=== PATIENT | male | born 1960 | race American Indian/Alaskan Native ===

== ENCOUNTER 2018-09-11 15:21 | Inpatient (IN) | payer MEDICAID, OTHER ==
[2018-09-11 16:09] VITALS: BMI 26.8
--- NOTE | 2018-09-11 16:30 | ED PDOC ---
Arrival/HPI - General Chief Complaint: Psychiatric Evaluation Time Seen by Provider: 09/11/18 16:07 Historian: Patient - History of Present Illness Narrative History of Present Illness (Text): 09/11/18 16:26 57 year old male, whose past medical history includes bipolar disorder (patient non compliant with medications), presents to the Emergency Department accompanied by criminal justice social worker, for a psychiatric evaluation. Patient reports depression, but denies any suicidal, homicidal ideation, or somatic complaints. Patient also denies any fevers, chills, headache, dizziness, chest pain, shortness of breath, dyspnea on exertion, cough, abdominal pain, nausea, vomiting, diarrhea, back pain, neck pain, urinary/bowel changes, or any other complaint. Time/Duration: Prior to Arrival Symptom Course: Unchanged Activities at Onset: Light Context: Home Past Medical History - Provider Review Nursing Documentation Reviewed: Yes - Infectious Disease Hx of Infectious Diseases: None - Cardiac Hx Hypertension: Yes (sometimes takes medication) - Pulmonary Hx Asthma: Yes - Neurological Hx Neurological Disorder: No - HEENT Hx HEENT Disorder: No - Renal Hx Renal Disorder: No - Endocrine/Metabolic Hx Endocrine Disorders: No - Hematological/Oncological Hx Blood Disorders: No - Integumentary Hx Dermatological Disorder: No - Musculoskeletal/Rheumatological Hx Musculoskeletal Disorders: No - Gastrointestinal Hx Gastrointestinal Disorders: No - Genitourinary/Gynecological Hx Genitourinary Disorders: No - Psychiatric Hx Psychophysiologic Disorder: No Hx Substance Use: No - Surgical History Other/Comment: peg tube insertion - Anesthesia Hx Anesthesia: Yes Hx Anesthesia Reactions: No Hx Malignant Hyperthermia: No Family/Social History - Physician Review Nursing Documentation Reviewed: Yes Family/Social History: Unknown Family HX Smoking Status: Unknown If Ever Smoked Hx Alcohol Use: No Hx Substance Use: No Allergies/Home Meds Allergies/Adverse Reactions: Allergies No Known Allergies Allergy (Verified 08/22/18 12:18) Review of Systems - Review of Systems Constitutional: absent: Fatigue, Fevers Eyes: absent: Vision Changes ENT: absent: Hearing Changes Respiratory: absent: SOB, Cough Cardiovascular: absent: Chest Pain Genitourinary Male: absent: Dysuria, Frequency Musculoskeletal: absent: Back Pain, Neck Pain Skin: absent: Rash Neurological: absent: Headache, Dizziness Endocrine: absent: Diaphoresis Hemo/Lymphatic: absent: Adenopathy Psychiatric: Depression. absent: Anxiety, Suicidal Ideation Physical Exam Vital Signs Reviewed: Yes Temperature: Afebrile Blood Pressure: Normal Pulse: Regular Respiratory Rate: Normal Appearance: Positive for: Well-Appearing, Non-Toxic, Comfortable, Other (poor hygiene) Mental Status: Positive for: Alert and Oriented X 3 - Systems Exam Head: Present: Atraumatic, Normocephalic Pupils: Present: PERRL Extroacular Muscles: Present: EOMI Conjunctiva: Present: Normal Neck: Present: Normal Range of Motion Respiratory/Chest: Present: Clear to Auscultation, Good Air Exchange. No: Respiratory Distress, Accessory Muscle Use Cardiovascular: Present: Regular Rate and Rhythm, Normal S1, S2. No: Murmurs Abdomen: Present: Other (dressing to abdomen wall, clean and dry). No: Tenderness, Distention, Peritoneal Signs Upper Extremity: Present: Normal Inspection. No: Cyanosis, Edema Lower Extremity: Present: Normal Inspection. No: Edema Neurological: Present: GCS=15, CN II-XII Intact, Speech Normal Skin: Present: Warm, Dry, Normal Color. No: Rashes Psychiatric: Present: Alert, Oriented x 3, Normal Insight, Normal Concentration Medical Decision Making ED Course and Treatment: 09/11/18 16:35 Impression: 57 year old male who presents to the ED accompanied by criminal justice social worker for a psychiatric evaluation. Plan: --- EKG -- Labs -- Chest X-Ray -- [facility] Crisis Evaluation -- Urinalysis -- Reassess and disposition Prior Visits: Notes and results from previous visits were reviewed. Progress Notes: EKG: NSR @ 80 bpm. Normal intervals. No S/T changes. 09/11/18 17:12 Labs show baseline anemia. 09/11/18 17:49 Chest X-Ray Impression: No acute findings. 09/11/18 19:44 Patient medically cleared pending psych 09/11/18 19:[address] Peraza pending psych dispo - RAD Interpretation Radiology Orders: 09/11/18 16:09 CHEST PORTABLE [RAD] Stat - Scribe Statement The provider has reviewed the documentation as recorded by the Scribe Mary Man Provider Scribe Attestation: All medical record entries made by the Scribe were at my direction and personally dictated by me. I have reviewed the chart and agree that the record accurately reflects my personal performance of the history, physical exam, medi david decision making, and the department course for this patient. I have also personally directed, reviewed, and agree with the discharge instructions and disposition. Disposition/Present on Arrival - Present on Arrival Any Indicators Present on Arrival: No History of DVT/PE: No History of Uncontrolled Diabetes: No Urinary Catheter: No History of Decub. Ulcer: No History Surgical Site Infection Following: None - Disposition Have Diagnosis and Disposition been Completed?: No Diagnosis: Bipolar 1 disorder Disposition Time: 19:45 Patient Plan: Admission Patient Problems: Current Active Problems Problem Status Onset Bipolar 1 disorder Acute Condition: [facility] Referrals: PCP,NO [Primary Care Provider] - Follow up with primary Forms: [employer] ([place])
[2018-09-11 16:52] LABS: BASO # 0.04 K/mm3 (0.0-2.0); EOS # 0.2 (0.0-0.7); EOS % 4.5 % (1.5-5.0); HEMOGLOBIN 11.3 g/dL (14.0-18.0); LYMPH # 2.4 (1.2-3.4); LYMPH % 58.6 % (22.0-35.0); MEAN CELL VOLUME 84.8 fl (80.0-105.0); MEAN CORPUSCULAR HEMOGLOBIN 27.6 pg (25.0-35.0); MEAN CORPUSCULAR HGB CONC 32.6 g/dl (31.0-37.0); MEAN PLATELET VOLUME 9.8 fl (7.0-11.0); MONO # 0.3 (0.1-0.6); MONO % 8.4 % (1.0-6.0); RBC 4.09 10^6/uL (3.5-6.1); RED CELL DISTRIBUTION WIDTH 15.1 % (11.5-14.5)
[2018-09-11 16:58] LABS: ALB/GLOB RATIO 1.1 (1.1-1.8); ALBUMIN 3.9 g/dL (3.0-4.8); ALT/SGPT 15 U/L (7-56); AST/SGOT 22 U/L (17-59); BLOOD UREA NITROGEN 12 mg/dL (7-21); CALCIUM 9.1 mg/dL (8.4-10.5); GFR NON-AFRICAN AMERICAN 53
--- NOTE | 2018-09-11 17:07 | CARD ---
APPROVED REPORT Date of service: 09/11/2018 EKG Measurement Heart [id number] <Conclusion> Normal sinus rhythm Normal ECG
--- NOTE | 2018-09-11 17:45 | RAD ---
Date of service: 09/11/2018 HISTORY: psych COMPARISON: No prior. FINDINGS: LUNGS: The lungs are well inflated and clear. PLEURA: No pleural effusions or pneumothorax. CARDIOVASCULAR: The heart is normal in size. No aortic atherosclerotic calcifications present. OSSEOUS STRUCTURES: Within normal limits for the patient's age. VISUALIZED UPPER ABDOMEN: Normal. OTHER FINDINGS: There are multiple round short can't pellets overlying the right thoracic cage. IMPRESSION: No acute findings.
[2018-09-11 18:58] LABS: URINE BILIRUBIN NEGATIVE (NEGATIVE); URINE BLOOD NEGATIVE (NEGATIVE); URINE GLUCOSE (UA) NEGATIVE (NEGATIVE); URINE LEUKOCYTE ESTERASE NEGATIVE Leu/uL (NEGATIVE); URINE PROTEIN NEGATIVE mg/dL (<30 mg/dL); URINE UROBILINOGEN 0.2 E.U./dL (<1 E.U./dL)
[2018-09-11 19:03] LABS: URINE APPEARANCE CLEAR (CLEAR); URINE COLOR YELLOW (YELLOW)
[2018-09-11 19:34] LABS: BARBITURATES, UR NEGATIVE (NEGATIVE); BENZODIAZEPINES, UR NEGATIVE (NEGATIVE); OPIATES, UR NEGATIVE (NEGATIVE); PHENCYCLIDINE, UR NEGATIVE (NEGATIVE)
[2018-09-11] MEDS ORDERED: Magnesium Hydroxide Susp 30 ml UD PO PRN (22:04)
[2018-09-11 22:11] VITALS: O2SAT 96
--- NOTE | 2018-09-11 23:14 | PCM.BM ---
<Elias Knox - Last Filed: 09/11/18 23:10> Treatment Plan Problems - Problems identified on initial assessmt Altered thought process Date Initiated: 09/11/18 Time Initiated: 23:11 Assessment reference: NA Status: Active Medication non-adherence Date Initiated: 09/11/18 Time Initiated: 23:11 Assessment reference: NA Status: Active Altered sleep p[attern Date Initiated: 09/11/18 Time Initiated: 23:12 Assessment reference: NA Status: Active Treatment assets and liabiliti Patient Assests: cooperative Patient Liabilities: live alone, poor support system, substance abuse, medical problems, imparied memory - Milieu Protocol Maintain good personal hygiene: daily Encourage regular showers, daily Remind patient to perform daily oral care Conduct patient checks and document Observation sheet: Q15 minutes Maintain personal safety: every shift Educate patient to report safety concerns to staff, every shift Monitor environment for contraband/sharps Medication safety: Monitor for expected outcome, potential side effects: every shift, Assess barriers to learning: every shift, Assess readiness for medication education: every shift Family Contact Family involvement: Patient does not wish Family/SO involvement Discharge/Continuing Care - Education Needs Education Needs: Patient Medication, Patient Diagnosis/Disease Process, Patient Coping Skills, Patient Community resources, Patient Activities of Daily Living, Patient Pain, Patient Nutrition, Patient Personal Hygiene/Grooming, Patient Aftercare Safety Plan - Discharge Discharge Criteria: Tolerates medication w/o severe side effects, Free of Suicidal thoughts, Normal sleep pattern, Ability to care for self, No longer exhibiting s/s of withdrawal, Reduction of target symptoms Discharge to:: Correction <Megan Ross - Last Filed: 09/12/18 13:54> - Diagnosis (1) Polysubstance abuse Status: Acute Interventions: 09/12/18 13:55 Monitoring withdrawal symptoms Medical detoxification Pharmacotherapy for alcohol/benzos/opioid dependence Maintaining sobriety Relapse prevention Possible rehabilitation Motivational interviewing 12-step programs: AA meetings (2) Bipolar 1 disorder Status: Acute Interventions: 09/12/18 13:55 Psychoeducation Psychopharmacology/adjustment of medications as needed/ monitoring possible side effects Monitor blood level of mood stabilizers Evaluate pt on daily basis Compliance with medications and follow up appointments Suicide and homicide risk assessment and prevention, coping strategies, safety plan Relapse prevention Reduction of symptoms Improve functional status Family involvement As outpatient: cognitive behavioral therapy <Sona Beyer Y - Last Filed: 09/13/18 15:09> Family Contact Family involvement: Famliy/SO not involved - Outside Agency [facility] Prevention Intervention Care involvment: Information-sharing Agency contact name: Alicja Rascon, shoe caser
[2018-09-12 07:55] LABS: GLUCOSE,FASTING 92 mg/dL (65-110); HDL CHOLESTEROL 40 mg/dL (29-60)
[2018-09-12 08:06] LABS: LDL CHOLESTEROL 97 mg/dL (0-129)
[2018-09-12] MEDS ORDERED: Albuterol HFA 90 mcg/actuation (8 g) IH PRN (11:39)
--- NOTE | 2018-09-12 12:33 | CP.PCM.CON ---
<JanesZbigniew parkerd - Last Filed: 09/12/18 14:55> History of Present Illness - History of Present Illness History of Present Illness: Ariel Marrero, PGY-1 Medicine Consult Note for Dr. Granda: CC: Not feeling himself Consulted For: Medical Management Pt is a 57 yo M with pmhx of poorly controlled asthma, HTN and bipolar disorder who presented to the [facility] accompanied by executive secretary social welfare for not feeling himself and was then was accepted to the psych floor. Pt in the ED reported depression, but denied SI/HI. Medical team is consulted for management of underlying medical conditions. Pt was seen on the psych floor in bed in the AM. Pt states that he took heroin day before yesterday, which he snorted. He states that he is having some abdominal pain, but otherwise denies any other acute complaints at this time. Pt states that he does not usually take anything for his asthma and does not have a rescue inhaler. Pt also reports that he takes one medication for his HTN but is not sure which medication he takes. At this time he denies fevers, chills, headache, lightheadedness, chest pain, palpitations, cough, SOB, n/v, c/d or dysuria. Pmhx: poorly controlled asthma, HTN and bipolar disorder Pshx: Denies All: NKDA Soc: Admits to smoking 1/2 ppd x 6 months, admits to social EtOH use (1 drink on weekends), admits to heroin use last used day before yesterday (snorted) Fam Hx: Denies Review of Systems - Review of Systems Review of Systems: 12 point ROS reviewed and negative except noted in HPI above Past Patient History - Infectious Disease Hx of Infectious Diseases: None - Past Social History Smoking Status: Unknown If Ever Smoked - CARDIAC Hx Hypertension: Yes (sometimes takes medication) - PULMONARY Hx Asthma: Yes - NEUROLOGICAL Hx Neurological Disorder: No - HEENT Hx HEENT Problems: No - RENAL Hx Chronic Kidney Disease: No - ENDOCRINE/METABOLIC Hx Endocrine Disorders: No - HEMATOLOGICAL/ONCOLOGICAL Hx Blood Disorders: No - INTEGUMENTARY Hx Dermatological Problems: No - MUSCULOSKELETAL/RHEUMATOLOGICAL Hx Musculoskeletal Disorders: No - GASTROINTESTINAL Hx Gastrointestinal Disorders: No - GENITOURINARY/GYNECOLOGICAL Hx Genitourinary Disorders: No - PSYCHIATRIC Hx Bipolar Disorder: Yes Hx Substance Use: Yes - SURGICAL HISTORY Other/Comment: peg tube insertion - ANESTHESIA Hx Anesthesia: Yes Hx Anesthesia Reactions: No Hx Malignant Hyperthermia: No Meds Allergies/Adverse Reactions: Allergies Allergy/AdvReac Type Severity Reaction Status Date / Time No Known Allergies Allergy Verified 09/11/18 21:30 - Medications Medications: Current Medications Acetaminophen (Tylenol 325mg Tab) 650 mg PO Q6H PRN PRN Reason: Pain, moderate (4-7) Last Admin: 09/11/18 22:19 Dose: 650 mg Al Hydrox/Mg Hydrox/Simethicone (Maalox Plus 30 Ml) 30 ml PO DAILY PRN PRN Reason: Upset Stomach Albuterol (Ventolin Hfa 90 Mcg/Actuation (8 G)) 2 puff IH [id number] PRN PRN Reason: Shortness of Breath Amlodipine Besylate (Norvasc) 5 mg PO DAILY DELMY Citalopram Hydrobromide (Celexa) 10 mg PO DAILY DELMY Last Admin: 09/12/18 08:07 Dose: 10 mg Clonidine HCl (Catapres) 0.1 mg PO Q12 PRN PRN Reason: withdrawal Last Admin: 09/11/18 22:20 Dose: 0.1 mg Magnesium Hydroxide (Milk Of Magnesia) 30 ml PO DAILY PRN PRN Reason: Constipation Zaleplon (Sonata) 5 mg PO HS PRN PRN Reason: Insomnia Last Admin: 09/11/18 22:19 Dose: 5 mg Physical Exam - Constitutional Appears: Well, Non-toxic, No Acute Distress - Head Exam Head Exam: ATRAUMATIC, NORMAL INSPECTION, NORMOCEPHALIC - Eye Exam Eye Exam: EOMI, Normal appearance, PERRL - Respiratory Exam Respiratory Exam: Clear to Auscultation Bilateral, NORMAL BREATHING PATTERN. absent: Accessory Muscle Use, Rales, Rhonchi, Wheezes, Respiratory Distress, Stridor - Cardiovascular Exam Cardiovascular Exam: REGULAR RHYTHM, +S1, +S2. absent: Gallop, Rubs - GI/Abdominal Exam GI & Abdominal Exam: Normal Bowel Sounds, Soft. absent: Distended, Firm, Guarding, Hernia, Tenderness - Extremities Exam Extremities exam: Positive for: normal inspection, tenderness, pedal pulses present. Negative for: calf tenderness, pedal edema - Back Exam Back exam: NORMAL INSPECTION. absent: CVA tenderness (L), CVA tenderness (R) - Neurological Exam Neurological exam: Alert, Oriented x3 - Psychiatric Exam Psychiatric exam: Depressed - Skin Skin Exam: Dry, Intact, Warm Results - Vital Signs Recent Vital Signs: Last Vital Signs Temp 98.1 F 09/12/18 07:26 Pulse 80 09/12/18 07:26 Resp 20 09/12/18 07:26 BP 118/72 09/12/18 07:26 Pulse Ox 96 09/11/18 22:10 - Labs Result Diagrams: 09/11/18 16:35 09/11/18 16:35 Labs: Laboratory Results - last 24 hr 09/11/18 09/11/18 09/11/18 16:35 16:35 16:35 WBC 4.0 L RBC 4.09 Hgb 11.3 L Hct 34.7 L MCV 84.8 MCH 27.6 MCHC 32.6 RDW 15.1 H Plt Count 310 MPV 9.8 Neut % (Auto) 27.5 L Lymph % (Auto) 58.6 H Erath % (Auto) 8.4 H Eos % (Auto) 4.5 Baso % (Auto) 1.0 Lymph # (Auto) 2.4 Erath # (Auto) 0.3 Eos # (Auto) 0.2 Baso # (Auto) 0.04 Absolute Neuts (auto) 1.11 L Sodium 137 Potassium 3.8 Chloride 103 Carbon Dioxide 26 Anion Gap 11 BUN 12 Creatinine 1.4 Est GFR ( Amer) > 60 Est GFR (Non-Af Amer) 53 Random Glucose 91 Fasting Glucose Calcium 9.1 Total Bilirubin 0.1 L AST 22 ALT 15 Alkaline Phosphatase 94 Total Protein 7.3 Albumin 3.9 Globulin 3.5 Albumin/Globulin Ratio 1.1 Triglycerides Cholesterol LDL Cholesterol Direct HDL Cholesterol TSH 3rd Generation Urine Color Urine Appearance Urine pH Ur Specific [place] Urine Protein Urine Glucose (UA) Urine Ketones Urine Blood Urine Nitrate Urine Bilirubin Urine Urobilinogen Ur Leukocyte Esterase Urine Opiates Screen Urine Methadone Screen Ur Barbiturates Screen Ur Phencyclidine Scrn Ur Amphetamines Screen U Benzodiazepines Scrn U Oth Cocaine Metabols U Cannabinoids Screen Alcohol, Quantitative < 10 09/11/18 09/11/18 09/12/18 18:30 18:30 07:20 WBC RBC Hgb Hct MCV MCH MCHC RDW Plt Count MPV Neut % (Auto) Lymph % (Auto) Erath % (Auto) Eos % (Auto) Baso % (Auto) Lymph # (Auto) Erath # (Auto) Eos # (Auto) Baso # (Auto) Absolute Neuts (auto) Sodium Potassium Chloride Carbon Dioxide Anion Gap BUN Creatinine Est GFR ( Amer) Est GFR (Non-Af Amer) Random Glucose Fasting Glucose 92 Calcium Total Bilirubin AST ALT Alkaline Phosphatase Total Protein Albumin Globulin Albumin/Globulin Ratio Triglycerides 97 Cholesterol 180 LDL Cholesterol Direct 97 HDL Cholesterol 40 TSH 3rd Generation Urine Color Yellow Urine Appearance Clear Urine pH 7.0 Ur Specific [place] <= 1.005 Urine Protein Negative Urine Glucose (UA) Negative Urine Ketones Negative Urine Blood Negative Urine Nitrate Negative Urine Bilirubin Negative Urine Urobilinogen 0.2 Ur Leukocyte Esterase Negative Urine Opiates Screen Negative Urine Methadone Screen Negative Ur Barbiturates Screen Negative Ur Phencyclidine Scrn Negative Ur Amphetamines Screen Negative U Benzodiazepines Scrn Negative U Oth Cocaine Metabols Negative U Cannabinoids Screen Negative Alcohol, Quantitative 09/12/18 07:20 WBC RBC Hgb Hct MCV MCH MCHC RDW Plt Count MPV Neut % (Auto) Lymph % (Auto) Erath % (Auto) Eos % (Auto) Baso % (Auto) Lymph # (Auto) Erath # (Auto) Eos # (Auto) Baso # (Auto) Absolute Neuts (auto) Sodium Potassium Chloride Carbon Dioxide Anion Gap BUN Creatinine Est GFR ( Amer) Est GFR (Non-Af Amer) Random Glucose Fasting Glucose Calcium Total Bilirubin AST ALT Alkaline Phosphatase Total Protein Albumin Globulin Albumin/Globulin Ratio Triglycerides Cholesterol LDL Cholesterol Direct HDL Cholesterol TSH 3rd Generation 1.69 Urine Color Urine Appearance Urine pH Ur Specific [place] Urine Protein Urine Glucose (UA) Urine Ketones Urine Blood Urine Nitrate Urine Bilirubin Urine Urobilinogen Ur Leukocyte Esterase Urine Opiates Screen Urine Methadone Screen Ur Barbiturates Screen Ur Phencyclidine Scrn Ur Amphetamines Screen U Benzodiazepines Scrn U Oth Cocaine Metabols U Cannabinoids Screen Alcohol, Quantitative Assessment & Plan - Assessment and Plan (Free Text) Assessment: Pt is a 57 yo M with pmhx of poorly controlled asthma, HTN and bipolar disorder who presented to the [facility] ED accompanied by executive secretary social welfare for not feeling himself and was then was accepted to the psych floor. Pt in the ED reported depression, but denied SI/HI. Medical team is consulted for management of underlying medical conditions. Plan: HTN: - Norvasc 5 qd - Hold if SBP is less than 100 - Cont with catapres Asthma - Ventolin HFA q6 PRN Bipolar Disorder: - Management as per primary team Thank you for consulting the medical team to care for this patient. We will be signing off at this time, re-consult as needed. Pt seen and discussed with Dr. Jesus Alberto Marrero, PGY-1 <Rogelio Granda - Last Filed: 09/12/18 15:32> Meds - Medications Medications: Current Medications Acetaminophen (Tylenol 325mg Tab) 650 mg PO Q6H PRN PRN Reason: Pain, moderate (4-7) Last Admin: 09/11/18 22:19 Dose: 650 mg Al Hydrox/Mg Hydrox/Simethicone (Maalox Plus 30 Ml) 30 ml PO DAILY PRN PRN Reason: Upset Stomach Albuterol (Ventolin Hfa 90 Mcg/Actuation (8 G)) 2 puff IH [id number] PRN PRN Reason: Shortness of Breath Amlodipine Besylate (Norvasc) 5 mg PO DAILY [facility] Clonidine HCl (Catapres) 0.1 mg PO Q12 PRN PRN Reason: withdrawal Last Admin: 09/11/18 22:20 Dose: 0.1 mg Divalproex Sodium (Depakote Dr (*Bid*)) 250 mg PO BID DELMY; Protocol Lorazepam (Ativan) 2 mg IM Q6H PRN PRN Reason: Agitation Lorazepam (Ativan) 2 mg PO Q6 PRN; Protocol PRN Reason: alcohol withdrawals Magnesium Hydroxide (Milk Of Magnesia) 30 ml PO DAILY PRN PRN Reason: Constipation Mirtazapine (Remeron) 15 mg PO HS [facility] Multivitamins/Minerals (Therapeutic-M Tab) 1 tab PO DAILY [facility] Ondansetron HCl (Zofran Odt) 4 mg PO Q8H PRN PRN Reason: Nausea/Vomiting Tramadol HCl (Ultram) 50 mg PO TID PRN PRN Reason: Pain, severe 7/10 Zaleplon (Sonata) 5 mg PO HS PRN PRN Reason: Insomnia Last Admin: 09/11/18 22:19 Dose: 5 mg Ziprasidone (Geodon Cap) 20 mg PO Q6H PRN; Protocol PRN Reason: psychosis/agitation Ziprasidone (Geodon Inj) 20 mg IM Q6H PRN; Protocol PRN Reason: severe agitaiton/psychosis Results - Vital Signs Recent Vital Signs: Last Vital Signs Temp 98.1 F 09/12/18 07:26 Pulse 80 09/12/18 07:26 Resp 20 09/12/18 07:26 BP 118/72 09/12/18 07:26 Pulse Ox 96 09/11/18 22:10 - Labs Result Diagrams: 09/11/18 16:35 09/11/18 16:35 Labs: Laboratory Results - last 24 hr 09/11/18 09/11/18 09/11/18 16:35 16:35 16:35 WBC 4.0 L RBC 4.09 Hgb 11.3 L Hct 34.7 L MCV 84.8 MCH 27.6 MCHC 32.6 RDW 15.1 H Plt Count 310 MPV 9.8 Neut % (Auto) 27.5 L Lymph % (Auto) 58.6 H Erath % (Auto) 8.4 H Eos % (Auto) 4.5 Baso % (Auto) 1.0 Lymph # (Auto) 2.4 Erath # (Auto) 0.3 Eos # (Auto) 0.2 Baso # (Auto) 0.04 Absolute Neuts (auto) 1.11 L Sodium 137 Potassium 3.8 Chloride 103 Carbon Dioxide 26 Anion Gap 11 BUN 12 Creatinine 1.4 Est GFR ( Amer) > 60 Est GFR (Non-Af Amer) 53 Random Glucose 91 Fasting Glucose Calcium 9.1 Total Bilirubin 0.1 L AST 22 ALT 15 Alkaline Phosphatase 94 Total Protein 7.3 Albumin 3.9 Globulin 3.5 Albumin/Globulin Ratio 1.1 Triglycerides Cholesterol LDL Cholesterol Direct HDL Cholesterol TSH 3rd Generation Urine Color Urine Appearance Urine pH Ur Specific [place] Urine Protein Urine Glucose (UA) Urine Ketones Urine Blood Urine Nitrate Urine Bilirubin Urine Urobilinogen Ur Leukocyte Esterase Urine Opiates Screen Urine Methadone Screen Ur Barbiturates Screen Ur Phencyclidine Scrn Ur Amphetamines Screen U Benzodiazepines Scrn U Oth Cocaine Metabols U Cannabinoids Screen Alcohol, Quantitative < 10 09/11/18 09/11/18 09/12/18 18:30 18:30 07:20 WBC RBC Hgb Hct MCV MCH MCHC RDW Plt Count MPV Neut % (Auto) Lymph % (Auto) Erath % (Auto) Eos % (Auto) Baso % (Auto) Lymph # (Auto) Erath # (Auto) Eos # (Auto) Baso # (Auto) Absolute Neuts (auto) Sodium Potassium Chloride Carbon Dioxide Anion Gap BUN Creatinine Est GFR ( Amer) Est GFR (Non-Af Amer) Random Glucose Fasting Glucose 92 Calcium Total Bilirubin AST ALT Alkaline Phosphatase Total Protein Albumin Globulin Albumin/Globulin Ratio Triglycerides 97 Cholesterol 180 LDL Cholesterol Direct 97 HDL Cholesterol 40 TSH 3rd Generation Urine Color Yellow Urine Appearance Clear Urine pH 7.0 Ur Specific [place] <= 1.005 Urine Protein Negative Urine Glucose (UA) Negative Urine Ketones Negative Urine Blood Negative Urine Nitrate Negative Urine Bilirubin Negative Urine Urobilinogen 0.2 Ur Leukocyte Esterase Negative Urine Opiates Screen Negative Urine Methadone Screen Negative Ur Barbiturates Screen Negative Ur Phencyclidine Scrn Negative Ur Amphetamines Screen Negative U Benzodiazepines Scrn Negative U Oth Cocaine Metabols Negative U Cannabinoids Screen Negative Alcohol, Quantitative 09/12/18 07:20 WBC RBC Hgb Hct MCV MCH MCHC RDW Plt Count MPV Neut % (Auto) Lymph % (Auto) Erath % (Auto) Eos % (Auto) Baso % (Auto) Lymph # (Auto) Erath # (Auto) Eos # (Auto) Baso # (Auto) Absolute Neuts (auto) Sodium Potassium Chloride Carbon Dioxide Anion Gap BUN Creatinine Est GFR ( Amer) Est GFR (Non-Af Amer) Random Glucose Fasting Glucose Calcium Total Bilirubin AST ALT Alkaline Phosphatase Total Protein Albumin Globulin Albumin/Globulin Ratio Triglycerides Cholesterol LDL Cholesterol Direct HDL Cholesterol TSH 3rd Generation 1.69 Urine Color Urine Appearance Urine pH Ur Specific [place] Urine Protein Urine Glucose (UA) Urine Ketones Urine Blood Urine Nitrate Urine Bilirubin Urine Urobilinogen Ur Leukocyte Esterase Urine Opiates Screen Urine Methadone Screen Ur Barbiturates Screen Ur Phencyclidine Scrn Ur Amphetamines Screen U Benzodiazepines Scrn U Oth Cocaine Metabols U Cannabinoids Screen Alcohol, Quantitative Attending/Attestation - Attestation I have personally seen and examined this patient.: Yes I have fully participated in the care of the patient.: Yes I have reviewed all pertinent clinical information: Yes Notes (Text): Patient seen and examined with the residents, agree with above Questioned about his asthma and states he has not had asthma symptoms "in a long time" and does not use any medication. Will add Albuterol prn. Regarding his HTN - bp currently on controlled. Medicine team will sign off, please call for any questions. Thank you.
--- NOTE | 2018-09-12 13:54 | PCM.PSYCH ---
Initial Psychiatric Evaluation - Initial Psychiatric Evaluation Type of Admission: Voluntary Legal Status: Capacity Chief Complaint (in patient's own words): "I was feeling life is not worth living..." Patient's Reaction to Hospitalization: pt was admitted for evaluation of depression, inability to function, disorganized thoughts. History of Present Illness and Precipitating Events: shortly pt is 57 year old male, not known previous psych h/o, self reported h/o bipolar disorder, denied previous psych admissions, denied h/o suicidal attempts, pt currently homeless, was brought in to the hospital for evaluation of depression, inability to function and "thoughts are not right.", passive wish to be , on top of that pt was using drugs, no social support, pt required further evaluation and stabilization and med adjustment. pt was seen and examined at the treatment team room with medical student. Patient presented with poor personal hygiene, there is strong body odor, difficult to stay focused and concentrate, fair ADLs. Patient seems to be poor and unreliable historian, especially questions which are related to the medical issues. Patient reports that that he became homeless about 1 months ago, before that patient was living with his sister Gurpreet who is very strict, she has a lot of rules", patient decided to leave her house, patient started to leave on streets, patient was using drugs such as heroin snorting, cocaine snorting, "my drug of choice is heroin, I would spend $40 a day on my habits, last time I used night prior to come to the hospital", patient reports that his public health social worker did not like the way he presented and brought patient to the hospital. Patient reports that "I was very angry, everything was getting into my nerves, I was agitated, that is why she brought me to the hospital" Patient reported that she was feeling depressed, hopeless, helpless, worthless, guilty, passive wish to be , patient denied any intent or plan to kill himself. Patient denied hearing voices, denied seeing things, but patient complains that "my thoughts are not right." Patient reports that all less comfortable, denies any diarrhea, denied opioid withdrawal symptoms. Patient reported that he was noncompliant with his medications, patient reports that he was feeling medication in [facility] [place], patient does not remember medication was changed to be on. Patient reported smoking cigarettes 10-15 a day, nicotine patch was offered, patient declined that offer. Past psychiatric history: Patient reported being diagnosed with bipolar disorder, denied suicidal attempts in the past. Pt reports one previous overdose last month were narcan was administered. Pt has been in detox 4 times with most recent 1 1/2 years ago in [place] where pt was sober for 1 year. Pt reports he relapsed 6 months ago on heroin. Medical history: Patient denied any major medical issues, respiratory report patient has PEG tube removed two weeks ago as per record, but patient does not remember inserted, does not know why it was inserted, as per history patient suffers from hypertension. Social history: Patient does not work, patient is homeless. Family history: Patient denied any family history of mental illnesses, denied history of suicidal attempts. Patient denied any legal history. Patient denied being abused in his life. 09/11/18 16:35 09/11/18 16:35 Lab Results 09/12/18 07:20: TSH 3rd Generation 1.69 09/12/18 07:20: Fasting Glucose 92, Triglycerides 97, Cholesterol 180, LDL Cholesterol Direct 97, HDL Cholesterol 40 09/11/18 18:30: Urine Opiates Screen Negative, Urine Methadone Screen Negative, Ur Barbiturates Screen Negative, Ur Phencyclidine Scrn Negative, Ur Amphetamines Screen Negative, U Benzodiazepines Scrn Negative, U Oth Cocaine Metabols Negative, U Cannabinoids Screen Negative 09/11/18 18:30: Urine Color Yellow, Urine Appearance Clear, Urine pH 7.0, Ur Specific [place] <= 1.005, Urine Protein Negative, Urine Glucose (UA) Negative, Urine Ketones Negative, Urine Blood Negative, Urine Nitrate Negative, Urine Bilirubin Negative, Urine Urobilinogen 0.2, Ur Leukocyte Esterase Negative 09/11/18 16:35: Alcohol, Quantitative < 10 09/11/18 16:35: Sodium 137, Potassium 3.8, Chloride 103, Carbon Dioxide 26, Anion Gap 11, BUN 12, Creatinine 1.4, Est GFR ( Amer) > 60, Est GFR (Non- Af Amer) 53, Random Glucose 91, Calcium 9.1, Total Bilirubin 0.1 L, AST 22, ALT 15, Alkaline Phosphatase 94, Total Protein 7.3, Albumin 3.9, Globulin 3.5, Albumin/Globulin Ratio 1.1 09/11/18 16:35: WBC 4.0 L, RBC 4.09, Hgb 11.3 L, Hct 34.7 L, MCV 84.8, MCH 27.6, MCHC 32.6, RDW 15.1 H, Plt Count 310, MPV 9.8, Neut % (Auto) 27.5 L, Lymph % (Auto) 58.6 H, [place] % (Auto) 8.4 H, Eos % (Auto) 4.5, Baso % (Auto) 1.0, Lymph # (Auto) 2.4, [place] # (Auto) 0.3, Eos # (Auto) 0.2, Baso # (Auto) 0.04, Absolute Neuts (auto) 1.11 L Vital Signs Temp Pulse Pulse Resp BP Pulse Ox 09/12/18 07:26 98.1 F 80 20 118/72 09/11/18 23:19 92 H 18 09/11/18 22:20 92 H 150/96 H 09/11/18 22:10 97.8 F 92 H 18 150/92 H 96 09/11/18 21:14 80 18 131/72 100 09/11/18 20:33 98.7 F 80 18 130/79 100 09/11/18 16:47 98.7 F 82 18 136/88 100 [facility], [phone] patient was on the following medications: Depakote 500 mg twice a day last filled in December 2017 and Amlodipine 5 mg daily filled December 2017 No recent medications The patient failed the outpatient lower level of care: Yes Current Medications: Active Medications Generic Name Dose Route Start Last Admin Trade Name Freq PRN Reason Stop Dose Admin Acetaminophen 650 mg 09/11/18 22:04 09/11/18 22:19 Tylenol 325mg Tab PO 650 mg Q6H PRN Administration Pain, moderate (4-7) Al Hydrox/Mg Hydrox/Simethicone 30 ml 09/11/18 22:04 Maalox Plus 30 Ml PO DAILY PRN Upset Stomach Citalopram Hydrobromide 10 mg 09/12/18 08:00 09/12/18 08:07 Celexa PO 10 mg DAILY DELMY Administration Clonidine HCl 0.1 mg 09/11/18 22:07 09/11/18 22:20 Catapres PO 0.1 mg Q12 PRN Administration withdrawal Magnesium Hydroxide 30 ml 09/11/18 22:04 Milk Of Magnesia PO DAILY PRN Constipation Zaleplon 5 mg 09/11/18 22:05 09/11/18 22:19 Sonata PO 5 mg HS PRN Administration Insomnia Present on Admission - Present on Admission Any Indicators Present on Admission: No Review of Systems - Review of Systems Systems not reviewed;Unavailable: Acuity of Condition - Constitutional Constitutional: As Per HPI - EENT Eyes: As Per HPI Ears: As Per HPI Nose/Mouth/Throat: As Per HPI - Cardiovascular Cardiovascular: As Per HPI - Respiratory Respiratory: As Per HPI - Gastrointestinal Gastrointestinal: As Per HPI - Genitourinary Genitourinary: As Per HPI - Reproductive: Male Reproductive:Male: As Per HPI - Musculoskeletal Musculoskeletal: As Per HPI - Integumentary Integumentary: As Per HPI - Neurological Neurological: As Per HPI - Psychiatric Psychiatric: As Per HPI - Endocrine Endocrine: As Per HPI - Hematologic/Lymphatic Hematologic: As Per HPI Past Patient History - Past Psychiatric History Previous Treatment History: Inpatient Prior Professional Help: See HPI Prior Psychiatric Treatment: See HPI At what hospital: See HPI Duration: See HPI Nature of Treatment: See HPI Explanation of prior treatment: See HPI - PSYCHIATRIC Hx Bipolar Disorder: Yes Hx Substance Use: Yes - Infectious Disease Hx of Infectious Diseases: None - CARDIAC Hx Hypertension: Yes (sometimes takes medication) - PULMONARY Hx Asthma: Yes - NEUROLOGICAL Hx Neurological Disorder: No - HEENT Hx HEENT Problems: No - RENAL Hx Chronic Kidney Disease: No - ENDOCRINE/METABOLIC Hx Endocrine Disorders: No - HEMATOLOGICAL/ONCOLOGICAL Hx Blood Disorders: No - INTEGUMENTARY Hx Dermatological Problems: No - MUSCULOSKELETAL/RHEUMATOLOGICAL Hx Musculoskeletal Disorders: No - GASTROINTESTINAL Hx Gastrointestinal Disorders: No - GENITOURINARY/GYNECOLOGICAL Hx Genitourinary Disorders: No - SURGICAL HISTORY Other/Comment: peg tube insertion - ANESTHESIA Hx Anesthesia: Yes Hx Anesthesia Reactions: No Hx Malignant Hyperthermia: No - Medical/Surgical History Reviewed & confirmed: by de Meds Allergies/Adverse Reactions: Allergies Allergy/AdvReac Type Severity Reaction Status Date / Time No Known Allergies Allergy Verified 09/11/18 21:30 Mental Status Examination - Personal Presentation Personal Presentation: Looks stated age - Affect Affect: Flat - Motor Activity Motor Activity: Calm, Psychomotor Retardation - Reliability in Providing Information Reliability in Providing Information: Poor, due to alteration in thoughts, Poor, due to altered mood, Poor, due to cognitve impairment - Speech Speech: Other (Slurred, underproductive) - Mood Mood: Depressed - Formal Thought Process Formal Thought Process: Other ("My thoughts are not right") - Obsessions/Compulsions Obsessions: None Compulsions: None - Cognitive Functions Orientation: Person, Place, Situation Sensorium: Alert Attention/Concentration: Easily distracted Abstract Thinking: [place] Estimate of Intelligence: Below average Judgement: Intact, as evidence by: Insight regarding need for hospitalization - Risk Risk: Withdrawal, Diminished functioning - Strength & Assets Inventory Strength & Assets Inventory: Cooperative, Other (Good physical health, abscess of hallucinations) - Limitations Limitations: Other (Patient is homeless, using drugs) Psychiatric Physical Exam - Physical Exam Reviewed and confirmed: Emergency Department Physical Exam Results - Vital Signs Recent Vital Signs: Last Vital Signs Temp 98.1 F 09/12/18 07:26 Pulse 80 09/12/18 07:26 Resp 20 09/12/18 07:26 BP 118/72 09/12/18 07:26 Pulse Ox 96 09/11/18 22:10 - Labs Result Diagrams: 09/11/18 16:35 09/11/18 16:35 Labs: Laboratory Results - last 24 hr 09/11/18 09/11/18 09/11/18 16:35 16:35 16:35 WBC 4.0 L RBC 4.09 Hgb 11.3 L Hct 34.7 L MCV 84.8 MCH 27.6 MCHC 32.6 RDW 15.1 H Plt Count 310 MPV 9.8 Neut % (Auto) 27.5 L Lymph % (Auto) 58.6 H [place] % (Auto) 8.4 H Eos % (Auto) 4.5 Baso % (Auto) 1.0 Lymph # (Auto) 2.4 [place] # (Auto) 0.3 Eos # (Auto) 0.2 Baso # (Auto) 0.04 Absolute Neuts (auto) 1.11 L Sodium 137 Potassium 3.8 Chloride 103 Carbon Dioxide 26 Anion Gap 11 BUN 12 Creatinine 1.4 Est GFR ( Amer) > 60 Est GFR (Non-Af Amer) 53 Random Glucose 91 Fasting Glucose Calcium 9.1 Total Bilirubin 0.1 L AST 22 ALT 15 Alkaline Phosphatase 94 Total Protein 7.3 Albumin 3.9 Globulin 3.5 Albumin/Globulin Ratio 1.1 Triglycerides Cholesterol LDL Cholesterol Direct HDL Cholesterol TSH 3rd Generation Urine Color Urine Appearance Urine pH Ur Specific [place] Urine Protein Urine Glucose (UA) Urine Ketones Urine Blood Urine Nitrate Urine Bilirubin Urine Urobilinogen Ur Leukocyte Esterase Urine Opiates Screen Urine Methadone Screen Ur Barbiturates Screen Ur Phencyclidine Scrn Ur Amphetamines Screen U Benzodiazepines Scrn U Oth Cocaine Metabols U Cannabinoids Screen Alcohol, Quantitative < 10 09/11/18 09/11/18 09/12/18 18:30 18:30 07:20 WBC RBC Hgb Hct MCV MCH MCHC RDW Plt Count MPV Neut % (Auto) Lymph % (Auto) [place] % (Auto) Eos % (Auto) Baso % (Auto) Lymph # (Auto) [place] # (Auto) Eos # (Auto) Baso # (Auto) Absolute Neuts (auto) Sodium Potassium Chloride Carbon Dioxide Anion Gap BUN Creatinine Est GFR ( Amer) Est GFR (Non-Af Amer) Random Glucose Fasting Glucose 92 Calcium Total Bilirubin AST ALT Alkaline Phosphatase Total Protein Albumin Globulin Albumin/Globulin Ratio Triglycerides 97 Cholesterol 180 LDL Cholesterol Direct 97 HDL Cholesterol 40 TSH 3rd Generation Urine Color Yellow Urine Appearance Clear Urine pH 7.0 Ur Specific [place] <= 1.005 Urine Protein Negative Urine Glucose (UA) Negative Urine Ketones Negative Urine Blood Negative Urine Nitrate Negative Urine Bilirubin Negative Urine Urobilinogen 0.2 Ur Leukocyte Esterase Negative Urine Opiates Screen Negative Urine Methadone Screen Negative Ur Barbiturates Screen Negative Ur Phencyclidine Scrn Negative Ur Amphetamines Screen Negative U Benzodiazepines Scrn Negative U Oth Cocaine Metabols Negative U Cannabinoids Screen Negative Alcohol, Quantitative 09/12/18 07:20 WBC RBC Hgb Hct MCV MCH MCHC RDW Plt Count MPV Neut % (Auto) Lymph % (Auto) [place] % (Auto) Eos % (Auto) Baso % (Auto) Lymph # (Auto) [place] # (Auto) Eos # (Auto) Baso # (Auto) Absolute Neuts (auto) Sodium Potassium Chloride Carbon Dioxide Anion Gap BUN Creatinine Est GFR ( Amer) Est GFR (Non-Af Amer) Random Glucose Fasting Glucose Calcium Total Bilirubin AST ALT Alkaline Phosphatase Total Protein Albumin Globulin Albumin/Globulin Ratio Triglycerides Cholesterol LDL Cholesterol Direct HDL Cholesterol TSH 3rd Generation 1.69 Urine Color Urine Appearance Urine pH Ur Specific [place] Urine Protein Urine Glucose (UA) Urine Ketones Urine Blood Urine Nitrate Urine Bilirubin Urine Urobilinogen Ur Leukocyte Esterase Urine Opiates Screen Urine Methadone Screen Ur Barbiturates Screen Ur Phencyclidine Scrn Ur Amphetamines Screen U Benzodiazepines Scrn U Oth Cocaine Metabols U Cannabinoids Screen Alcohol, Quantitative - EKG Data EKG Interpreted by: ER Physician EKG shows normal: Sinus rhythm Rate: Normal DSM Plan - DSM 5 DSM 5 Diagnosis: Rule out bipolar disorder as per history Pharyngeal disorder Rule out opioid withdrawals Cocaine abuse Rule out substance-induced mood disorder - Recommended/Plan of Treatment Treatment Recommendations and Plan of Treatment: Milieu/structure/supportive therapy SW consultation for discharge plan and social issues, pt is willing to be referred to rehab depakote resumed milligrams twice a day Remeron 15 mg at the nighttime for sleep as well as depression Multivitamins daily Symptomatic treatment for possible opioid withdrawals Medical consult was: family involvement Follow up on labs Will monitor closely Pt was educated about risk/benefits and alternatives of medications, coping strategies (safety plan, suicide prevention), relapse prevention, importance of follow up with psychiatrist and therapist, stay away from drugs/alcohol/smoking Projected ELOS: 7days Prognosis: guarded Discharge Plan and Discharge Criteria: Patient will be not depressed, not psychotic, would not pose danger to self or others, will be able to function, safe discharge plan. - Tobacco Cessation Tobacco Use Status for the last 30 days: Heavy User(>=5 cigs &/or cigars/pipes daily) Tobacco Use Treatment Practical Counseling Provided: No Reason for not providing: Patient refused Tobacco Use Treatment FDA-Approved Cessation Medication Provided: No Reason for not providing: Patient refused tobacco cessation medication - Alcohol or Substance Abuse Does the patient have an Alcohol or Substance Abuse Disorder: Yes Initial Psych Certification - Initial Certification I certify that the inpatient psychiatric facility admission was medically necessary for either: Treatment which could reasonbly be expected to improve pt's condition I estimate of hospitalization is necessary for proper treatment of the patient: 7 Unit of Time: Days My plans for post-hospital care for this patient are: Inpatient rehab, med management b outpatient psychiatrist
[2018-09-12] MEDS: Divalproex 250 mg DR (BID formulation) PO SCH (17:39)
[2018-09-13] MEDS: Multivitamin With Minerals Tab PO SCH (09:53)
[2018-09-13] MEDS: Divalproex 250 mg DR (BID formulation) PO SCH ×2 (09:53→16:25)
--- NOTE | 2018-09-13 15:57 | PCM.PYCHPN ---
Psychiatric Progress Note - Psychiatric Progress Note Patient seen today, length of contact: 25 min Patient Chief Complaint: "I feel little better, but my mind is not right..." Problems Identified/Issues Discussed: Symptoms: Current presentation, treatment plan, discharge plan. Medical Problems: See HPI Diagnostic Results: 09/11/18 16:35 09/11/18 16:35 Lab Results 09/12/18 07:25: RPR Nonreactive 09/12/18 07:20: TSH 3rd Generation 1.69 09/12/18 07:20: Fasting Glucose 92, Triglycerides 97, Cholesterol 180, LDL Cholesterol Direct 97, HDL Cholesterol 40 09/11/18 18:30: Urine Opiates Screen Negative, Urine Methadone Screen Negative, Ur Barbiturates Screen Negative, Ur Phencyclidine Scrn Negative, Ur Amphetamines Screen Negative, U Benzodiazepines Scrn Negative, U Oth Cocaine Metabols Negative, U Cannabinoids Screen Negative 09/11/18 18:30: Urine Color Yellow, Urine Appearance Clear, Urine pH 7.0, Ur Specific [place] <= 1.005, Urine Protein Negative, Urine Glucose (UA) Negative, Urine Ketones Negative, Urine Blood Negative, Urine Nitrate Negative, Urine Bilirubin Negative, Urine Urobilinogen 0.2, Ur Leukocyte Esterase Negative 09/11/18 16:35: Alcohol, Quantitative < 10 09/11/18 16:35: Sodium 137, Potassium 3.8, Chloride 103, Carbon Dioxide 26, Anion Gap 11, BUN 12, Creatinine 1.4, Est GFR ( Amer) > 60, Est GFR (Non- Af Amer) 53, Random Glucose 91, Calcium 9.1, Total Bilirubin 0.1 L, AST 22, ALT 15, Alkaline Phosphatase 94, Total Protein 7.3, Albumin 3.9, Globulin 3.5, Albumin/Globulin Ratio 1.1 09/11/18 16:35: WBC 4.0 L, RBC 4.09, Hgb 11.3 L, Hct 34.7 L, MCV 84.8, MCH 27.6, MCHC 32.6, RDW 15.1 H, Plt Count 310, MPV 9.8, Neut % (Auto) 27.5 L, Lymph % (Auto) 58.6 H, [place] % (Auto) 8.4 H, Eos % (Auto) 4.5, Baso % (Auto) 1.0, Lymph # (Auto) 2.4, [place] # (Auto) 0.3, Eos # (Auto) 0.2, Baso # (Auto) 0.04, Absolute Neuts (auto) 1.11 L Vital Signs Temp Pulse Pulse Resp BP Pulse Ox 09/13/18 09:52 77 117/72 09/13/18 07:10 97.9 F 77 20 117/72 09/12/18 17:44 74 129/80 09/12/18 16:00 74 129/80 09/12/18 07:26 98.1 F 80 20 118/72 09/11/18 23:19 92 H 18 09/11/18 22:20 92 H 150/96 H 09/11/18 22:10 97.8 F 92 H 18 150/92 H 96 09/11/18 21:14 80 18 131/72 100 09/11/18 20:33 98.7 F 80 18 130/79 100 09/11/18 16:47 98.7 F 82 18 136/88 100 DSM 5 Symptoms Update: shortly pt is 57 year old male, not known previous psych h/o, self reported h/o bipolar disorder, denied previous psych admissions, denied h/o suicidal attempts, pt currently homeless, was brought in to the hospital for evaluation of depression, inability to function and "thoughts are not right.", passive wish to be , on top of that pt was using drugs, no social support, pt required further evaluation and stabilization and med adjustment. pt was seen and examined at the treatment team today, patient presented with some improvement with his symptoms, patient took a shower, does not have anybody ordered, patient was able to concentrate and stay focused little bit better. Patient reported that she feels "little better", that he had a good night sleep, but still complained "my thoughts are not right" As per staff patient is not participating in unit activities, self isolating, but no aggression or agitation. As per staff patient had. Of incontinent in the urine, patient already was seen by medical team, if it will be continued, will call medical team again. all labs and vitals WNL. So far patient tolerates medications well, no side effects observed or reported, [place] 0, no EPS. No withdrawal symptoms observed or reported. DSM 5 Rule out bipolar disorder as per history Rule out substance-induced mood disorder Polysubstance abuse Medication Change: Yes Medical Record Reviewed: Yes Consults ordered or reviewed: Medical consult appreciated Mental Status Examination - Cognitive Function Orientation: Person, Place, Situation Memory: Impaired Attention: Poor Concentration: Poor Association: Loose Fund of Knowledge: Poor - Mood Mood: Depressed - Affect Affect: Flat - Formal Thought Process Formal Thought Process: Other ("My thoughts are not right") - Suicidal Ideation Suicidal Ideation: No - Homicidal Ideation Homicidal Ideation: No Goal/Treatment Plan - Goal/Treatment Plan Need for Continued Stay: Remain at risks for inpatient hospitalization, Severe depression anxiety, Discharge may exacerbated symptoms, Severe functional impairment Progress Toward Problem(s) and Goals/Treatment Plan: Milieu/structure/supportive therapy SW consultation for discharge plan and social issues, pt is willing to be referred to rehab depakote 250 mg bid for mood stabilization Remeron 15 mg at the nighttime for sleep as well as depression Multivitamins daily Symptomatic treatment for possible opioid withdrawals Medical consult was: family involvement Follow up on labs Will monitor closely Pt was educated about risk/benefits and alternatives of medications, coping strategies (safety plan, suicide prevention), relapse prevention, importance of follow up with psychiatrist and therapist, stay away from drugs/alcohol/smoking Estimated Date of D/C: 09/18/18
[2018-09-14] MEDS: Divalproex 250 mg DR (BID formulation) PO SCH ×2 (09:13→16:51)
[2018-09-14] MEDS: Multivitamin With Minerals Tab PO SCH (09:14)
--- NOTE | 2018-09-14 09:20 | PCM.PYCHPN ---
Psychiatric Progress Note - Psychiatric Progress Note Patient seen today, length of contact: 25 min Problems Identified/Issues Discussed: I reviewed assessment and recent notes. Patient was interviewed at bedside. He is superficially cooperative but minimally engaged with questioning. Responses are brief. Patient appears preoccupied and doesn't even turn his head on the bed to respond to me. Presently patient denies any new concerns including new discomfort or pain. Reports he is sleeping well. He denies experiencing hallucinations however staff note that patient still appears disorganized. Overall he has been calm and keeping a low profile. He keeps to himself and doesn't participate in groups or activities. Diagnostic Results: Rule out bipolar disorder as per history Pharyngeal disorder Rule out opioid withdrawals Cocaine abuse Rule out substance-induced mood disorder Medication Change: Yes (Added risperdal 0.5 mg HS ) Medical Record Reviewed: Yes Mental Status Examination - Cognitive Function Orientation: Person, Place, Situation Memory: Impaired Attention: Poor Concentration: Poor Association: Loose Fund of Knowledge: Poor - Mood Mood: Depressed - Affect Affect: Flat - Speech Speech: Soft - Formal Thought Process Formal Thought Process: Loosening of associations, Other ("My thoughts are not right") - Suicidal Ideation Suicidal Ideation: No - Homicidal Ideation Homicidal Ideation: No Goal/Treatment Plan - Goal/Treatment Plan Need for Continued Stay: Remain at risks for inpatient hospitalization, Severe depression anxiety, Discharge may exacerbated symptoms, Severe functional impairment Progress Toward Problem(s) and Goals/Treatment Plan: * c/w current tx and plan * Added risperdal 0.5 mg HS for disorganization on 09/14/18 * No new weekend lab results thus far * Vitals reviewed and noted below: Selected Entries 09/13/18 09/13/18 07:10 16:15 Temperature 97.9 F Pulse Rate 77 79 Respiratory 20 Rate Blood Pressure 117/72 114/71 Estimated Date of D/C: 09/18/18
[2018-09-15] MEDS: Multivitamin With Minerals Tab PO SCH (08:41)
[2018-09-15] MEDS: Divalproex 250 mg DR (BID formulation) PO SCH ×2 (08:41→15:42)
--- NOTE | 2018-09-15 09:15 | PCM.PYCHPN ---
Psychiatric Progress Note - Psychiatric Progress Note Patient seen today, length of contact: 25 min Problems Identified/Issues Discussed: I reviewed recent notes and patient was interviewed at bedside again. He remains superficially cooperative but minimally engaged with questioning. Patient is minimally verbal and responses are brief. Patient appears preoccupied and doesn't even turn his head on the bed to respond to me. Presently patient denies any new concerns including new discomfort or pain. Reports he is sleeping well. He denies experiencing hallucinations however staff note that patient still appears disorganized. He was observed crying by himself on Sunday and told staff "I'm upset about a lot of things". It is still difficult for patient to trust and share. Overall he has been calm and keeping a low profile. He keeps to himself and doesn't participate in groups or activities. Diagnostic Results: Rule out bipolar disorder as per history Pharyngeal disorder Rule out opioid withdrawals Cocaine abuse Rule out substance-induced mood disorder Medication Change: Yes (Increased risperdal to 1 mg HS ) Medical Record Reviewed: Yes Mental Status Examination - Cognitive Function Orientation: Person, Place, Situation Memory: Impaired Attention: Poor Concentration: Poor Association: Loose Fund of Knowledge: Poor - Mood Mood: Depressed - Affect Affect: Flat - Speech Speech: Soft - Formal Thought Process Formal Thought Process: Paranoia, Loosening of associations, Other ("My thoughts are not right") - Suicidal Ideation Suicidal Ideation: No - Homicidal Ideation Homicidal Ideation: No Goal/Treatment Plan - Goal/Treatment Plan Need for Continued Stay: Remain at risks for inpatient hospitalization, Severe depression anxiety, Discharge may exacerbated symptoms, Severe functional impairment Progress Toward Problem(s) and Goals/Treatment Plan: * c/w current tx and plan * Increased risperdal to 1 mg HS for disorganization & negative symptoms on 09/15/18 * No new weekend lab results * Vitals reviewed and noted below: 09/14/18 09/14/18 09/15/18 07:09 16:00 05:23 Temperature 98.4 F Pulse Rate 76 102 H 116 H Respiratory 20 Rate Blood Pressure 114/71 109/66 147/90 Estimated Date of D/C: 09/18/18
[2018-09-16] MEDS ORDERED: Benzocaine/Menthol (Cepacol) Lozenge MT PRN (10:56)
[2018-09-16] MEDS: Divalproex 250 mg DR (BID formulation) PO SCH ×2 (11:03→17:03)
[2018-09-16] MEDS: Multivitamin With Minerals Tab PO SCH (11:04)
--- NOTE | 2018-09-16 11:51 | CP.PCM.PN ---
<Umang Kwan - Last Filed: 09/16/18 11:48> Subjective - Date & Time of Evaluation Date of Evaluation: 09/16/18 Time of Evaluation: 11:48 - Subjective Subjective: Patient seen and examined at bedside. Patient states he has had cough and congestion for the last 5 days with no improvement. Patient has not taken any medications for his symptoms. Denies chest pain, shortness of breath, nausea, vomiting, diarrhea, fever, chills, myalgias. Objective - Vital Signs/Intake and Output Vital Signs (last 24 hours): Temp Pulse Resp BP Pulse Ox 98 F 76 18 114/76 96 09/16/18 07:00 09/16/18 11:02 09/16/18 07:00 09/16/18 11:02 09/11/18 22:10 - Medications Medications: Current Medications Acetaminophen (Tylenol 325mg Tab) 650 mg PO Q6H PRN PRN Reason: Pain, moderate (4-7) Last Admin: 09/11/18 22:19 Dose: 650 mg Al Hydrox/Mg Hydrox/Simethicone (Maalox Plus 30 Ml) 30 ml PO DAILY PRN PRN Reason: Upset Stomach Albuterol (Ventolin Hfa 90 Mcg/Actuation (8 G)) 2 puff IH [id number] PRN PRN Reason: Shortness of Breath Amlodipine Besylate (Norvasc) 5 mg PO DAILY [facility] Last Admin: 09/16/18 11:02 Dose: 5 mg Ascorbic Acid (Vitamin C 500 Mg Tab) 500 mg PO DAILY [facility] Last Admin: 09/16/18 11:05 Dose: 500 mg Benzocaine/Menthol (Cepacol Sore Throat) 1 chas MT Q2H PRN PRN Reason: Sore Throat Clonidine HCl (Catapres) 0.1 mg PO Q12 PRN PRN Reason: withdrawal Last Admin: 09/15/18 18:11 Dose: 0.1 mg Divalproex Sodium (Depakote Dr (*Bid*)) 250 mg PO BID [facility]; Protocol Last Admin: 09/16/18 11:03 Dose: 250 mg Lorazepam (Ativan) 2 mg IM Q6H PRN PRN Reason: Agitation Lorazepam (Ativan) 2 mg PO Q6 PRN; Protocol PRN Reason: alcohol withdrawals Last Admin: 09/15/18 15:58 Dose: 2 mg Magnesium Hydroxide (Milk Of Magnesia) 30 ml PO DAILY PRN PRN Reason: Constipation Mirtazapine (Remeron) 15 mg PO HS [facility] Last Admin: 09/15/18 21:50 Dose: 15 mg Multivitamins/Minerals (Therapeutic-M Tab) 1 tab PO DAILY [facility] Last Admin: 09/16/18 11:04 Dose: 1 tab Nicotine (Nicoderm Cq) 1 patch TD DAILY [facility] Last Admin: 09/16/18 11:02 Dose: 1 patch Ondansetron HCl (Zofran Odt) 4 mg PO Q8H PRN PRN Reason: Nausea/Vomiting Risperidone (Risperdal Tab) 1 mg PO HS [facility]; Protocol Last Admin: 09/15/18 21:49 Dose: 1 mg Tramadol HCl (Ultram) 50 mg PO TID PRN PRN Reason: Pain, severe 12/11 Last Admin: 09/15/18 18:11 Dose: 50 mg Zaleplon (Sonata) 5 mg PO HS PRN PRN Reason: Insomnia Last Admin: 09/11/18 22:19 Dose: 5 mg Ziprasidone (Geodon Cap) 20 mg PO Q6H PRN; Protocol PRN Reason: psychosis/agitation Last Admin: 09/15/18 15:58 Dose: 20 mg Ziprasidone (Geodon Inj) 20 mg IM Q6H PRN; Protocol PRN Reason: severe agitaiton/psychosis - Labs Labs: 09/11/18 16:35 09/11/18 16:35 - Constitutional Appears: Non-toxic, No Acute Distress - Head Exam Head Exam: ATRAUMATIC, NORMAL INSPECTION, NORMOCEPHALIC - ENT Exam ENT Exam: Mucous Membranes Moist Additional comments: Erythema noted in posterior pharynx - Neck Exam Neck Exam: absent: Lymphadenopathy - Respiratory Exam Respiratory Exam: Decreased Breath Sounds, NORMAL BREATHING PATTERN. absent: Rales, Rhonchi, Wheezes - Cardiovascular Exam Cardiovascular Exam: RRR, +S1, +S2. absent: Gallop, Irregular Rhythm, Murmur - GI/Abdominal Exam GI & Abdominal Exam: Soft, Normal Bowel Sounds. absent: Tenderness - Extremities Exam Extremities Exam: Normal Inspection. absent: Pedal Edema, Tenderness - Neurological Exam Neurological Exam: Alert, Awake, CN II-XII Intact, Oriented x3 - Psychiatric Exam Psychiatric exam: Normal Affect, Normal Mood - Skin Skin Exam: Intact, Normal Color, Warm Assessment and Plan - Assessment and Plan (Free Text) Plan: 57 year old male with medical history of asthma, HTN, and bipolar disorder who initially presented for not feeling himself and was subsequently admitted to psychiatry floor. Patient reevaluated today for worsening cough and congestion, found to have bronchitis. Bronchitis: Azithromycin 500 mg today Continue Azithromycin 250 mg daily x 4 days starting tomorrow Guaifenesin and Cepacol added HTN: Continue Norvasc Continue Catapres Asthma Continue Ventolin Bipolar Disorder: Management as per psychiatry [place], PGY-3 <Kike Jackson - Last Filed: 09/16/18 16:02> Objective - Vital Signs/Intake and Output Vital Signs (last 24 hours): Temp Pulse Resp BP Pulse Ox 98 F 76 18 114/76 96 09/16/18 07:00 09/16/18 11:02 09/16/18 07:00 09/16/18 11:02 09/11/18 22:10 - Medications Medications: Current Medications Acetaminophen (Tylenol 325mg Tab) 650 mg PO Q6H PRN PRN Reason: Pain, moderate (4-7) Last Admin: 09/11/18 22:19 Dose: 650 mg Al Hydrox/Mg Hydrox/Simethicone (Maalox Plus 30 Ml) 30 ml PO DAILY PRN PRN Reason: Upset Stomach Albuterol (Ventolin Hfa 90 Mcg/Actuation (8 G)) 2 puff IH [id number] PRN PRN Reason: Shortness of Breath Amlodipine Besylate (Norvasc) 5 mg PO DAILY [facility] Last Admin: 09/16/18 11:02 Dose: 5 mg Ascorbic Acid (Vitamin C 500 Mg Tab) 500 mg PO DAILY [facility] Last Admin: 09/16/18 11:05 Dose: 500 mg Azithromycin (Zithromax) 250 mg PO DAILY [facility]; Protocol Stop: 09/20/18 23:00 Benzocaine/Menthol (Cepacol Sore Throat) 1 chas MT Q2H PRN PRN Reason: Sore Throat Clonidine HCl (Catapres) 0.1 mg PO Q12 PRN PRN Reason: withdrawal Last Admin: 09/15/18 18:11 Dose: 0.1 mg Divalproex Sodium (Depakote Dr (*Bid*)) 250 mg PO BID [facility]; Protocol Last Admin: 09/16/18 11:03 Dose: 250 mg Guaifenesin (Robitussin) 100 mg PO Q4H PRN PRN Reason: Cough Last Admin: 09/16/18 12:23 Dose: 100 mg Lorazepam (Ativan) 2 mg IM Q6H PRN PRN Reason: Agitation Lorazepam (Ativan) 2 mg PO Q6 PRN; Protocol PRN Reason: alcohol withdrawals Last Admin: 09/15/18 15:58 Dose: 2 mg Magnesium Hydroxide (Milk Of Magnesia) 30 ml PO DAILY PRN PRN Reason: Constipation Mirtazapine (Remeron) 15 mg PO HS [facility] Last Admin: 09/15/18 21:50 Dose: 15 mg Multivitamins/Minerals (Therapeutic-M Tab) 1 tab PO DAILY [facility] Last Admin: 09/16/18 11:04 Dose: 1 tab Nicotine (Nicoderm Cq) 1 patch TD DAILY [facility] Last Admin: 09/16/18 11:02 Dose: 1 patch Ondansetron HCl (Zofran Odt) 4 mg PO Q8H PRN PRN Reason: Nausea/Vomiting Risperidone (Risperdal Tab) 1 mg PO HS [facility]; Protocol Last Admin: 09/15/18 21:49 Dose: 1 mg Sodium Chloride ([place] Nasal [place]) 0 ml NS BID [facility] Tramadol HCl (Ultram) 50 mg PO TID PRN PRN Reason: Pain, severe 710 Last Admin: 09/15/18 18:11 Dose: 50 mg Zaleplon (Sonata) 5 mg PO HS PRN PRN Reason: Insomnia Last Admin: 09/11/18 22:19 Dose: 5 mg Ziprasidone (Geodon Cap) 20 mg PO Q6H PRN; Protocol PRN Reason: psychosis/agitation Last Admin: 09/15/18 15:58 Dose: 20 mg Ziprasidone (Geodon Inj) 20 mg IM Q6H PRN; Protocol PRN Reason: severe agitaiton/psychosis - Labs Labs: 09/11/18 16:35 09/11/18 16:35 Attending/Attestation - Attestation I have personally seen and examined this patient.: Yes I have fully participated in the care of the patient.: Yes I have reviewed all pertinent clinical information, including history, physical exam and plan: Yes Notes (Text): 09/16/18 15:56 Attending note; Patient seen and examined in psych floor. Patient is alert and awake. Complaining of nasal congestion. Denies any fevers, chills. Denies any urinary, bowel symptoms. Denies any nausea, vomiting. Tolerating diet well 1. Patient is a 57-year-old male with a history of asthma is admitted with URI symptoms. Currently afebrile and nontoxic. Recent chest x-ray is negative for infiltrate Continue albuterol nebulizer. Started on p.o. azithromycin saline Nasal spray ordered. cepacol lozenges and Robitussin ordered. 2. Hypertension; continue Norvasc . 3. Active smoking; smoking cessation is strongly advised . Currently on NicoDerm patch . 4. Heroin abuse; drug abuse cessation is strongly advised. 5. Anxiety depression; continue psych medications per psychiatrist. Patient needs close outpatient Follow-up with PMD upon discharge.
[2018-09-16] MEDS ORDERED: guaiFENesin 100 mg/5 ml Syrup UD PO PRN (12:00)
--- NOTE | 2018-09-16 12:22 | PCM.PYCHPN ---
Psychiatric Progress Note - Psychiatric Progress Note Patient seen today, length of contact: 30min Patient Chief Complaint: "I dong feel good, I have a chest congestion..." Problems Identified/Issues Discussed: Symptoms: Current presentation, treatment plan, discharge plan. Medical Problems: See HPI Diagnostic Results: 09/11/18 16:35 09/11/18 16:35 Lab Results 09/12/18 07:25: RPR Nonreactive 09/12/18 07:20: TSH 3rd Generation 1.69 09/12/18 07:20: Fasting Glucose 92, Triglycerides 97, Cholesterol 180, LDL Cholesterol Direct 97, HDL Cholesterol 40 09/11/18 18:30: Urine Opiates Screen Negative, Urine Methadone Screen Negative, Ur Barbiturates Screen Negative, Ur Phencyclidine Scrn Negative, Ur Amphetamines Screen Negative, U Benzodiazepines Scrn Negative, U Oth Cocaine Metabols Negative, U Cannabinoids Screen Negative 09/11/18 18:30: Urine Color Yellow, Urine Appearance Clear, Urine pH 7.0, Ur Specific [place] <= 1.005, Urine Protein Negative, Urine Glucose (UA) Negative, Urine Ketones Negative, Urine Blood Negative, Urine Nitrate Negative, Urine Bilirubin Negative, Urine Urobilinogen 0.2, Ur Leukocyte Esterase Negative 09/11/18 16:35: Alcohol, Quantitative < 10 09/11/18 16:35: Sodium 137, Potassium 3.8, Chloride 103, Carbon Dioxide 26, Anion Gap 11, BUN 12, Creatinine 1.4, Est GFR ( Amer) > 60, Est GFR (Non- Af Amer) 53, Random Glucose 91, Calcium 9.1, Total Bilirubin 0.1 L, AST 22, ALT 15, Alkaline Phosphatase 94, Total Protein 7.3, Albumin 3.9, Globulin 3.5, Albumin/Globulin Ratio 1.1 09/11/18 16:35: WBC 4.0 L, RBC 4.09, Hgb 11.3 L, Hct 34.7 L, MCV 84.8, MCH 27.6, MCHC 32.6, RDW 15.1 H, Plt Count 310, MPV 9.8, Neut % (Auto) 27.5 L, Lymph % (Auto) 58.6 H, Crisp % (Auto) 8.4 H, Eos % (Auto) 4.5, Baso % (Auto) 1.0, Lymph # (Auto) 2.4, Crisp # (Auto) 0.3, Eos # (Auto) 0.2, Baso # (Auto) 0.04, Absolute Neuts (auto) 1.11 L Vital Signs Temp Pulse Pulse Resp BP Pulse Ox 09/13/18 09:52 77 117/72 09/13/18 07:10 97.9 F 77 20 117/72 09/12/18 17:44 74 129/80 09/12/18 16:00 74 129/80 09/12/18 07:26 98.1 F 80 20 118/72 09/11/18 23:19 92 H 18 09/11/18 22:20 92 H 150/96 H 09/11/18 22:10 97.8 F 92 H 18 150/92 H 96 09/11/18 21:14 80 18 131/72 100 09/11/18 20:33 98.7 F 80 18 130/79 100 09/11/18 16:47 98.7 F 82 18 136/88 100 Temp Pulse Resp BP Pulse Ox 98 F 76 18 114/76 96 09/16/18 07:00 09/16/18 11:02 09/16/18 07:00 09/16/18 11:02 09/11/18 22:10 DSM 5 Symptoms Update: shortly pt is 57 year old male, not known previous psych h/o, self reported h/o bipolar disorder, denied previous psych admissions, denied h/o suicidal attempts, pt currently homeless, was brought in to the hospital for evaluation of depression, inability to function and "thoughts are not right.", passive wish to be , on top of that pt was using drugs, no social support, pt required further evaluation and stabilization and med adjustment. pt was seen and examined at the treatment team today, patient said that he does not feel well because of "chest congestion, I fill chills and sore throat", pt said for the past week he was feeling this way and "I am not feeling any better, may I see a medical doctor?", this junior underwriter started vit C, cepacol as well, me dical f/u will be called. pt reported minimal improvement with his symptoms. transient feeling of hopelessness, pt sill wants to be referred to inpatient rehab. As per staff patient is not participating in unit activities, self isolating, but no aggression or agitation. So far patient tolerates medications well, no side effects observed or reported, Cammie 0, no EPS. No withdrawal symptoms observed or reported. DSM 5 Rule out bipolar disorder as per history Rule out substance-induced mood disorder Polysubstance abuse Medication Change: Yes (depakote increased) Medical Record Reviewed: Yes Consults ordered or reviewed: Medical consult appreciated Mental Status Examination - Cognitive Function Orientation: Person, Place, Situation Memory: Impaired Attention: Poor Concentration: Poor Association: Loose Fund of Knowledge: Poor - Mood Mood: Depressed - Affect Affect: Flat - Speech Speech: Soft - Formal Thought Process Formal Thought Process: Paranoia (some improvement), Loosening of associations, Other ("My thoughts are not right") - Suicidal Ideation Suicidal Ideation: No - Homicidal Ideation Homicidal Ideation: No Goal/Treatment Plan - Goal/Treatment Plan Need for Continued Stay: Remain at risks for inpatient hospitalization, Severe depression anxiety, Discharge may exacerbated symptoms, Severe functional imp airment Progress Toward Problem(s) and Goals/Treatment Plan: Milieu/structure/supportive therapy SW consultation for discharge plan and social issues, pt is willing to be referred to rehab depakote 500 mg bid for mood stabilization Remeron 15 mg at the nighttime for sleep as well as depression Multivitamins daily Symptomatic treatment for possible opioid withdrawals Medical consult was: family involvement Follow up on labs Will monitor closely Pt was educated about risk/benefits and alternatives of medications, coping strategies (safety plan, suicide prevention), relapse prevention, importance of follow up with psychiatrist and therapist, stay away from drugs/alcohol/smoking Estimated Date of D/C: 09/18/18
[2018-09-16] MEDS: Alum-Mag Hydrox-Simethicone Susp (30 mL) PO PRN (15:00)
[2018-09-17] MEDS: Divalproex 250 mg DR (BID formulation) PO SCH (10:39)
--- NOTE | 2018-09-17 12:05 | CP.PCM.PN ---
<Umang Kwan - Last Filed: 09/17/18 12:00> Subjective - Date & Time of Evaluation Date of Evaluation: 09/17/18 Time of Evaluation: 10:00 - Subjective Subjective: Patient seen and examined at bedside. Patient states he has had episodes of not being able to make it to the bathroom to urinate. It was been happening over the last several months. Denies chest pain, shortness of breath, nausea, vomiting, diarrhea, fever, chills, dysuria, increased urinary frequency. Objective - Vital Signs/Intake and Output Vital Signs (last 24 hours): Temp Pulse Resp BP Pulse Ox 97.8 F 87 18 116/80 96 09/17/18 07:17 09/17/18 10:38 09/16/18 07:00 09/17/18 10:38 09/11/18 22:10 - Medications Medications: Current Medications Acetaminophen (Tylenol 325mg Tab) 650 mg PO Q6H PRN PRN Reason: Pain, moderate (4-7) Last Admin: 09/11/18 22:19 Dose: 650 mg Al Hydrox/Mg Hydrox/Simethicone (Maalox Plus 30 Ml) 30 ml PO DAILY PRN PRN Reason: Upset Stomach Last Admin: 09/16/18 15:00 Dose: 30 ml Albuterol (Ventolin Hfa 90 Mcg/Actuation (8 G)) 2 puff IH [id number] PRN PRN Reason: Shortness of Breath Amlodipine Besylate (Norvasc) 5 mg PO DAILY [facility] Last Admin: 09/17/18 10:38 Dose: 5 mg Ascorbic Acid (Vitamin C 500 Mg Tab) 500 mg PO DAILY [facility] Last Admin: 09/17/18 10:40 Dose: 500 mg Azithromycin (Zithromax) 250 mg PO DAILY [facility]; Protocol Stop: 09/20/18 23:00 Last Admin: 09/17/18 10:40 Dose: 250 mg Benzocaine/Menthol (Cepacol Sore Throat) 1 chas MT Q2H PRN PRN Reason: Sore Throat Clonidine HCl (Catapres) 0.1 mg PO Q12 PRN PRN Reason: withdrawal Last Admin: 09/15/18 18:11 Dose: 0.1 mg Divalproex Sodium (Depakote Dr (*Bid*)) 250 mg PO BID [facility]; Protocol Last Admin: 09/17/18 10:39 Dose: 250 mg Guaifenesin (Robitussin) 100 mg PO Q4H PRN PRN Reason: Cough Last Admin: 09/16/18 12:23 Dose: 100 mg Lorazepam (Ativan) 2 mg IM Q6H PRN PRN Reason: Agitation Lorazepam (Ativan) 2 mg PO Q6 PRN; Protocol PRN Reason: alcohol withdrawals Last Admin: 09/15/18 15:58 Dose: 2 mg Magnesium Hydroxide (Milk Of Magnesia) 30 ml PO DAILY PRN PRN Reason: Constipation Mirtazapine (Remeron) 15 mg PO HS [facility] Last Admin: 09/16/18 21:13 Dose: 15 mg Multivitamins/Minerals (Therapeutic-M Tab) 1 tab PO DAILY [facility] Last Admin: 09/16/18 11:04 Dose: 1 tab Nicotine (Nicoderm Cq) 1 patch TD DAILY [facility] Last Admin: 09/16/18 11:02 Dose: 1 patch Ondansetron HCl (Zofran Odt) 4 mg PO Q8H PRN PRN Reason: Nausea/Vomiting Risperidone (Risperdal Tab) 1 mg PO HS [facility]; Protocol Last Admin: 09/16/18 21:13 Dose: 1 mg Sodium Chloride ([place] Nasal [place]) 0 ml NS BID [facility] Last Admin: 09/16/18 17:05 Dose: 2 spray Tramadol HCl (Ultram) 50 mg PO TID PRN PRN Reason: Pain, severe 7/10 Last Admin: 09/15/18 18:11 Dose: 50 mg Zaleplon (Sonata) 5 mg PO HS PRN PRN Reason: Insomnia Last Admin: 09/11/18 22:19 Dose: 5 mg Ziprasidone (Geodon Cap) 20 mg PO Q6H PRN; Protocol PRN Reason: psychosis/agitation Last Admin: 09/15/18 15:58 Dose: 20 mg Ziprasidone (Geodon Inj) 20 mg IM Q6H PRN; Protocol PRN Reason: severe agitaiton/psychosis - Labs Labs: 09/11/18 16:35 09/11/18 16:35 - Constitutional Appears: Non-toxic, No Acute Distress, Unkempt - Head Exam Head Exam: ATRAUMATIC, NORMAL INSPECTION, NORMOCEPHALIC - ENT Exam ENT Exam: Mucous Membranes Dry - Respiratory Exam Respiratory Exam: Clear to Ausculation Bilateral, NORMAL BREATHING PATTERN. absent: Rales, Rhonchi, Wheezes - Cardiovascular Exam Cardiovascular Exam: RRR, +S1, +S2. absent: Clicks, Diastolic murmur, Gallop - GI/Abdominal Exam GI & Abdominal Exam: Normal Bowel Sounds. absent: Distended, Guarding, Soft, Tenderness, Rebound - Extremities Exam Extremities Exam: Normal Inspection. absent: Pedal Edema, Tenderness - Neurological Exam Neurological Exam: Alert, Awake, CN II-XII Intact, Oriented x3 - Psychiatric Exam Psychiatric exam: Depressed, Flat Affect - Skin Skin Exam: Dry, Intact, Warm Assessment and Plan - Assessment and Plan (Free Text) Plan: 57 year old male with medical history of asthma, HTN, bipolar disorder, previous PEG tube placement (unknown reason) s/p removal, and bronchitis presents with urinary incontinence. Patient will have UA and bladder scan ordered. We will also review medications for causes of incontinence. Patient will continue management on the psychiatric floor. Urinary incontinence: UA Bladder scan Avoid oversedation, which may contribute to urinary incontinence Will continue to follow Bronchitis: Continue Azithromycin 250 mg daily x 4 days Guaifenesin and Cepacol added HTN: Continue Norvasc Continue Catapres Asthma Continue Ventolin Bipolar Disorder: Management as per psychiatry Substance abuse: Counseled on cessation, strongly advised Tobacco use: Counseled on cessation, strongly advised Continue Nicoderm patch [place], PGY-3 <Kike Jackson - Last Filed: 09/18/18 13:53> Objective - Vital Signs/Intake and Output Vital Signs (last 24 hours): Temp Pulse Resp BP Pulse Ox 97.5 F L 94 H 20 110/70 96 09/18/18 07:10 09/18/18 08:59 09/18/18 07:10 09/18/18 08:59 09/11/18 22:10 - Medications Medications: Current Medications Acetaminophen (Tylenol 325mg Tab) 650 mg PO Q6H PRN PRN Reason: Pain, moderate (4-7) Last Admin: 09/11/18 22:19 Dose: 650 mg Al Hydrox/Mg Hydrox/Simethicone (Maalox Plus 30 Ml) 30 ml PO DAILY PRN PRN Reason: Upset Stomach Last Admin: 09/17/18 20:00 Dose: 30 ml Albuterol (Ventolin Hfa 90 Mcg/Actuation (8 G)) 2 puff IH [id number] PRN PRN Reason: Shortness of Breath Amlodipine Besylate (Norvasc) 5 mg PO DAILY [facility] Last Admin: 09/18/18 08:59 Dose: 5 mg Ascorbic Acid (Vitamin C 500 Mg Tab) 500 mg PO DAILY [facility] Last Admin: 09/18/18 08:58 Dose: 500 mg Azithromycin (Zithromax) 250 mg PO DAILY [facility]; Protocol Stop: 09/20/18 23:00 Last Admin: 09/18/18 08:59 Dose: 250 mg Benzocaine/Menthol (Cepacol Sore Throat) 1 chas MT Q2H PRN PRN Reason: Sore Throat Divalproex Sodium (Depakote Dr(*Bid*)) 500 mg PO BID [facility]; Protocol Last Admin: 09/18/18 08:59 Dose: 500 mg Guaifenesin (Robitussin) 100 mg PO Q4H PRN PRN Reason: Cough Last Admin: 09/16/18 12:23 Dose: 100 mg Lorazepam (Ativan) 2 mg IM Q6H PRN PRN Reason: Agitation Magnesium Hydroxide (Milk Of Magnesia) 30 ml PO DAILY PRN PRN Reason: Constipation Mirtazapine (Remeron) 15 mg PO HS [facility] Last Admin: 09/17/18 21:26 Dose: 15 mg Multivitamins/Minerals (Therapeutic-M Tab) 1 tab PO DAILY [facility] Last Admin: 09/18/18 08:58 Dose: 1 tab Nicotine (Nicoderm Cq) 1 patch TD DAILY [facility] Last Admin: 09/18/18 08:59 Dose: 1 patch Ondansetron HCl (Zofran Odt) 4 mg PO Q8H PRN PRN Reason: Nausea/Vomiting Risperidone (Risperdal Tab) 1 mg PO HS [facility]; Protocol Last Admin: 09/17/18 21:26 Dose: 1 mg Sodium Chloride ([place] Nasal [place]) 0 ml NS BID [facility] Last Admin: 09/18/18 09:00 Dose: 2 spray Zaleplon (Sonata) 5 mg PO HS PRN PRN Reason: Insomnia Last Admin: 09/18/18 00:32 Dose: 5 mg Ziprasidone (Geodon Cap) 20 mg PO Q6H PRN; Protocol PRN Reason: psychosis/agitation Last Admin: 09/15/18 15:58 Dose: 20 mg Ziprasidone (Geodon Inj) 20 mg IM Q6H PRN; Protocol PRN Reason: severe agitaiton/psychosis - Labs Labs: 09/11/18 16:35 09/11/18 16:35 Attending/Attestation - Attestation I have personally seen and examined this patient.: Yes I have fully participated in the care of the patient.: Yes I have reviewed all pertinent clinical information, including history, physical exam and plan: Yes Notes (Text): 09/18/18 13:51 Attending note; Patient seen and examined with resident. Patient is alert and awake. Denies any fevers, chills. Denies any urinary, bowel symptoms. Denies any nausea, vomiting. Tolerating diet well Patient is having urinary incontinence on and off as per nursing staff. 1. Patient is a 57-year-old male with a history of asthma is admitted with URI symptoms. Currently afebrile and nontoxic. Recent chest x-ray is negative for infiltrate Continue albuterol nebulizer. Started on p.o. azithromycin saline Nasal spray ordered. cepacol lozenges and Robitussin ordered. 2. Hypertension; continue Norvasc . 3. Active smoking; smoking cessation is strongly advised . Currently on NicoDerm patch . 4. Heroin abuse; drug abuse cessation is strongly advised. 5. Anxiety depression; continue psych medications per psychiatrist. 6. Urinary incontinence; UA is normal. No bladder distention noted. We will follow-up postvoid residual. PSA ordered. Most likely secondary to psychiatric disorder and medication induced. Case discussed with psychiatrist in detail to reduce sedatives on antipsychotic medication. Patient is currently ambulating. No neurological deficit noted. Patient needs close outpatient Follow-up with PMD upon discharge.
[2018-09-17] MEDS: Multivitamin With Minerals Tab PO SCH (13:43)
[2018-09-17 14:15] LABS: URINE APPEARANCE CLEAR (CLEAR); URINE BILIRUBIN NEGATIVE (NEGATIVE); URINE BLOOD NEGATIVE (NEGATIVE); URINE COLOR YELLOW (YELLOW); URINE GLUCOSE (UA) NEGATIVE (NEGATIVE); URINE LEUKOCYTE ESTERASE NEGATIVE Leu/uL (NEGATIVE); URINE PROTEIN NEGATIVE mg/dL (<30 mg/dL); URINE UROBILINOGEN 0.2 E.U./dL (<1 E.U./dL)
--- NOTE | 2018-09-17 15:08 | PCM.PYCHPN ---
Psychiatric Progress Note - Psychiatric Progress Note Patient seen today, length of contact: 30min Patient Chief Complaint: "I feel a little better" Problems Identified/Issues Discussed: Symptoms: Current presentation, treatment plan, discharge plan, medical issues. Medical Problems: See HPI Diagnostic Results: 09/11/18 16:35 09/11/18 16:35 Lab Results 09/12/18 07:25: RPR Nonreactive 09/12/18 07:20: TSH 3rd Generation 1.69 09/12/18 07:20: Fasting Glucose 92, Triglycerides 97, Cholesterol 180, LDL Cholesterol Direct 97, HDL Cholesterol 40 09/11/18 18:30: Urine Opiates Screen Negative, Urine Methadone Screen Negative, Ur Barbiturates Screen Negative, Ur Phencyclidine Scrn Negative, Ur Amphetamines Screen Negative, U Benzodiazepines Scrn Negative, U Oth Cocaine Metabols Negative, U Cannabinoids Screen Negative 09/11/18 18:30: Urine Color Yellow, Urine Appearance Clear, Urine pH 7.0, Ur Specific [place] <= 1.005, Urine Protein Negative, Urine Glucose (UA) Negative, Urine Ketones Negative, Urine Blood Negative, Urine Nitrate Negative, Urine Bilirubin Negative, Urine Urobilinogen 0.2, Ur Leukocyte Esterase Negative 09/11/18 16:35: Alcohol, Quantitative < 10 09/11/18 16:35: Sodium 137, Potassium 3.8, Chloride 103, Carbon Dioxide 26, Anion Gap 11, BUN 12, Creatinine 1.4, Est GFR ( Amer) > 60, Est GFR (Non- Af Amer) 53, Random Glucose 91, Calcium 9.1, Total Bilirubin 0.1 L, AST 22, ALT 15, Alkaline Phosphatase 94, Total Protein 7.3, Albumin 3.9, Globulin 3.5, Albumin/Globulin Ratio 1.1 09/11/18 16:35: WBC 4.0 L, RBC 4.09, Hgb 11.3 L, Hct 34.7 L, MCV 84.8, MCH 27.6, MCHC 32.6, RDW 15.1 H, Plt Count 310, MPV 9.8, Neut % (Auto) 27.5 L, Lymph % (Auto) 58.6 H, [place] % (Auto) 8.4 H, Eos % (Auto) 4.5, Baso % (Auto) 1.0, Lymph # (Auto) 2.4, [place] # (Auto) 0.3, Eos # (Auto) 0.2, Baso # (Auto) 0.04, Absolute Neuts (auto) 1.11 L Vital Signs Temp Pulse Pulse Resp BP Pulse Ox 09/13/18 09:52 77 117/72 09/13/18 07:10 97.9 F 77 20 117/72 09/12/18 17:44 74 129/80 09/12/18 16:00 74 129/80 09/12/18 07:26 98.1 F 80 20 118/72 09/11/18 23:19 92 H 18 09/11/18 22:20 92 H 150/96 H 09/11/18 22:10 97.8 F 92 H 18 150/92 H 96 09/11/18 21:14 80 18 131/72 100 09/11/18 20:33 98.7 F 80 18 130/79 100 09/11/18 16:47 98.7 F 82 18 136/88 100 Temp Pulse Resp BP Pulse Ox 98 F 76 18 114/76 96 09/16/18 07:00 09/16/18 11:02 09/16/18 07:00 09/16/18 11:02 09/11/18 22:10 DSM 5 Symptoms Update: shortly pt is 57 year old male, not known previous psych h/o, self reported h/o bipolar disorder, denied previous psych admissions, denied h/o suicidal attempts, pt currently homeless, was brought in to the hospital for evaluation of depression, inability to function and "thoughts are not right.", passive wish to be , on top of that pt was using drugs, no social support, pt required further evaluation and stabilization and med adjustment. pt was seen and examined today in his room with Medical Student. Patient presented to be sleepy, with psychomotor retardation. pt reported to feel "little better...", then just smiled. discussed with medical team, as per RN report pt has urinary incontinence, pt also c/o chest congestion, pt was started on abx. 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 Pt reported minimal improvement with his symptoms. transient feeling of hopelessness, pt sill wants to be referred to inpatient rehab. As per staff patient is not participating in unit activities, self isolating, but no aggression or agitation. So far patient tolerates medications well, no side effects observed or reported, [place] 0, no EPS. No withdrawal symptoms observed or reported. DSM 5 Rule out bipolar disorder as per history Rule out substance-induced mood disorder Polysubstance abuse Medication Change: Yes (depakote increased) Medical Record Reviewed: Yes Mental Status Examination - Cognitive Function Orientation: Person, Place, Situation Memory: Impaired Attention: Poor Concentration: Poor Association: Loose Fund of Knowledge: Poor - Mood Mood: Depressed - Affect Affect: Flat - Speech Speech: Soft - Formal Thought Process Formal Thought Process: Paranoia (some improvement), Loosening of associations, Other ("My thoughts are not right") - Suicidal Ideation Suicidal Ideation: No - Homicidal Ideation Homicidal Ideation: No Goal/Treatment Plan - Goal/Treatment Plan Need for Continued Stay: Remain at risks for inpatient hospitalization, Severe depression anxiety, Discharge may exacerbated symptoms, Severe functional impairment Progress Toward Problem(s) and Goals/Treatment Plan: Milieu/structure/supportive therapy SW consultation for discharge plan and social issues, pt is willing to be referred to rehab depakote 500 mg bid for mood stabilization Remeron 15 mg at the nighttime for sleep as well as depression Prescribed on 1 mg in the nighttime was started over the weekend Multivitamins daily Symptomatic treatment for possible opioid withdrawals Medical consult appreciated for urinary incontinence and URI family involvement Follow up on labs Will monitor closely Pt was educated about risk/benefits and alternatives of medications, coping strategies (safety plan, suicide prevention), relapse prevention, importance of follow up with psychiatrist and therapist, stay away from drugs/alcohol/smoking Estimated Date of D/C: 09/20/18
[2018-09-17] MEDS: Divalproex 500 mg DR(BID formulation) PO SCH (17:15)
[2018-09-17] MEDS: Alum-Mag Hydrox-Simethicone Susp (30 mL) PO PRN (20:00)
[2018-09-18 07:11] VITALS: RESP 20
[2018-09-18] MEDS: Multivitamin With Minerals Tab PO SCH (08:58)
[2018-09-18] MEDS: Divalproex 500 mg DR(BID formulation) PO SCH ×2 (08:59→17:30)
--- NOTE | 2018-09-18 13:39 | CP.PCM.PN ---
<Ariel Marrero - Last Filed: 09/18/18 13:46> Subjective - Date & Time of Evaluation Date of Evaluation: 09/18/18 Time of Evaluation: 11:00 - Subjective Subjective: Ariel Marrero, PGY1- Medicine Progress Note: Pt was seen and examined this AM at bedside. Pt states that he does not have any issues with urination or defecation. Overnight per nursing the pt has also become incontinent of feces. Pt denies any new trauma and denies any saddle anesthesia or focal neurologic defecits. Pt also denies any weakness anywhere and is able to ambulate. Per nurse eval pt had 150cc post void residual on US. Objective - Vital Signs/Intake and Output Vital Signs (last 24 hours): Temp Pulse Resp BP Pulse Ox 97.5 F L 94 H 20 110/70 96 09/18/18 07:10 09/18/18 08:59 09/18/18 07:10 09/18/18 08:59 09/11/18 22:10 - Medications Medications: Current Medications Acetaminophen (Tylenol 325mg Tab) 650 mg PO Q6H PRN PRN Reason: Pain, moderate (4-7) Last Admin: 09/11/18 22:19 Dose: 650 mg Al Hydrox/Mg Hydrox/Simethicone (Maalox Plus 30 Ml) 30 ml PO DAILY PRN PRN Reason: Upset Stomach Last Admin: 09/17/18 20:00 Dose: 30 ml Albuterol (Ventolin Hfa 90 Mcg/Actuation (8 G)) 2 puff IH [id number] PRN PRN Reason: Shortness of Breath Amlodipine Besylate (Norvasc) 5 mg PO DAILY [facility] Last Admin: 09/18/18 08:59 Dose: 5 mg Ascorbic Acid (Vitamin C 500 Mg Tab) 500 mg PO DAILY [facility] Last Admin: 09/18/18 08:58 Dose: 500 mg Azithromycin (Zithromax) 250 mg PO DAILY [facility]; Protocol Stop: 09/20/18 23:00 Last Admin: 09/18/18 08:59 Dose: 250 mg Benzocaine/Menthol (Cepacol Sore Throat) 1 chas MT Q2H PRN PRN Reason: Sore Throat Divalproex Sodium (Depakote Dr(*Bid*)) 500 mg PO BID [facility]; Protocol Last Admin: 09/18/18 08:59 Dose: 500 mg Guaifenesin (Robitussin) 100 mg PO Q4H PRN PRN Reason: Cough Last Admin: 09/16/18 12:23 Dose: 100 mg Lorazepam (Ativan) 2 mg IM Q6H PRN PRN Reason: Agitation Magnesium Hydroxide (Milk Of Magnesia) 30 ml PO DAILY PRN PRN Reason: Constipation Mirtazapine (Remeron) 15 mg PO HS [facility] Last Admin: 09/17/18 21:26 Dose: 15 mg Multivitamins/Minerals (Therapeutic-M Tab) 1 tab PO DAILY [facility] Last Admin: 09/18/18 08:58 Dose: 1 tab Nicotine (Nicoderm Cq) 1 patch TD DAILY [facility] Last Admin: 09/18/18 08:59 Dose: 1 patch Ondansetron HCl (Zofran Odt) 4 mg PO Q8H PRN PRN Reason: Nausea/Vomiting Risperidone (Risperdal Tab) 1 mg PO HS [facility]; Protocol Last Admin: 09/17/18 21:26 Dose: 1 mg Sodium Chloride ([place] Nasal [place]) 0 ml NS BID [facility] Last Admin: 09/18/18 09:00 Dose: 2 spray Zaleplon (Sonata) 5 mg PO HS PRN PRN Reason: Insomnia Last Admin: 09/18/18 00:32 Dose: 5 mg Ziprasidone (Geodon Cap) 20 mg PO Q6H PRN; Protocol PRN Reason: psychosis/agitation Last Admin: 09/15/18 15:58 Dose: 20 mg Ziprasidone (Geodon Inj) 20 mg IM Q6H PRN; Protocol PRN Reason: severe agitaiton/psychosis - Labs Labs: 09/11/18 16:35 09/11/18 16:35 - Constitutional Appears: Non-toxic, No Acute Distress, Unkempt - Head Exam Head Exam: ATRAUMATIC, NORMAL INSPECTION, NORMOCEPHALIC - ENT Exam ENT Exam: Mucous Membranes Dry - Respiratory Exam Respiratory Exam: Clear to Ausculation Bilateral, NORMAL BREATHING PATTERN. absent: Rales, Rhonchi, Wheezes - Cardiovascular Exam Cardiovascular Exam: RRR, +S1, +S2. absent: Clicks, Diastolic murmur, Gallop - GI/Abdominal Exam GI & Abdominal Exam: Normal Bowel Sounds. absent: Distended, Guarding, Soft, Tenderness, Rebound - Extremities Exam Extremities Exam: Normal Inspection. absent: Pedal Edema, Tenderness - Neurological Exam Neurological Exam: Alert, Awake, CN II-XII Intact, Oriented x3 - Psychiatric Exam Psychiatric exam: Depressed, Flat Affect - Skin Skin Exam: Dry, Intact, Warm Assessment and Plan - Assessment and Plan (Free Text) Assessment: 57 year old male with medical history of asthma, HTN, bipolar disorder, previous PEG tube placement (unknown reason) s/p removal, and bronchitis presents with urinary incontinence. Patient will have UA and bladder scan ordered. We will also review medications for causes of incontinence. Patient will continue management on the psychiatric floor. Plan: Urinary incontinence: - UA (-) - Post void residual Bladder scan - 150cc - Avoid oversedation, which may contribute to urinary incontinence Fecal Incontinence: - Pt has no neurologic deficits - Pt noted no weakness or pain upon palpation of spine - Pt reports having no difficulty prior - Avoid oversedation, may contribute to Fecal incontinence Bronchitis: Continue Azithromycin 250 mg daily x 4 days Guaifenesin and Cepacol added HTN: Continue Norvasc Continue Catapres Asthma Continue Ventolin Bipolar Disorder: Management as per psychiatry Substance abuse: Counseled on cessation, strongly advised Tobacco use: Counseled on cessation, strongly advised Continue Nicoderm patch Thank you for allowing us to take care of this patient. Please re-consult us if needed. Case seen and discussed with Dr. Renetta Marrero, PGY-1 <Kike Jackson - Last Filed: 09/19/18 16:43> Objective - Vital Signs/Intake and Output Vital Signs (last 24 hours): Temp Pulse Resp BP Pulse Ox 98.7 F 96 H 20 125/84 96 09/19/18 07:20 09/19/18 09:25 09/19/18 07:20 09/19/18 09:25 09/11/18 22:10 - Medications Medications: Current Medications Acetaminophen (Tylenol 325mg Tab) 650 mg PO Q6H PRN PRN Reason: Pain, moderate (4-7) Last Admin: 09/11/18 22:19 Dose: 650 mg Al Hydrox/Mg Hydrox/Simethicone (Maalox Plus 30 Ml) 30 ml PO DAILY PRN PRN Reason: Upset Stomach Last Admin: 09/19/18 10:57 Dose: 30 ml Albuterol (Ventolin Hfa 90 Mcg/Actuation (8 G)) 2 puff IH [id number] PRN PRN Reason: Shortness of Breath Amlodipine Besylate (Norvasc) 5 mg PO DAILY [facility] Last Admin: 09/19/18 09:25 Dose: 5 mg Ascorbic Acid (Vitamin C 500 Mg Tab) 500 mg PO DAILY [facility] Last Admin: 09/19/18 09:23 Dose: 500 mg Azithromycin (Zithromax) 250 mg PO DAILY [facility]; Protocol Stop: 09/20/18 23:00 Last Admin: 09/19/18 09:24 Dose: 250 mg Benzocaine/Menthol (Cepacol Sore Throat) 1 chas MT Q2H PRN PRN Reason: Sore Throat Divalproex Sodium (Depakote Dr(*Bid*)) 500 mg PO BID [facility]; Protocol Last Admin: 09/19/18 16:00 Dose: 500 mg Guaifenesin (Robitussin) 100 mg PO Q4H PRN PRN Reason: Cough Last Admin: 09/16/18 12:23 Dose: 100 mg Lorazepam (Ativan) 2 mg IM Q6H PRN PRN Reason: Agitation Magnesium Hydroxide (Milk Of Magnesia) 30 ml PO DAILY PRN PRN Reason: Constipation Mirtazapine (Remeron) 15 mg PO HS [facility] Last Admin: 09/18/18 22:25 Dose: 15 mg Multivitamins/Minerals (Therapeutic-M Tab) 1 tab PO DAILY [facility] Last Admin: 09/19/18 09:24 Dose: 1 tab Nicotine (Nicoderm Cq) 1 patch TD DAILY [facility] Last Admin: 09/19/18 09:34 Dose: 1 patch Ondansetron HCl (Zofran Odt) 4 mg PO Q8H PRN PRN Reason: Nausea/Vomiting Last Admin: 09/19/18 14:20 Dose: 4 mg Pantoprazole Sodium (Protonix Ec Tab) 40 mg PO 0600 [facility] Last Admin: 09/19/18 16:01 Dose: 40 mg Risperidone (Risperdal Tab) 1 mg PO AMHS [facility]; Protocol Last Admin: 09/19/18 09:24 Dose: 1 mg Sodium Chloride ([place] Nasal [place]) 0 ml NS BID [facility] Last Admin: 09/19/18 16:01 Dose: 3 spray Zaleplon (Sonata) 5 mg PO HS PRN PRN Reason: Insomnia Last Admin: 09/18/18 22:25 Dose: 5 mg Ziprasidone (Geodon Cap) 20 mg PO Q6H PRN; Protocol PRN Reason: psychosis/agitation Last Admin: 09/15/18 15:58 Dose: 20 mg Ziprasidone (Geodon Inj) 20 mg IM Q6H PRN; Protocol PRN Reason: severe agitaiton/psychosis - Labs Labs: 09/11/18 16:35 09/11/18 16:35 Attending/Attestation - Attestation I have personally seen and examined this patient.: Yes I have fully participated in the care of the patient.: Yes I have reviewed all pertinent clinical information, including history, physical exam and plan: Yes Notes (Text): 09/19/18 16:40 Attending note; Patient seen and examined with resident. Patient is alert and awake. Denies any fevers, chills. Denies any nausea, vomiting. Tolerating diet well Patient had urinary and fecal incontinence this morning. currently wearing a diaper. 1. Patient is a 57-year-old male with a history of asthma is admitted anxiety and depression. 2.URI symptoms resolved.Currently afebrile and nontoxic. Recent chest x-ray is negative for infiltrate Continue albuterol nebulizer. Started on p.o. azithromycin saline Nasal spray ordered. cepacol lozenges and Robitussin ordered. 3. Hypertension; continue Norvasc . 4. Active smoking; smoking cessation is strongly advised . Currently on NicoDerm patch .5. Heroin abuse; drug abuse cessation is strongly advised. 5. Anxiety depression; continue psych medications per psychiatrist. 6. Urinary incontinence; UA is normal. No bladder distention noted. No significant post void residual. Patient refused blood work. Most likely secondary to psychiatric disorder and medication induced. Case discussed with psychiatrist in detail to reduce sedatives on antipsychotic medication. Patient is currently ambulating. No neurological deficit noted. Advised behavioral therapy. Advised timed voiding. Patient is medically stable. Please reconsult as needed. Adjust psychiatric medication. Patient needs close outpatient Follow-up with PMD upon discharge. 09/19/18 16:42
--- NOTE | 2018-09-18 14:10 | PCM.PYCHPN ---
Psychiatric Progress Note - Psychiatric Progress Note Patient seen today, length of contact: 30min Patient Chief Complaint: "I feel a little better" Problems Identified/Issues Discussed: Symptoms: Current presentation, treatment plan, discharge plan, medical issues. Medical Problems: See HPI Diagnostic Results: 09/11/18 16:35 09/11/18 16:35 Lab Results 09/12/18 07:25: RPR Nonreactive 09/12/18 07:20: TSH 3rd Generation 1.69 09/12/18 07:20: Fasting Glucose 92, Triglycerides 97, Cholesterol 180, LDL Cholesterol Direct 97, HDL Cholesterol 40 09/11/18 18:30: Urine Opiates Screen Negative, Urine Methadone Screen Negative, Ur Barbiturates Screen Negative, Ur Phencyclidine Scrn Negative, Ur Amphetamines Screen Negative, U Benzodiazepines Scrn Negative, U Oth Cocaine Metabols Negative, U Cannabinoids Screen Negative 09/11/18 18:30: Urine Color Yellow, Urine Appearance Clear, Urine pH 7.0, Ur Specific [place] <= 1.005, Urine Protein Negative, Urine Glucose (UA) Negative, Urine Ketones Negative, Urine Blood Negative, Urine Nitrate Negative, Urine Bilirubin Negative, Urine Urobilinogen 0.2, Ur Leukocyte Esterase Negative 09/11/18 16:35: Alcohol, Quantitative < 10 09/11/18 16:35: Sodium 137, Potassium 3.8, Chloride 103, Carbon Dioxide 26, Anion Gap 11, BUN 12, Creatinine 1.4, Est GFR ( Amer) > 60, Est GFR (Non- Af Amer) 53, Random Glucose 91, Calcium 9.1, Total Bilirubin 0.1 L, AST 22, ALT 15, Alkaline Phosphatase 94, Total Protein 7.3, Albumin 3.9, Globulin 3.5, Albumin/Globulin Ratio 1.1 09/11/18 16:35: WBC 4.0 L, RBC 4.09, Hgb 11.3 L, Hct 34.7 L, MCV 84.8, MCH 27.6, MCHC 32.6, RDW 15.1 H, Plt Count 310, MPV 9.8, Neut % (Auto) 27.5 L, Lymph % (Auto) 58.6 H, [place] % (Auto) 8.4 H, Eos % (Auto) 4.5, Baso % (Auto) 1.0, Lymph # (Auto) 2.4, [place] # (Auto) 0.3, Eos # (Auto) 0.2, Baso # (Auto) 0.04, Absolute Neuts (auto) 1.11 L Vital Signs Temp Pulse Pulse Resp BP Pulse Ox 09/13/18 09:52 77 117/72 09/13/18 07:10 97.9 F 77 20 117/72 09/12/18 17:44 74 129/80 09/12/18 16:00 74 129/80 09/12/18 07:26 98.1 F 80 20 118/72 09/11/18 23:19 92 H 18 09/11/18 22:20 92 H 150/96 H 09/11/18 22:10 97.8 F 92 H 18 150/92 H 96 09/11/18 21:14 80 18 131/72 100 09/11/18 20:33 98.7 F 80 18 130/79 100 09/11/18 16:47 98.7 F 82 18 136/88 100 Temp Pulse Resp BP Pulse Ox 98 F 76 18 114/76 96 09/16/18 07:00 09/16/18 11:02 09/16/18 07:00 09/16/18 11:02 09/11/18 22:10 DSM 5 Symptoms Update: shortly pt is 57 year old male, not known previous psych h/o, self reported h/o bipolar disorder, denied previous psych admissions, denied h/o suicidal attempts, pt currently homeless, was brought in to the hospital for evaluation of depression, inability to function and "thoughts are not right.", passive wish to be , on top of that pt was using drugs, no social support, pt required further evaluation and stabilization and med adjustment. pt was seen and examined today in his room with Medical Student, there are a lot of brown spots/smears on the wall around his bed, when was asked what is this, pt said "I don't know, I seen it for a first time...", when asked nurse, pt was smearing his feces, pt is psychotic, will increase risperdal. Pt reported minimal improvement with his depressive symptoms. transient feeling of hopelessness, pt sill wants to be referred to inpatient rehab. As per staff patient is not participating in unit activities, self isolating, but no aggression or agitation. So far patient tolerates medications well, no side effects observed or reported, [place] 0, no EPS. No withdrawal symptoms observed or reported. DSM 5 Rule out bipolar disorder as per history Rule out substance-induced mood disorder Polysubstance abuse Medication Change: Yes (risperdal increased) Medical Record Reviewed: Yes Consults ordered or reviewed: Medical consult appreciated see notes for more detailed info Mental Status Examination - Cognitive Function Orientation: Person, Place, Situation Memory: Impaired Attention: Poor Concentration: Poor Association: Loose Fund of Knowledge: Poor - Mood Mood: Depressed - Affect Affect: Flat - Speech Speech: Soft - Formal Thought Process Formal Thought Process: Paranoia (some improvement), Loosening of associations, Other (disorganized) - Suicidal Ideation Suicidal Ideation: No - Homicidal Ideation Homicidal Ideation: No Goal/Treatment Plan - Goal/Treatment Plan Need for Continued Stay: Remain at risks for inpatient hospitalization, Severe depression anxiety, Discharge may exacerbated symptoms, Severe functional impairment Progress Toward Problem(s) and Goals/Treatment Plan: Milieu/structure/supportive therapy SW consultation for discharge plan and social issues, pt is willing to be referred to rehab depakote 500 mg bid for mood stabilization Remeron 15 mg at the nighttime for sleep as well as depression risperdal 1mg amhs for psychosis Multivitamins daily Symptomatic treatment for possible opioid withdrawals Medical consult appreciated for urinary incontinence and URI family involvement Follow up on labs Will monitor closely Pt was educated about risk/benefits and alternatives of medications, coping strategies (safety plan, suicide prevention), relapse prevention, importance of follow up with psychiatrist and therapist, stay away from drugs/alcohol/smoking Estimated Date of D/C: 09/20/18
[2018-09-19 07:22] VITALS: TEMP 98.7
[2018-09-19] MEDS: Multivitamin With Minerals Tab PO SCH (09:24)
[2018-09-19] MEDS: Divalproex 500 mg DR(BID formulation) PO SCH ×2 (09:24→16:00)
[2018-09-19] MEDS: Alum-Mag Hydrox-Simethicone Susp (30 mL) PO PRN (10:57)
[2018-09-19] MEDS: Pantoprazole 40 mg EC Tab PO SCH (16:01)
[2018-09-19 16:48] VITALS: BP 138/82; PULSE 106
--- NOTE | 2018-09-19 17:15 | PCM.PYCHPN ---
Psychiatric Progress Note - Psychiatric Progress Note Patient seen today, length of contact: 30min Patient Chief Complaint: "I do not feel good today, I have dyspepsia, but also vomited, it is hard for me to digest food" Problems Identified/Issues Discussed: Symptoms: Current presentation, treatment plan, discharge plan, medical issues. Medical Problems: See HPI Diagnostic Results: 09/11/18 16:35 09/11/18 16:35 Lab Results 09/12/18 07:25: RPR Nonreactive 09/12/18 07:20: TSH 3rd Generation 1.69 09/12/18 07:20: Fasting Glucose 92, Triglycerides 97, Cholesterol 180, LDL Cholesterol Direct 97, HDL Cholesterol 40 09/11/18 18:30: Urine Opiates Screen Negative, Urine Methadone Screen Negative, Ur Barbiturates Screen Negative, Ur Phencyclidine Scrn Negative, Ur Amphetamines Screen Negative, U Benzodiazepines Scrn Negative, U Oth Cocaine Metabols Negative, U Cannabinoids Screen Negative 09/11/18 18:30: Urine Color Yellow, Urine Appearance Clear, Urine pH 7.0, Ur Specific [place] <= 1.005, Urine Protein Negative, Urine Glucose (UA) Negative, Urine Ketones Negative, Urine Blood Negative, Urine Nitrate Negative, Urine Bilirubin Negative, Urine Urobilinogen 0.2, Ur Leukocyte Esterase Negative 09/11/18 16:35: Alcohol, Quantitative < 10 09/11/18 16:35: Sodium 137, Potassium 3.8, Chloride 103, Carbon Dioxide 26, Anion Gap 11, BUN 12, Creatinine 1.4, Est GFR ( Amer) > 60, Est GFR (Non- Af Amer) 53, Random Glucose 91, Calcium 9.1, Total Bilirubin 0.1 L, AST 22, ALT 15, Alkaline Phosphatase 94, Total Protein 7.3, Albumin 3.9, Globulin 3.5, Albumin/Globulin Ratio 1.1 09/11/18 16:35: WBC 4.0 L, RBC 4.09, Hgb 11.3 L, Hct 34.7 L, MCV 84.8, MCH 27.6, MCHC 32.6, RDW 15.1 H, Plt Count 310, MPV 9.8, Neut % (Auto) 27.5 L, Lymph % (Auto) 58.6 H, [place] % (Auto) 8.4 H, Eos % (Auto) 4.5, Baso % (Auto) 1.0, Lymph # (Auto) 2.4, [place] # (Auto) 0.3, Eos # (Auto) 0.2, Baso # (Auto) 0.04, Absolute Neuts (auto) 1.11 L Vital Signs Temp Pulse Pulse Resp BP Pulse Ox 09/13/18 09:52 77 117/72 09/13/18 07:10 97.9 F 77 20 117/72 09/12/18 17:44 74 129/80 09/12/18 16:00 74 129/80 09/12/18 07:26 98.1 F 80 20 118/72 09/11/18 23:19 92 H 18 09/11/18 22:20 92 H 150/96 H 09/11/18 22:10 97.8 F 92 H 18 150/92 H 96 09/11/18 21:14 80 18 131/72 100 09/11/18 20:33 98.7 F 80 18 130/79 100 09/11/18 16:47 98.7 F 82 18 136/88 100 Temp Pulse Resp BP Pulse Ox 98 F 76 18 114/76 96 09/16/18 07:00 09/16/18 11:02 09/16/18 07:00 09/16/18 11:02 09/11/18 22:10 DSM 5 Symptoms Update: shortly pt is 57 year old male, not known previous psych h/o, self reported h/o bipolar disorder, denied previous psych admissions, denied h/o suicidal attempts, pt currently homeless, was brought in to the hospital for evaluation of depression, inability to function and "thoughts are not right.", passive wish to be , on top of that pt was using drugs, no social support, pt required further evaluation and stabilization and med adjustment. pt was seen and examined today in his room with mental health worker, patient still has incontinence of urine and feces, patient also has tendency of smearing feces on the wall, today patient complained of indigestion, observed vomiting, as per staff patient had difficulty todigest food, will call GI consult. pt is psychotic, increased risperdal yesterday. Pt reported minimal improvement with his depressive symptoms. transient feeling of hopelessness, pt kerwinl wants to be referred to inpatient rehab. As per staff patient is not participating in unit activities, self isolating, but no aggression or agitation. So far patient tolerates medications well, no side effects observed or reported, [place] 0, no EPS. No withdrawal symptoms observed or reported. DSM 5 Rule out bipolar disorder as per history Rule out substance-induced mood disorder Polysubstance abuse Medication Change: Yes (risperdal increased) Medical Record Reviewed: Yes Mental Status Examination - Cognitive Function Orientation: Person, Place, Situation Memory: Impaired Attention: Poor Concentration: Poor Association: Loose Fund of Knowledge: Poor - Mood Mood: Depressed - Affect Affect: Flat - Speech Speech: Soft - Formal Thought Process Formal Thought Process: Paranoia (some improvement), Loosening of associations, Other (disorganized) - Suicidal Ideation Suicidal Ideation: No - Homicidal Ideation Homicidal Ideation: No Goal/Treatment Plan - Goal/Treatment Plan Need for Continued Stay: Remain at risks for inpatient hospitalization, Severe depression anxiety, Discharge may exacerbated symptoms, Severe functional impair ment Progress Toward Problem(s) and Goals/Treatment Plan: Milieu/structure/supportive therapy SW consultation for discharge plan and social issues, pt is willing to be referred to rehab depakote 500 mg bid for mood stabilization Remeron 15 mg at the nighttime for sleep as well as depression risperdal 1mg amhs for psychosis Multivitamins daily Symptomatic treatment for possible opioid withdrawals Medical consult appreciated for urinary incontinence and URI family involvement Follow up on labs Will monitor closely Pt was educated about risk/benefits and alternatives of medications, coping strategies (safety plan, suicide prevention), relapse prevention, importance of follow up with psychiatrist and therapist, stay away from drugs/alcohol/smoking Estimated Date of D/C: 09/20/18
--- NOTE | 2018-09-19 20:53 | CON ---
DATE OF CONSULTATION: 09/19/2018 GASTROENTEROLOGY CONSULTATION REQUESTING PHYSICIAN: Dr. Ross. REASON FOR CONSULTATION: I have been asked to see this 57-year-old male on the psychiatric unit admitted with bipolar disorder, depression, excessive eructation and resulting heartburn. The patient has a history of asthma, hypertension, renal failure, and PEG tube. His PEG tube was removed several weeks ago. The patient apparently is homeless. He denies any dysphagia, abdominal pain, nausea, or vomiting. He denies rectal bleeding. PAST MEDICAL HISTORY: As above. He has a history of bipolar disorder, hypertension, poorly controlled asthma, acute renal failure. PAST SURGICAL HISTORY: Notable for PEG placement, PEG was removed several weeks ago. SOCIAL HISTORY: He snorts heroin, last use was a day before admission. He consumes alcohol socially. He smokes a half-pack of cigarettes per day for many years. REVIEW OF SYSTEMS: Fourteen-point review of systems is positive for eructation and GERD. PHYSICAL EXAMINATION: GENERAL: Middle-aged male, sitting in chair, in no acute distress. VITAL SIGNS: Reveal a temperature of 98.7, blood pressure 125/84, heart rate 96. HEENT: Reveals sclerae to be white. Conjunctivae pink. NECK: Supple. CHEST: Lungs are clear. HEART: Exam reveals regular rate and rhythm. ABDOMEN: Soft. He has a closed gastrostomy trach in his left upper quadrant. There is no abdominal tenderness. EXTREMITIES: Show no edema. LABORATORY DATA: Revealed a white blood cell count of 4, hemoglobin 11.3. Chemistries show normal electrolytes. IMPRESSION: A 57-year-old male with bipolar disorder, depression with recent onset of increased eructation with resulting reflux. RECOMMENDATIONS: 1. We will try the patient on pantoprazole 40 mg once a day. 2. Continue antacids as needed. Pelon Hendrickson MD
[2018-09-20 00:57] LABS: BASO # 0.04 K/mm3 (0.0-2.0); BASO % 0.3 % (0.0-3.0); EOS # 0.3 (0.0-0.7); EOS % 1.6 % (1.5-5.0); HEMOGLOBIN 10.9 g/dL (14.0-18.0); LYMPH # 4.3 (1.2-3.4); LYMPH % 26.9 % (22.0-35.0); MEAN CELL VOLUME 83.4 fl (80.0-105.0); MEAN CORPUSCULAR HEMOGLOBIN 27.4 pg (25.0-35.0); MEAN CORPUSCULAR HGB CONC 32.8 g/dl (31.0-37.0); MEAN PLATELET VOLUME 9.2 fl (7.0-11.0); MONO # 1.4 (0.1-0.6); RBC 3.98 10^6/uL (3.5-6.1); RED CELL DISTRIBUTION WIDTH 14.1 % (11.5-14.5)
[2018-09-20 00:59] LABS: WHITE BLOOD COUNT 15.9 10^3/uL (4.5-11.0)
[2018-09-20 01:16] LABS: ALB/GLOB RATIO 1.1 (1.1-1.8); ALBUMIN 3.7 g/dL (3.0-4.8); ALT/SGPT 21 U/L (7-56); AST/SGOT 27 U/L (17-59); BLOOD UREA NITROGEN 25 mg/dL (7-21); CALCIUM 9.1 mg/dL (8.4-10.5); GFR NON-AFRICAN AMERICAN > 60
[2018-09-20 01:18] LABS: TROPONIN I < 0.01 ng/mL
[2018-09-20] MEDS: Pantoprazole 40 mg EC Tab PO SCH (06:10)
--- NOTE | 2018-09-20 09:18 | PCM.PYCHDC ---
Mental Status Examination - Mental Status Examination Orientation: Person, Place, Situation, Time Memory: Intact Mood: Depressed Affect: Constricted Speech: Appropriate Attention: Poor Concentration: Poor Association: Loose Fund of Knowledge: Poor Formal Thought Process: Other (Disorganized thoughts and disorganized behavior) Description of patient's judgement and insight: Patient still has poor insight Psychotic Thoughts and Behaviors: Patient was smearing his feces on the wall, patient appears to be disorganized Suicidal Ideation: No Current Homicidal Ideation?: No Plan: Denied Discharge Summary - Discharge Note Reason for Hospitalization: pt was admitted for evaluation of depression, inability to function, disorganized thoughts. Psychiatric History (includes Medical, Family, Personal Hx): See HPI Laboratory Data: Abnormal Lab Results 09/20/18 09/20/18 00:45 00:45 WBC 15.9 H D RBC 3.98 Hgb 10.9 L Hct 33.2 L MCV 83.4 MCH 27.4 MCHC 32.8 RDW 14.1 Plt Count 385 MPV 9.2 Neut % (Auto) 62.2 Lymph % (Auto) 26.9 [place] % (Auto) 9.0 H Eos % (Auto) 1.6 Baso % (Auto) 0.3 Lymph # (Auto) 4.3 H [place] # (Auto) 1.4 H Eos # (Auto) 0.3 Baso # (Auto) 0.04 Absolute Neuts (auto) 9.87 H Sodium 138 Potassium 4.5 Chloride 100 Carbon Dioxide 28 Anion Gap 13 BUN 25 H Creatinine 1.2 Est GFR ( Amer) > 60 Est GFR (Non-Af Amer) > 60 Random Glucose 110 Calcium 9.1 Phosphorus 3.5 Magnesium 2.1 Total Bilirubin 0.1 L AST 27 ALT 21 Alkaline Phosphatase 79 Troponin I < 0.01 Total Protein 7.2 Albumin 3.7 Globulin 3.5 Albumin/Globulin Ratio 1.1 Consultations:: List each consultation separately and include: 1. Reason for request. 2. Findings. 3. Follow-up Consultations: Medical consult appreciated Patient needed to be transferred to the medical floor for vomiting, please see medical consultation note for more detailed information Summary of Hospital Course include:: 1. Description of specific treatment plan utilized for patients during their course of treatmen. 2. Summarize the time- course for resolution of acute symptoms and/or regressed behaviors. 3. Describe issues identified and worked on during hospitalization. 4. Describe medication utilized. 5. Describe medical problems identified and treated. 6. Reassessment of suicide risk Summary of Hospital Course: shortly pt is 57 year old male, not known previous psych h/o, self reported h/o bipolar disorder, denied previous psych admissions, denied h/o suicidal attempts, pt currently homeless, was brought in to the hospital for evaluation of depression, inability to function and "thoughts are not right.", passive wish to be , on top of that pt was using drugs, no social support, pt required further evaluation and stabilization and med adjustment. At the time of a dmission patient presented with poor personal hygiene, there is strong body odor, difficult to stay focused and concentrate, fair ADLs. Patient seems to be poor and unreliable historian, especially questions which are related to the medical issues. During psychiatric hospitalization patient to be disorganized, acting bizarre, was smearing his feces on wall, was started on depakote, risperdal. 09/19/18 pt c/o vomiting, medical team was called, pt was transferred to the emergency room and subsequently to the medical floor for further evaluation and stabilization. This contract writer will follow up on the patient as a practice management consultant and advise accordingly. 09/11/18 16:35 09/11/18 16:35 Lab Results 09/12/18 07:20: TSH 3rd Generation 1.69 09/12/18 07:20: Fasting Glucose 92, Triglycerides 97, Cholesterol 180, LDL Cholesterol Direct 97, HDL Cholesterol 40 09/11/18 18:30: Urine Opiates Screen Negative, Urine Methadone Screen Negative, Ur Barbiturates Screen Negative, Ur Phencyclidine Scrn Negative, Ur Amphetamines Screen Negative, U Benzodiazepines Scrn Negative, U Oth Cocaine Metabols Negative, U Cannabinoids Screen Negative 09/11/18 18:30: Urine Color Yellow, Urine Appearance Clear, Urine pH 7.0, Ur Specific [place] <= 1.005, Urine Protein Negative, Urine Glucose (UA) Negative, Urine Ketones Negative, Urine Blood Negative, Urine Nitrate Negative, Urine Bilirubin Negative, Urine Urobilinogen 0.2, Ur Leukocyte Esterase Negative 09/11/18 16:35: Alcohol, Quantitative < 10 09/11/18 16:35: Sodium 137, Potassium 3.8, Chloride 103, Carbon Dioxide 26, Anion Gap 11, BUN 12, Creatinine 1.4, Est GFR ( Amer) > 60, Est GFR (Non- Af Amer) 53, Random Glucose 91, Calcium 9.1, Total Bilirubin 0.1 L, AST 22, ALT 15, Alkaline Phosphatase 94, Total Protein 7.3, Albumin 3.9, Globulin 3.5, Albumin/Globulin Ratio 1.1 09/11/18 16:35: WBC 4.0 L, RBC 4.09, Hgb 11.3 L, Hct 34.7 L, MCV 84.8, MCH 27.6, MCHC 32.6, RDW 15.1 H, Plt Count 310, MPV 9.8, Neut % (Auto) 27.5 L, Lymph % (Auto) 58.6 H, [place] % (Auto) 8.4 H, Eos % (Auto) 4.5, Baso % (Auto) 1.0, Lymph # (Auto) 2.4, [place] # (Auto) 0.3, Eos # (Auto) 0.2, Baso # (Auto) 0.04, Absolute Neuts (auto) 1.11 L Vital Signs Temp Pulse Pulse Resp BP Pulse Ox 09/12/18 07:26 98.1 F 80 20 118/72 09/11/18 23:19 92 H 18 09/11/18 22:20 92 H 150/96 H 09/11/18 22:10 97.8 F 92 H 18 150/92 H 96 09/11/18 21:14 80 18 131/72 100 09/11/18 20:33 98.7 F 80 18 130/79 100 09/11/18 16:47 98.7 F 82 18 136/88 100 [facility] was contacted, [phone] patient was on the following medications: Depakote 500 mg twice a day last filled in December 2017 and Amlodipine 5 mg daily filled December 2017 No recent medications - Diagnosis (1) Polysubstance abuse Status: Acute (2) Bipolar 1 disorder Status: Acute - Final Diagnosis (DSM 5) Condition upon Discharge: FAIR Disposition: OTHER INSTITUTION Follow-up Treatment Plan: pt will be seen on the medical site - Smoking Cessation Smoking Cessation Medication prescribed: No Reason for not providing: [place] [facility] - Antipsychotic Medications Pt discharged on 2 or more routine antipsychotic medications: No
--- NOTE | 2018-09-20 23:58 | CARD ---
APPROVED REPORT Date of service: 09/20/2018 EKG Measurement Heart [id number] <Conclusion> Sinus tachycardia Possible Left atrial enlargement Borderline ECG
== END 2018-09-20 01:28 | disposition short-term general hospital (02) | DRG 753 ==
LOC: ED 15:21 → ERH 20:07 → PSYC 21:21
PROVIDERS: ADMIT Psychiatry & Neurology Psychiatry; ATTEND Psychiatry & Neurology Psychiatry
DX: F31.9 Bipolar disorder, unspecified (principal); I10 Essential (primary) hypertension; K21.9 Gastro-esophageal reflux disease without esophagitis; R14.2 Eructation; F14.10 Cocaine abuse, uncomplicated; J45.909 Unspecified asthma, uncomplicated; R32 Unspecified urinary incontinence; F41.8 Other specified anxiety disorders; F17.210 Nicotine dependence, cigarettes, uncomplicated; Z59.0 Homelessness

== ENCOUNTER 2018-09-20 01:28 | Inpatient (IN) | payer MEDICAID, OTHER ==
[2018-09-20 01:36] VITALS: BMI 32.3
[2018-09-20] MEDS ORDERED: Sodium Chloride 0.9% 1,000 ML IV STA (01:36)
--- NOTE | 2018-09-20 01:40 | ED PDOC ---
Arrival/HPI - General Time Seen by Provider: 09/20/18 01:29 Historian: Patient - History of Present Illness Narrative History of Present Illness (Text): 09/20/18 01:37 57 year old male, whose past medical history includes bipolar disorder and hypertension, presents to the emergency department from psychiatric floor for blood in vomit. Patient informs he has never had any episodes of hematemesis in the past. Patient informs of some mild epigastric pain. Patient denies any fevers, chills, headache, dizziness, chest pain, shortness of breath, dyspnea on exertion, cough, diarrhea, back pain, neck pain, or any other complaint. Time/Duration: Prior to Arrival Symptom Onset: Sudden Symptom Course: Unchanged Activities at Onset: Light Past Medical History - Provider Review Nursing Documentation Reviewed: Yes - Infectious Disease Hx of Infectious Diseases: None - Cardiac Hx Hypertension: Yes (sometimes takes medication) - Pulmonary Hx Asthma: Yes - Neurological Hx Neurological Disorder: No - HEENT Hx HEENT Disorder: No - Renal Hx Renal Disorder: No - Endocrine/Metabolic Hx Endocrine Disorders: No - Hematological/Oncological Hx Blood Disorders: No - Integumentary Hx Dermatological Disorder: No - Musculoskeletal/Rheumatological Hx Musculoskeletal Disorders: No - Gastrointestinal Hx Gastrointestinal Disorders: No - Genitourinary/Gynecological Hx Genitourinary Disorders: No - Psychiatric Hx Bipolar Disorder: Yes Hx Substance Use: Yes - Surgical History Other/Comment: peg tube insertion - Anesthesia Hx Anesthesia: Yes Hx Anesthesia Reactions: No Hx Malignant Hyperthermia: No Family/Social History - Physician Review Nursing Documentation Reviewed: Yes Family/Social History: No Known Family HX Smoking Status: Unknown If Ever Smoked Hx Alcohol Use: No Hx Substance Use: Yes Allergies/Home Meds Allergies/Adverse Reactions: Allergies FISH Allergy (Verified 09/20/18 01:36) ANAPHYLAXIS Home Medications: Home Meds Medication Instructions Recorded Confirmed Risperidone [Risperdal] 0.25 mg PO HS 09/14/18 09/14/18 Review of Systems - Physician Review All systems were reviewed & negative as marked: Yes - Review of Systems Constitutional: absent: Fevers, Night Sweats Respiratory: absent: SOB, Cough Cardiovascular: absent: Chest Pain Gastrointestinal: Abdominal Pain, Vomiting, Hematemesis. absent: Diarrhea Musculoskeletal: absent: Back Pain, Neck Pain Neurological: absent: Headache, Dizziness Physical Exam Vital Signs Reviewed: Yes Vital Signs Temp Pulse Resp BP Pulse Ox 09/20/18 01:34 98.1 F 111 H 18 138/95 H 99 Temperature: Afebrile Blood Pressure: Hypertensive Pulse: Tachycardic Respiratory Rate: Normal Appearance: Positive for: Well-Appearing, Non-Toxic, Comfortable Pain Distress: None Mental Status: Positive for: Alert and Oriented X 3 - Systems Exam Head: Present: Atraumatic, Normocephalic Pupils: Present: PERRL Extroacular Muscles: Present: EOMI Conjunctiva: Present: Normal Mouth: Present: Moist Mucous Membranes Neck: Present: Normal Range of Motion Respiratory/Chest: Present: Clear to Auscultation, Good Air Exchange. No: Respiratory Distress, Accessory Muscle Use Cardiovascular: Present: Regular Rate and Rhythm, Normal S1, S2. No: Murmurs Abdomen: Present: Tenderness (epigastric). No: Distention, Peritoneal Signs Rectal: Present: Occult Blood Back: Present: Normal Inspection Upper Extremity: Present: Normal Inspection. No: Cyanosis, Edema Lower Extremity: Present: Normal Inspection. No: Edema Neurological: Present: GCS=15, CN II-XII Intact, Speech Normal Skin: Present: Warm, Dry, Normal Color. No: Rashes Psychiatric: Present: Alert, Oriented x 3, Normal Insight, Normal Concentration Medical Decision Making ED Course and Treatment: 09/20/18 01:43 Impression: 57 year old male presents for GI Bleed/ hematemesis Plan: -- Type and Screen -- EKG -- Cardiac Iso, CMP, Lipase, Mg -- CBC, Platelets -- Chest X-ray -- Protonix -- Urinalysis -- Reassess and disposition Prior Visits: Notes and results from previous visits were reviewed. Progress Notes: 09/20/18 03:52 EKG Reviewed by me, shows: Sinus tachycardia @ 101bpm 09/20/18 04:28 upper gi bleed. dark stool guiac pos. hemodynamic stable h/h stable. discusse hakeem olmedo. unlikely variceal bleed, request protonix. accepted dr frey. - RAD Interpretation Radiology Orders: 09/20/18 01:35 CHEST PORTABLE [RAD] Stat - Medication Orders Current Medication Orders: Pantoprazole Sodium (Protonix 40mg Ivpb) 40 mg in 100 mls @ 20 mls/hr IVPB .Q5H DELMY Sodium Chloride (Sodium Chloride 0.9%) 1,000 mls @ 999 mls/hr IV .Q1H1M STA Stop: 09/20/18 02:36 Pantoprazole Sodium (Protonix Inj) 40 mg IVP STAT STA Stop: 09/20/18 01:37 - Scribe Statement The provider has reviewed the documentation as recorded by the Scribe Satya Andrade Provider Scribe Attestation: All medical record entries made by the Scribe were at my direction and personally dictated by me. I have reviewed the chart and agree that the record accurately reflects my personal performance of the history, physical exam, medical decision making, and the department course for this patient. I have also personally directed, reviewed, and agree with the discharge instructions and disposition. Disposition/Present on Arrival - Present on Arrival Any Indicators Present on Arrival: No History of DVT/PE: No History of Uncontrolled Diabetes: No Urinary Catheter: No History Surgical Site Infection Following: None - Disposition Have Diagnosis and Disposition been Completed?: Yes Diagnosis: GI bleed Disposition: HOSPITALIZED Disposition Time: 01:00 Patient Problems: Current Active Problems Problem Status Onset Bipolar 1 disorder Acute Polysubstance abuse Acute Condition: STABLE
[2018-09-20] MEDS: Pantoprazole 40mg/100mL NS 40 MG/100 ML BAG IVPB SCH ×5 (02:10→21:24)
[2018-09-20 02:38] LABS: ALB/GLOB RATIO 1.1 (1.1-1.8); ALBUMIN 3.8 g/dL (3.0-4.8); ALT/SGPT 18 U/L (7-56); AST/SGOT 24 U/L (17-59); BLOOD UREA NITROGEN 25 mg/dL (7-21); CALCIUM 9.4 mg/dL (8.4-10.5); GFR NON-AFRICAN AMERICAN > 60; LIPASE 62 U/L (23-300)
[2018-09-20 02:48] LABS: TROPONIN I < 0.01 ng/mL
[2018-09-20 02:50] LABS: BASO # 0.04 K/mm3 (0.0-2.0); BASO % 0.3 % (0.0-3.0); EOS # 0.2 (0.0-0.7); EOS % 1.7 % (1.5-5.0); HEMOGLOBIN 11.1 g/dL (14.0-18.0); LYMPH # 2.6 (1.2-3.4); MEAN CELL VOLUME 83.1 fl (80.0-105.0); MEAN CORPUSCULAR HEMOGLOBIN 27.5 pg (25.0-35.0); MEAN CORPUSCULAR HGB CONC 33.1 g/dl (31.0-37.0); MEAN PLATELET VOLUME 9.7 fl (7.0-11.0); MONO # 1.3 (0.1-0.6); MONO % 9.8 % (1.0-6.0); RBC 4.03 10^6/uL (3.5-6.1); RED CELL DISTRIBUTION WIDTH 14.3 % (11.5-14.5); WHITE BLOOD COUNT 13.1 10^3/uL (4.5-11.0)
[2018-09-20 02:54] LABS: INR 1.14; PARTIAL THROMBOPLASTIN TIME 30.9 Seconds (26.9-38.3); PROTHROMBIN TIME 12.7 SECONDS (9.4-12.5)
[2018-09-20] MEDS ORDERED: Multivitamin (MVI) 10 ML, Thiamine 100 MG, Folic Acid 1 MG in Sodium Chloride 0.9% 1,00... IV ONE (03:12)
[2018-09-20 04:47] LABS: URINE BILIRUBIN NEGATIVE (NEGATIVE); URINE BLOOD NEGATIVE (NEGATIVE); URINE GLUCOSE (UA) NEGATIVE (NEGATIVE); URINE LEUKOCYTE ESTERASE NEGATIVE Leu/uL (NEGATIVE); URINE PROTEIN TRACE mg/dL (<30 mg/dL); URINE UROBILINOGEN 0.2 E.U./dL (<1 E.U./dL)
[2018-09-20 04:48] LABS: URINE APPEARANCE CLEAR (CLEAR); URINE COLOR STRAW (YELLOW)
[2018-09-20 05:32] LABS: URINE BACTERIA MOD /hpf
--- NOTE | 2018-09-20 05:44 | CP.PCM.HP ---
<Abhay Nichols - Last Filed: 09/20/18 05:32> History of Present Illness - History of Present Illness History of Present Illness: PGY1 Medicine History and Physical Exam Note for Dr. Rdz Patient is a 57-year-old M with a PMH significant for bipolar disorder, heroin abuse, depression, excessive eructation, poorly controlled asthma, GERD, previous PEG tube placement (unknown reason) s/p removal, bronchitis, and urinary incontinence who presents to the ED sent from behavioral health unit [place] [facility] [place] due to episodes of ground-coffee emesis. Patient is a poor historian, thus, majority of the HPI is obtained from previous reports and chart review. Per Patient's nurse in [facility], Patient had 1 BM yesterday that was non- bloody. Patient also admits to having eaten a snack earlier in the evening. Patient was vomiting earlier in the day, however it was previously non-bilious/non-bloody vomitus. Patient admits to mild epigastric pain, however he denies fatigue, diaphoresis, fever, chills, dizziness, chest pain, shortness of breath, abdominal pain, diarrhea, dysuria, and/or back pain. PMH: bipolar disorder, heroin abuse, excessive eructation, poorly controlled asthma, GERD, previous PEG tube placement (unknown reason) s/p removal, bronchitis, and urinary incontinence PSH: Patient denies Medications: MAR reviewed Allergies: Fish Social Hx: Admits to smoking 1/2 ppd x 6 months, admits to social EtOH use (1 drink on weekends), admits to heroin use last used day before yesterday (snorted) Family Hx: Unknown Present on Admission - Present on Admission Any Indicators Present on Admission: No History of DVT/PE: No History of Uncontrolled Diabetes: No Urinary Catheter: No Decubitus Ulcer Present: No Review of Systems - Review of Systems All systems: reviewed and no additional remarkable complaints except (as mentioned in HPI) Past Patient History - Infectious Disease Hx of Infectious Diseases: None - Past Social History Smoking Status: Unknown If Ever Smoked - CARDIAC Hx Hypertension: Yes (sometimes takes medication) - PULMONARY Hx Asthma: Yes - NEUROLOGICAL Hx Neurological Disorder: No - HEENT Hx HEENT Problems: No - RENAL Hx Chronic Kidney Disease: No - ENDOCRINE/METABOLIC Hx Endocrine Disorders: No - HEMATOLOGICAL/ONCOLOGICAL Hx Blood Disorders: No - INTEGUMENTARY Hx Dermatological Problems: No - MUSCULOSKELETAL/RHEUMATOLOGICAL Hx Musculoskeletal Disorders: No - GASTROINTESTINAL Hx Gastrointestinal Disorders: No - GENITOURINARY/GYNECOLOGICAL Hx Genitourinary Disorders: No - PSYCHIATRIC Hx Bipolar Disorder: Yes Hx Substance Use: Yes - SURGICAL HISTORY Other/Comment: peg tube insertion - ANESTHESIA Hx Anesthesia: Yes Hx Anesthesia Reactions: No Hx Malignant Hyperthermia: No Meds Allergies/Adverse Reactions: Allergies Allergy/AdvReac Type Severity Reaction Status Date / Time FISH Allergy ANAPHYLAXIS Verified 09/20/18 01:36 Physical Exam - Constitutional Appears: Non-toxic, No Acute Distress - Head Exam Head Exam: ATRAUMATIC, NORMAL INSPECTION, NORMOCEPHALIC - Eye Exam Eye Exam: EOMI, Normal appearance, PERRL Pupil Exam: NORMAL ACCOMODATION - ENT Exam ENT Exam: Mucous Membranes Dry, Normal Exam - Neck Exam Neck exam: Positive for: Normal Inspection - Respiratory Exam Respiratory Exam: Clear to Auscultation Bilateral, NORMAL BREATHING PATTERN. absent: Accessory Muscle Use, Chest Wall Tenderness, Decreased Breath Sounds, Prolonged Expiratory Phase, Rhonchi, Wheezes, Respiratory Distress, Stridor - Cardiovascular Exam Cardiovascular Exam: REGULAR RHYTHM, +S1, +S2 - GI/Abdominal Exam GI & Abdominal Exam: Normal Bowel Sounds, Soft, Tenderness (epigastric region (mild) ). absent: Diminished Bowel Sounds, Distended, Firm, Guarding, Hernia, Hyperactive Bowel Sounds, Mass, Pulsatile Mass, Rebound, Rigid - Rectal Exam Additional comments: +FOBT per ED note - Extremities Exam Extremities exam: Positive for: full ROM, normal inspection, pedal pulses present - Back Exam Back exam: NORMAL INSPECTION. absent: CVA tenderness (L), CVA tenderness (R) - Neurological Exam Neurological exam: Alert, CN II-XII Intact, Oriented x3 - Psychiatric Exam Psychiatric exam: Normal Affect, Normal Mood - Skin Skin Exam: Dry, Intact, Normal Color, Warm Results - Vital Signs Recent Vital Signs: Last Vital Signs Temp 98.1 F 09/20/18 01:34 Pulse 111 H 09/20/18 01:34 Resp 18 09/20/18 01:34 BP 138/95 H 09/20/18 01:34 Pulse Ox 99 09/20/18 01:34 - Labs Result Diagrams: 09/20/18 02:10 09/20/18 02:10 Labs: Laboratory Results - last 24 hr 09/20/18 09/20/18 09/20/18 02:10 02:10 02:10 WBC 13.1 H RBC 4.03 Hgb 11.1 L Hct 33.5 L MCV 83.1 MCH 27.5 MCHC 33.1 RDW 14.3 Plt Count 407 MPV 9.7 Neut % (Auto) 68.2 H Lymph % (Auto) 20.0 L Branch % (Auto) 9.8 H Eos % (Auto) 1.7 Baso % (Auto) 0.3 Lymph # (Auto) 2.6 Branch # (Auto) 1.3 H Eos # (Auto) 0.2 Baso # (Auto) 0.04 Absolute Neuts (auto) 8.95 H PT 12.7 H INR 1.14 APTT 30.9 Sodium 137 Potassium 4.7 Chloride 101 Carbon Dioxide 27 Anion Gap 13 BUN 25 H Creatinine 1.1 Est GFR ( Amer) > 60 Est GFR (Non-Af Amer) > 60 Random Glucose 113 H Calcium 9.4 Magnesium 2.0 Total Bilirubin 0.2 AST 24 ALT 18 Alkaline Phosphatase 81 Lactate Dehydrogenase 407 Total Creatine Kinase 45 Troponin I < 0.01 Total Protein 7.4 Albumin 3.8 Globulin 3.5 Albumin/Globulin Ratio 1.1 Lipase 62 Urine Color Urine Appearance Urine pH Ur Specific [place] Urine Protein Urine Glucose (UA) Urine Ketones Urine Blood Urine Nitrate Urine Bilirubin Urine Urobilinogen Ur Leukocyte Esterase Blood Type Blood Type Confirm Antibody Screen BBK History Checked 09/20/18 09/20/18 09/20/18 02:10 02:45 03:59 WBC RBC Hgb Hct MCV MCH MCHC RDW Plt Count MPV Neut % (Auto) Lymph % (Auto) Branch % (Auto) Eos % (Auto) Baso % (Auto) Lymph # (Auto) Branch # (Auto) Eos # (Auto) Baso # (Auto) Absolute Neuts (auto) PT INR APTT Sodium Potassium Chloride Carbon Dioxide Anion Gap BUN Creatinine Est GFR ( Amer) Est GFR (Non-Af Amer) Random Glucose Calcium Magnesium Total Bilirubin AST ALT Alkaline Phosphatase Lactate Dehydrogenase Total Creatine Kinase Troponin I Total Protein Albumin Globulin Albumin/Globulin Ratio Lipase Urine Color Straw Urine Appearance Clear Urine pH 7.0 Ur Specific [place] 1.015 Urine Protein Trace H Urine Glucose (UA) Negative Urine Ketones Negative Urine Blood Negative Urine Nitrate Negative Urine Bilirubin Negative Urine Urobilinogen 0.2 Ur Leukocyte Esterase Negative Blood Type O POSITIVE Blood Type Confirm O POSITIVE Antibody Screen Negative BBK History Checked No verified bt Assessment & Plan - Assessment and Plan (Free Text) Assessment: Patient is a 57 yo M with PMH significant for poorly controlled asthma, HTN, depression, bipolar disorder, previous PEG tube placement (unknown reason) s/p removal, bronchitis, and urinary incontinence, who was originally admitted to psychiatric floor accompanied by social work therapist for not feeling himself. While in the psychiatric unit, patient was vomiting excessively and on 09/20 in the morning, he was found to have ground coffee emesis. Thus Patient admitted under medicine team for close monitoring, place NPO, and for administration of IV protonix. GI bleed with ground coffee emesis likely secondary to recent onset of increased eructation with resulting reflux - FOBT + - GI consulted (Dr. Hendrickson) recommendations appreciated - Protonix IV - Serial CBC Q4H - CMP, Mg, Phos in AM - Normotensive - S/P bolus - Aspiration precautions - NPO - Hgb 11.1 - EKG: no QTc prolongation; LVH - Zofran PRN - Monitor vitals Polysubstance abuse - Nicotine patch - Encouraged complete cessation of heroin abuse Bronchitis - Continue Zithromax 250mg IVPB - Monitor CBC - Afebrile - Leukocytosis HTN: - Norvasc 5 qd - Hold if SBP is less than 100 Asthma - duoneb Bipolar Disorder: - Psychiatry (Dr. Guzman) consulted; recommendations appreciated - Management as per Psych team Depression - Psychiatry (Dr. Guzman) consulted; recommendations appreciated - Management as per Psych team Prophylaxis - DVT: SCD, hold AC at this time - GI: protonix IV Discussed with Dr. Kajal Nichols PGY1 <Edwardo Rdz - Last Filed: 09/20/18 20:01> Results - Vital Signs Recent Vital Signs: Last Vital Signs Temp 98.2 F 09/20/18 13:40 Pulse 95 H 09/20/18 18:00 Resp 18 09/20/18 14:50 BP 123/82 09/20/18 13:40 Pulse Ox 97 09/20/18 09:23 - Labs Result Diagrams: 09/20/18 17:07 09/20/18 06:20 Labs: Laboratory Results - last 24 hr 09/20/18 09/20/18 09/20/18 02:10 02:10 02:10 WBC 13.1 H RBC 4.03 Hgb 11.1 L Hct 33.5 L MCV 83.1 MCH 27.5 MCHC 33.1 RDW 14.3 Plt Count 407 MPV 9.7 Neut % (Auto) 68.2 H Lymph % (Auto) 20.0 L Branch % (Auto) 9.8 H Eos % (Auto) 1.7 Baso % (Auto) 0.3 Lymph # (Auto) 2.6 Branch # (Auto) 1.3 H Eos # (Auto) 0.2 Baso # (Auto) 0.04 Absolute Neuts (auto) 8.95 H PT 12.7 H INR 1.14 APTT 30.9 Sodium 137 Potassium 4.7 Chloride 101 Carbon Dioxide 27 Anion Gap 13 BUN 25 H Creatinine 1.1 Est GFR ( Amer) > 60 Est GFR (Non-Af Amer) > 60 Random Glucose 113 H Calcium 9.4 Magnesium 2.0 Total Bilirubin 0.2 AST 24 ALT 18 Alkaline Phosphatase 81 Lactate Dehydrogenase 407 Total Creatine Kinase 45 Troponin I < 0.01 Total Protein 7.4 Albumin 3.8 Globulin 3.5 Albumin/Globulin Ratio 1.1 Lipase 62 Urine Color Urine Appearance Urine pH Ur Specific [place] Urine Protein Urine Glucose (UA) Urine Ketones Urine Blood Urine Nitrate Urine Bilirubin Urine Urobilinogen Ur Leukocyte Esterase Urine RBC Urine WBC Ur Epithelial Cells Urine Bacteria Urine Other HIV 1&2 Antibody Screen Blood Type Blood Type Confirm Antibody Screen BBK History Checked 09/20/18 09/20/18 09/20/18 02:10 02:45 03:59 WBC RBC Hgb Hct MCV MCH MCHC RDW Plt Count MPV Neut % (Auto) Lymph % (Auto) Branch % (Auto) Eos % (Auto) Baso % (Auto) Lymph # (Auto) Branch # (Auto) Eos # (Auto) Baso # (Auto) Absolute Neuts (auto) PT INR APTT Sodium Potassium Chloride Carbon Dioxide Anion Gap BUN Creatinine Est GFR ( Amer) Est GFR (Non-Af Amer) Random Glucose Calcium Magnesium Total Bilirubin AST ALT Alkaline Phosphatase Lactate Dehydrogenase Total Creatine Kinase Troponin I Total Protein Albumin Globulin Albumin/Globulin Ratio Lipase Urine Color Straw Urine Appearance Clear Urine pH 7.0 Ur Specific [place] 1.015 Urine Protein Trace H Urine Glucose (UA) Negative Urine Ketones Negative Urine Blood Negative Urine Nitrate Negative Urine Bilirubin Negative Urine Urobilinogen 0.2 Ur Leukocyte Esterase Negative Urine RBC None Urine WBC None Ur Epithelial Cells 3 - 4 Urine Bacteria Mod Urine Other Mucus HIV 1&2 Antibody Screen Blood Type O POSITIVE Blood Type Confirm O POSITIVE Antibody Screen Negative BBK History Checked No verified bt 09/20/18 09/20/18 09/20/18 06:20 06:20 10:20 WBC 11.8 H 11.7 H RBC 3.69 3.70 Hgb 10.1 L 10.2 L Hct 30.8 L 31.0 L MCV 83.5 83.8 MCH 27.4 27.6 MCHC 32.8 32.9 RDW 14.3 14.4 Plt Count 376 354 MPV 9.5 9.0 Neut % (Auto) 59.7 59.0 Lymph % (Auto) 27.2 28.8 Branch % (Auto) 10.6 H 9.2 H Eos % (Auto) 2.2 2.6 Baso % (Auto) 0.3 0.4 Lymph # (Auto) 3.2 3.4 Branch # (Auto) 1.3 H 1.1 H Eos # (Auto) 0.3 0.3 Baso # (Auto) 0.04 0.05 Absolute Neuts (auto) 7.04 H 6.92 H PT INR APTT Sodium 139 Potassium 4.7 Chloride 105 Carbon Dioxide 27 Anion Gap 12 BUN 22 H Creatinine 1.1 Est GFR ( Amer) > 60 Est GFR (Non-Af Amer) > 60 Random Glucose 94 Calcium 8.7 Magnesium 2.1 Total Bilirubin 0.2 AST 19 ALT 15 Alkaline Phosphatase 67 Lactate Dehydrogenase Total Creatine Kinase Troponin I Total Protein 6.5 Albumin 3.3 Globulin 3.2 Albumin/Globulin Ratio 1.1 Lipase Urine Color Urine Appearance Urine pH Ur Specific [place] Urine Protein Urine Glucose (UA) Urine Ketones Urine Blood Urine Nitrate Urine Bilirubin Urine Urobilinogen Ur Leukocyte Esterase Urine RBC Urine WBC Ur Epithelial Cells Urine Bacteria Urine Other HIV 1&2 Antibody Screen Blood Type Blood Type Confirm Antibody Screen BBK History Checked 09/20/18 09/20/18 09/20/18 10:20 13:00 17:07 WBC 12.9 H 12.0 H RBC 3.83 3.41 L Hgb 10.5 L 9.2 L Hct 32.3 L 28.4 L MCV 84.3 83.3 MCH 27.4 27.0 MCHC 32.5 32.4 RDW 14.4 14.5 Plt Count 387 371 MPV 9.4 9.2 Neut % (Auto) 55.6 55.4 Lymph % (Auto) 33.3 31.1 Branch % (Auto) 8.4 H 10.6 H Eos % (Auto) 2.3 2.5 Baso % (Auto) 0.4 0.4 Lymph # (Auto) 4.3 H 3.7 H Branch # (Auto) 1.1 H 1.3 H Eos # (Auto) 0.3 0.3 Baso # (Auto) 0.05 0.05 Absolute Neuts (auto) 7.17 H 6.63 H PT INR APTT Sodium Potassium Chloride Carbon Dioxide Anion Gap BUN Creatinine Est GFR ( Amer) Est GFR (Non-Af Amer) Random Glucose Calcium Magnesium Total Bilirubin AST ALT Alkaline Phosphatase Lactate Dehydrogenase Total Creatine Kinase Troponin I Total Protein Albumin Globulin Albumin/Globulin Ratio Lipase Urine Color Urine Appearance Urine pH Ur Specific [place] Urine Protein Urine Glucose (UA) Urine Ketones Urine Blood Urine Nitrate Urine Bilirubin Urine Urobilinogen Ur Leukocyte Esterase Urine RBC Urine WBC Ur Epithelial Cells Urine Bacteria Urine Other HIV 1&2 Antibody Screen Negative Blood Type Blood Type Confirm Antibody Screen BBK History Checked Attending/Attestation - Attestation I have personally seen and examined this patient.: Yes I have fully participated in the care of the patient.: Yes I have reviewed all pertinent clinical information: Yes Notes (Text): 09/20/18 20:01 seen and examined. Discussed with resident. A&P as above. Hematemesis mgmt per GI.
[2018-09-20 07:00] LABS: BASO # 0.04 K/mm3 (0.0-2.0); BASO % 0.3 % (0.0-3.0); EOS # 0.3 (0.0-0.7); EOS % 2.2 % (1.5-5.0); HEMOGLOBIN 10.1 g/dL (14.0-18.0); LYMPH # 3.2 (1.2-3.4); LYMPH % 27.2 % (22.0-35.0); MEAN CELL VOLUME 83.5 fl (80.0-105.0); MEAN CORPUSCULAR HEMOGLOBIN 27.4 pg (25.0-35.0); MEAN CORPUSCULAR HGB CONC 32.8 g/dl (31.0-37.0); MEAN PLATELET VOLUME 9.5 fl (7.0-11.0); MONO # 1.3 (0.1-0.6); MONO % 10.6 % (1.0-6.0); RBC 3.69 10^6/uL (3.5-6.1); RED CELL DISTRIBUTION WIDTH 14.3 % (11.5-14.5); WHITE BLOOD COUNT 11.8 10^3/uL (4.5-11.0)
[2018-09-20 07:29] LABS: ALB/GLOB RATIO 1.1 (1.1-1.8); ALBUMIN 3.3 g/dL (3.0-4.8); ALT/SGPT 15 U/L (7-56); AST/SGOT 19 U/L (17-59); BLOOD UREA NITROGEN 22 mg/dL (7-21); CALCIUM 8.7 mg/dL (8.4-10.5); GFR NON-AFRICAN AMERICAN > 60
[2018-09-20] MEDS ORDERED: Propofol 10 mg/ml Inj (20 ML) ONE (08:24)
[2018-09-20] MEDS ORDERED: Sodium Chloride 0.9% 1,000 ML IV SCH (08:45)
--- NOTE | 2018-09-20 09:15 | RAD ---
Date of service: 09/20/2018 HISTORY: gi bleed COMPARISON: 09/11/2018 TECHNIQUE: 1 view obtained. FINDINGS: LUNGS: No active pulmonary disease. PLEURA: No significant pleural effusion identified, no pneumothorax apparent. CARDIOVASCULAR: No aortic atherosclerotic calcification present. Normal cardiac size. No pulmonary vascular congestion. OSSEOUS STRUCTURES: No significant abnormalities. VISUALIZED UPPER ABDOMEN: Normal. OTHER FINDINGS: Multiple round metallic fragments over the right side of the chest. These are unchanged IMPRESSION: No active disease.
[2018-09-20] MEDS ORDERED: Azithromycin 250 MG in Sodium Chloride 0.9% 250 ML IVPB SCH (10:00)
[2018-09-20 10:29] LABS: BASO # 0.05 K/mm3 (0.0-2.0); BASO % 0.4 % (0.0-3.0); EOS # 0.3 (0.0-0.7); EOS % 2.6 % (1.5-5.0); HEMOGLOBIN 10.2 g/dL (14.0-18.0); LYMPH # 3.4 (1.2-3.4); LYMPH % 28.8 % (22.0-35.0); MEAN CELL VOLUME 83.8 fl (80.0-105.0); MEAN CORPUSCULAR HEMOGLOBIN 27.6 pg (25.0-35.0); MEAN CORPUSCULAR HGB CONC 32.9 g/dl (31.0-37.0); MONO # 1.1 (0.1-0.6); MONO % 9.2 % (1.0-6.0); RBC 3.7 10^6/uL (3.5-6.1); RED CELL DISTRIBUTION WIDTH 14.4 % (11.5-14.5); WHITE BLOOD COUNT 11.7 10^3/uL (4.5-11.0)
--- NOTE | 2018-09-20 11:08 | CON ---
DATE: 09/20/2018 GASTROENTEROLOGY CONSULTATION REQUESTING PHYSICIAN: Dr. Jackson. REASON FOR CONSULTATION: I was called to see this patient who I saw on the Psychiatric Unit yesterday for reflux and excessive eructation for vomiting coffee-ground material. HISTORY OF PRESENT ILLNESS: The patient had an episode of vomiting yesterday. Subsequently, he vomited coffee-ground material and was sent to the emergency room. He admits to some epigastric pain and excessive eructation; he is a heroin abuser as well as having bipolar disorder. He was admitted to the hospital with depression. PAST MEDICAL HISTORY: Is notable for asthma with noncompliance to medications, bronchitis, bipolar disorder, heroin use, gastroesophageal reflux disease. PAST SURGICAL HISTORY: Is notable for PEG placement with subsequent PEG removal. SOCIAL HISTORY: The patient apparently consumes alcohol on a social basis. He smokes half pack of cigarettes per day and has done so for many years. He is homeless. He also was a heroin snorter. FAMILY HISTORY: Is noncontributory. REVIEW OF SYSTEMS: A 14-point review of systems is notable for coffee-ground emesis. PHYSICAL EXAMINATION: GENERAL: Well-developed male in no distress. VITAL SIGNS: Reveal temperature of 98.1, blood pressure 124/79, heart rate of 103. HEENT: Reveals sclerae to be white, conjunctivae pink. NECK: Supple. CHEST: Lungs are clear. HEART: Exam reveals regular rate and rhythm. ABDOMEN: Soft, nontender. EXTREMITIES: Show no edema. LABORATORY DATA: Reveal white blood cell count of 11.8, hemoglobin 10.1. Chemistries reveal a BUN of 22, creatinine of 1.1. IMPRESSION: This is a 57-year-old male with excessive eructation and history of bipolar disorder, history of heroin use with an episode of coffee-ground emesis. His hemoglobin appears relatively stable. RECOMMENDATIONS: We will schedule the patient for an endoscopy for this morning. Pelon Hendrickson MD
[2018-09-20 13:07] LABS: BASO # 0.05 K/mm3 (0.0-2.0); BASO % 0.4 % (0.0-3.0); EOS # 0.3 (0.0-0.7); EOS % 2.3 % (1.5-5.0); HEMOGLOBIN 10.5 g/dL (14.0-18.0); LYMPH # 4.3 (1.2-3.4); LYMPH % 33.3 % (22.0-35.0); MEAN CELL VOLUME 84.3 fl (80.0-105.0); MEAN CORPUSCULAR HEMOGLOBIN 27.4 pg (25.0-35.0); MEAN CORPUSCULAR HGB CONC 32.5 g/dl (31.0-37.0); MEAN PLATELET VOLUME 9.4 fl (7.0-11.0); MONO # 1.1 (0.1-0.6); MONO % 8.4 % (1.0-6.0); RBC 3.83 10^6/uL (3.5-6.1); RED CELL DISTRIBUTION WIDTH 14.4 % (11.5-14.5); WHITE BLOOD COUNT 12.9 10^3/uL (4.5-11.0)
[2018-09-20] MEDS: Sucralfate 1 gm/10 ml Oral Susp UD PO SCH ×3 (13:23→21:24)
[2018-09-20 17:28] LABS: BASO # 0.05 K/mm3 (0.0-2.0); BASO % 0.4 % (0.0-3.0); EOS # 0.3 (0.0-0.7); EOS % 2.5 % (1.5-5.0); HEMOGLOBIN 9.2 g/dL (14.0-18.0); LYMPH # 3.7 (1.2-3.4); LYMPH % 31.1 % (22.0-35.0); MEAN CELL VOLUME 83.3 fl (80.0-105.0); MEAN CORPUSCULAR HGB CONC 32.4 g/dl (31.0-37.0); MEAN PLATELET VOLUME 9.2 fl (7.0-11.0); MONO # 1.3 (0.1-0.6); MONO % 10.6 % (1.0-6.0); RBC 3.41 10^6/uL (3.5-6.1); RED CELL DISTRIBUTION WIDTH 14.5 % (11.5-14.5)
[2018-09-20] MEDS: Albuterol-Ipratrop 3 mg / 0.5 (3 ml) UD IH SCH (20:23)
[2018-09-20 20:25] VITALS: O2SAT 98
--- NOTE | 2018-09-20 23:57 | CARD ---
APPROVED REPORT Date of service: 09/20/2018 EKG Measurement Heart [id number] <Conclusion> Sinus tachycardia Otherwise normal ECG
[2018-09-21] MEDS: Albuterol-Ipratrop 3 mg / 0.5 (3 ml) UD IH SCH ×4 (01:29→19:51)
[2018-09-21] MEDS: Pantoprazole 40mg/100mL NS 40 MG/100 ML BAG IVPB SCH ×3 (01:56→12:15)
[2018-09-21 07:27] LABS: ALBUMIN 3.3 g/dL (3.0-4.8); ALT/SGPT 20 U/L (7-56); AST/SGOT 23 U/L (17-59); BLOOD UREA NITROGEN 20 mg/dL (7-21); CALCIUM 9.1 mg/dL (8.4-10.5); GFR NON-AFRICAN AMERICAN > 60
[2018-09-21] MEDS: Sucralfate 1 gm/10 ml Oral Susp UD PO SCH ×4 (10:17→21:11)
--- NOTE | 2018-09-21 13:45 | PN ---
DATE: 09/21/2018 SUBJECTIVE: The patient is lying in for in bed with a flat, depressed affect. He continues to have intermittent belching and eructation. PHYSICAL EXAMINATION: VITAL SIGNS: Revealed temperature of 98.4, blood pressure 124/71, heart rate 91. HEENT: Reveals sclerae to be white. Conjunctivae pink. NECK: Supple. CHEST: Lungs are clear. HEART: Exam reveals regular rate and rhythm. ABDOMEN: Obese, soft, nontender. EXTREMITIES: Show no edema. LABORATORY DATA: Reveal white blood cell count 12, hemoglobin 9.2. Chemistries reveal BUN 20, creatinine 1.2. IMPRESSION: This 57-year-old male admitted to the psychiatric curry with depression, bipolar disorder with an episode of coffee-ground emesis, upper endoscopy showed a circumferential ulcer of the distal esophagus. I suspect also that the patient may have heroin withdrawal. RECOMMENDATIONS: 1. Will start the patient on clear liquid diet. 2. Continue Protonix. 3. Continue Carafate suspension. Peoln Hendrickson MD
--- NOTE | 2018-09-21 14:56 | CP.PCM.DIS ---
<Seb Hagen - Last Filed: 09/21/18 15:59> Provider - Provider Date of Admission: 09/20/18 03:03 Attending physician: Kike Jackson MD Consults: 09/20/18 04:02 Gastroenterology Consult Routine Comment: Consulting Provider: Pelon Hendrickson Consulting Physician: Pelon Hendrickson Reason for Consult: GI bleed (lower) 09/20/18 04:03 Psychiatry Consult Routine Comment: Consulting Provider: Megan Ross Consulting Physician: Megan Ross Reason for Consult: Bipolar Disorder Time Spent in preparation of Discharge (in minutes): 45 Diagnosis - Discharge Diagnosis (1) Duodenal ulcer Status: Resolved (2) Coffee ground emesis Status: Resolved (3) Bipolar 1 disorder Status: Chronic (4) Polysubstance abuse Status: Chronic Hospital Course - Lab Results Lab Results: Micro Results 09/20/18 04:30 Blood Blood Culture - Preliminary NO GROWTH AFTER 24 HOURS Most Recent Lab Values WBC 12.0 10^3/uL (4.5-11.0) H 09/20/18 17:07 RBC 3.41 10^6/uL (3.5-6.1) L 09/20/18 17:07 Hgb 9.2 g/dL (14.0-18.0) L 09/20/18 17:07 Hct 28.4 % (42.0-52.0) L 09/20/18 17:07 MCV 83.3 fl (80.0-105.0) 09/20/18 17:07 MCH 27.0 pg (25.0-35.0) 09/20/18 17:07 MCHC 32.4 g/dl (31.0-37.0) 09/20/18 17:07 RDW 14.5 % (11.5-14.5) 09/20/18 17:07 Plt Count 371 10^3/uL (120.0-450.0) 09/20/18 17:07 MPV 9.2 fl (7.0-11.0) 09/20/18 17:07 Neut % (Auto) 55.4 % (50.0-68.0) 09/20/18 17:07 Lymph % (Auto) 31.1 % (22.0-35.0) 09/20/18 17:07 Moody % (Auto) 10.6 % (1.0-6.0) H 09/20/18 17:07 Eos % (Auto) 2.5 % (1.5-5.0) 09/20/18 17:07 Baso % (Auto) 0.4 % (0.0-3.0) 09/20/18 17:07 Lymph # (Auto) 3.7 (1.2-3.4) H 09/20/18 17:07 Moody # (Auto) 1.3 (0.1-0.6) H 09/20/18 17:07 Eos # (Auto) 0.3 (0.0-0.7) 09/20/18 17:07 Baso # (Auto) 0.05 K/mm3 (0.0-2.0) 09/20/18 17:07 Absolute Neuts (auto) 6.63 (1.4-6.5) H 09/20/18 17:07 PT 12.7 SECONDS (9.4-12.5) H 09/20/18 02:10 INR 1.14 09/20/18 02:10 APTT 30.9 Seconds (26.9-38.3) 09/20/18 02:10 Sodium 138 mmol/L (132-148) 09/21/18 06:00 Potassium 4.5 mmol/L (3.6-5.0) 09/21/18 06:00 Chloride 104 mmol/L (98-107) 09/21/18 06:00 Carbon Dioxide 26 mmol/L (21-33) 09/21/18 06:00 Anion Gap 13 (10-20) 09/21/18 06:00 BUN 20 mg/dL (7-21) 09/21/18 06:00 Creatinine 1.2 mg/dl (0.8-1.5) 09/21/18 06:00 Est GFR ( Amer) > 60 09/21/18 06:00 Est GFR (Non-Af Amer) > 60 09/21/18 06:00 POC Glucose (mg/dL) 99 mg/dL (65-110) 09/20/18 08:04 Random Glucose 83 mg/dL (70-110) 09/21/18 06:00 Calcium 9.1 mg/dL (8.4-10.5) 09/21/18 06:00 Phosphorus 3.9 mg/dL (2.5-4.5) 09/21/18 06:00 Magnesium 2.1 mg/dL (1.7-2.2) 09/20/18 06:20 Total Bilirubin 0.2 mg/dL (0.2-1.3) 09/21/18 06:00 AST 23 U/L (17-59) 09/21/18 06:00 ALT 20 U/L (7-56) 09/21/18 06:00 Alkaline Phosphatase 74 U/L (38-126) 09/21/18 06:00 Lactate Dehydrogenase 407 U/L (333-699) 09/20/18 02:10 Total Creatine Kinase 45 U/L (35-230) 09/20/18 02:10 Troponin I < 0.01 ng/mL 09/20/18 02:10 Total Protein 6.5 g/dL (5.8-8.3) 09/21/18 06:00 Albumin 3.3 g/dL (3.0-4.8) 09/21/18 06:00 Globulin 3.2 gm/dL 09/21/18 06:00 Albumin/Globulin Ratio 1.0 (1.1-1.8) L 09/21/18 06:00 Lipase 62 U/L (23-300) 09/20/18 02:10 Urine Color Straw (YELLOW) 09/20/18 03:59 Urine Appearance Clear (CLEAR) 09/20/18 03:59 Urine pH 7.0 (4.7-8.0) 09/20/18 03:59 Ur Specific [place] 1.015 (1.005-1.035) 09/20/18 03:59 Urine Protein Trace mg/dL (<30 mg/dL) H 09/20/18 03:59 Urine Glucose (UA) Negative mg/dL (NEGATIVE) 09/20/18 03:59 Urine Ketones Negative mg/dL (NEGATIVE) 09/20/18 03:59 Urine Blood Negative (NEGATIVE) 09/20/18 03:59 Urine Nitrate Negative (NEGATIVE) 09/20/18 03:59 Urine Bilirubin Negative (NEGATIVE) 09/20/18 03:59 Urine Urobilinogen 0.2 E.U./dL (<1 E.U./dL) 09/20/18 03:59 Ur Leukocyte Esterase Negative Keisha/uL (NEGATIVE) 09/20/18 03:59 Urine RBC None /hpf (0-2) 09/20/18 03:59 Urine WBC None /hpf (0-6) 09/20/18 03:59 Ur Epithelial Cells 3 - 4 /hpf (0-5) 09/20/18 03:59 Urine Bacteria Mod /hpf (NONE) 09/20/18 03:59 Urine Other Mucus /hpf 09/20/18 03:59 HIV 1&2 Antibody Screen Negative (NEGATIVE) 09/20/18 10:20 Blood Type O POSITIVE 09/20/18 02:10 Blood Type Confirm O POSITIVE 09/20/18 02:45 Antibody Screen Negative 09/20/18 02:10 BBK History Checked No verified bt 09/20/18 02:10 - Hospital Course Hospital Course: Upon Admission: 57-year-old M with a PMH significant for bipolar disorder, heroin abuse, depression, excessive eructation, poorly controlled asthma, GERD, previous PEG tube placement (unknown reason) s/p removal, bronchitis, and urinary incontinence who presents to the ED sent from behavioral health unit at [facility] due to episodes of ground-coffee emesis. Patient is a poor historian, thus, majority of the HPI is obtained from previous reports and chart review. Per Patient's nurse in behavioral health, Patient had 1 BM yesterday that was non-bloody. Patient also admits to having eaten a snack earlier in the evening. Patient was vomiting earlier in the day, however it was previously non-bilious/non-bloody vomitus. Hospital Course: H/H dropped to 10.5 to 9.2. Pt underwent EGD which revealed non-bleeding esophageal ulcer, medium-sized hiatal hernia. Pt found to have + FOBT. No emergent bleeding was noted. Pt was started on carafate, reglan protonix. Upon Discharge: Pt is feeling better. VSS, Labs stable. Pt will be discharged to psychiatric unit. Pt counselled on lifestyle modification, medication compliance and outpatient followup. Discharge Exam - Head Exam Head Exam: ATRAUMATIC, NORMAL INSPECTION, NORMOCEPHALIC - Eye Exam Eye Exam: EOMI, Normal appearance - ENT Exam ENT Exam: Mucous Membranes Moist, Normal Exam - Neck Exam Neck exam: Normal Inspection - Respiratory Exam Respiratory Exam: NORMAL BREATHING PATTERN, UNREMARKABLE - Cardiovascular Exam Cardiovascular Exam: REGULAR RHYTHM, +S1, +S2 - GI/Abdominal Exam GI & Abdominal Exam: Soft. absent: Tenderness - Extremities Exam Extremities exam: normal inspection - Back Exam Back exam: NORMAL INSPECTION - Neurological Exam Neurological exam: Alert, Oriented x3 - Psychiatric Exam Psychiatric exam: Normal Affect, Normal Mood - Skin Skin Exam: Dry, Intact, Warm Discharge Plan - Follow Up Plan Condition: STABLE Disposition: DISCHARGE TO PSYCH HOSPITAL Instructions: Gastrointestinal Bleeding, Gastrointestinal Bleeding (DC) Additional Instructions: You will be transferred to the inpatient psychiatric unit Please continue your medications while in the psychiatric unit Please discuss your medications with the doctors that see you Please avoid aspirin, ibuprofen, naproxen or any other NSAIDs for the next 2 weeks If your symptoms return, or your experience new symptoms, please return to the nearest emergency room Referrals: Pelon Hendrickson MD [Staff Provider] - Megan Ross MD [Staff Provider] - <Kike Jackson - Last Filed: 09/22/18 10:47> Provider - Provider Date of Admission: 09/20/18 03:03 Attending physician: Kike Jackson MD Consults: 09/20/18 04:02 Gastroenterology Consult Routine Comment: Consulting Provider: Pelon Hendrickson Consulting Physician: Pelon Hendrickson Reason for Consult: GI bleed (lower) 09/20/18 04:03 Psychiatry Consult Routine Comment: Consulting Provider: Megan Ross Consulting Physician: Megan Ross Reason for Consult: Bipolar Disorder Hospital Course - Lab Results Lab Results: Micro Results 09/20/18 04:30 Blood Blood Culture - Preliminary NO GROWTH AFTER 48 HOURS Most Recent Lab Values WBC 12.0 10^3/uL (4.5-11.0) H 09/20/18 17:07 RBC 3.41 10^6/uL (3.5-6.1) L 09/20/18 17:07 Hgb 9.2 g/dL (14.0-18.0) L 09/20/18 17:07 Hct 28.4 % (42.0-52.0) L 09/20/18 17:07 MCV 83.3 fl (80.0-105.0) 09/20/18 17:07 MCH 27.0 pg (25.0-35.0) 09/20/18 17:07 MCHC 32.4 g/dl (31.0-37.0) 09/20/18 17:07 RDW 14.5 % (11.5-14.5) 09/20/18 17:07 Plt Count 371 10^3/uL (120.0-450.0) 09/20/18 17:07 MPV 9.2 fl (7.0-11.0) 09/20/18 17:07 Neut % (Auto) 55.4 % (50.0-68.0) 09/20/18 17:07 Lymph % (Auto) 31.1 % (22.0-35.0) 09/20/18 17:07 Moody % (Auto) 10.6 % (1.0-6.0) H 09/20/18 17:07 Eos % (Auto) 2.5 % (1.5-5.0) 09/20/18 17:07 Baso % (Auto) 0.4 % (0.0-3.0) 09/20/18 17:07 Lymph # (Auto) 3.7 (1.2-3.4) H 09/20/18 17:07 Moody # (Auto) 1.3 (0.1-0.6) H 09/20/18 17:07 Eos # (Auto) 0.3 (0.0-0.7) 09/20/18 17:07 Baso # (Auto) 0.05 K/mm3 (0.0-2.0) 09/20/18 17:07 Absolute Neuts (auto) 6.63 (1.4-6.5) H 09/20/18 17:07 PT 12.7 SECONDS (9.4-12.5) H 09/20/18 02:10 INR 1.14 09/20/18 02:10 APTT 30.9 Seconds (26.9-38.3) 09/20/18 02:10 Sodium 138 mmol/L (132-148) 09/21/18 06:00 Potassium 4.5 mmol/L (3.6-5.0) 09/21/18 06:00 Chloride 104 mmol/L (98-107) 09/21/18 06:00 Carbon Dioxide 26 mmol/L (21-33) 09/21/18 06:00 Anion Gap 13 (10-20) 09/21/18 06:00 BUN 20 mg/dL (7-21) 09/21/18 06:00 Creatinine 1.2 mg/dl (0.8-1.5) 09/21/18 06:00 Est GFR ( Amer) > 60 09/21/18 06:00 Est GFR (Non-Af Amer) > 60 09/21/18 06:00 POC Glucose (mg/dL) 99 mg/dL (65-110) 09/20/18 08:04 Random Glucose 83 mg/dL (70-110) 09/21/18 06:00 Calcium 9.1 mg/dL (8.4-10.5) 09/21/18 06:00 Phosphorus 3.9 mg/dL (2.5-4.5) 09/21/18 06:00 Magnesium 2.1 mg/dL (1.7-2.2) 09/20/18 06:20 Total Bilirubin 0.2 mg/dL (0.2-1.3) 09/21/18 06:00 AST 23 U/L (17-59) 09/21/18 06:00 ALT 20 U/L (7-56) 09/21/18 06:00 Alkaline Phosphatase 74 U/L (38-126) 09/21/18 06:00 Lactate Dehydrogenase 407 U/L (333-699) 09/20/18 02:10 Total Creatine Kinase 45 U/L (35-230) 09/20/18 02:10 Troponin I < 0.01 ng/mL 09/20/18 02:10 Total Protein 6.5 g/dL (5.8-8.3) 09/21/18 06:00 Albumin 3.3 g/dL (3.0-4.8) 09/21/18 06:00 Globulin 3.2 gm/dL 09/21/18 06:00 Albumin/Globulin Ratio 1.0 (1.1-1.8) L 09/21/18 06:00 Lipase 62 U/L (23-300) 09/20/18 02:10 Urine Color Straw (YELLOW) 09/20/18 03:59 Urine Appearance Clear (CLEAR) 09/20/18 03:59 Urine pH 7.0 (4.7-8.0) 09/20/18 03:59 Ur Specific [place] 1.015 (1.005-1.035) 09/20/18 03:59 Urine Protein Trace mg/dL (<30 mg/dL) H 09/20/18 03:59 Urine Glucose (UA) Negative mg/dL (NEGATIVE) 09/20/18 03:59 Urine Ketones Negative mg/dL (NEGATIVE) 09/20/18 03:59 Urine Blood Negative (NEGATIVE) 09/20/18 03:59 Urine Nitrate Negative (NEGATIVE) 09/20/18 03:59 Urine Bilirubin Negative (NEGATIVE) 09/20/18 03:59 Urine Urobilinogen 0.2 E.U./dL (<1 E.U./dL) 09/20/18 03:59 Ur Leukocyte Esterase Negative Keisha/uL (NEGATIVE) 09/20/18 03:59 Urine RBC None /hpf (0-2) 09/20/18 03:59 Urine WBC None /hpf (0-6) 09/20/18 03:59 Ur Epithelial Cells 3 - 4 /hpf (0-5) 09/20/18 03:59 Urine Bacteria Mod /hpf (NONE) 09/20/18 03:59 Urine Other Mucus /hpf 09/20/18 03:59 HIV 1&2 Antibody Screen Negative (NEGATIVE) 09/20/18 10:20 Blood Type O POSITIVE 09/20/18 02:10 Blood Type Confirm O POSITIVE 09/20/18 02:45 Antibody Screen Negative 09/20/18 02:10 BBK History Checked No verified bt 09/20/18 02:10 Attending/Attestation - Attestation I have personally seen and examined this patient.: Yes I have fully participated in the care of the patient.: Yes I have reviewed all pertinent clinical information, including history, physical exam and plan: Yes Notes (Text): 09/22/18 10:38 Attending note; Patient seen and examined with resident. Status post EGD yesterday currently denies any nausea, vomiting. Denies hematemesis or melena. Started on clear liquid diet and advanced as tolerated. 1. Status post upper GI bleed; patient had EGD yesterday. EGD showed superficial circumferential ulcer in the distal esophagus with petechiae. No active bleeding noted. Patient was n.p.o. and currently on IV Protonix drip. Biopsy taken. Case discussed with GI in detail. Started on clear liquid diet and advance as tolerated. 2. Active smoking; smoking cessation is strongly advised . Currently on NicoDerm patch . 3. Heroin abuse; drug abuse cessation is strongly advised. 4. Anxiety depression; continue psych medications per psychiatrist. 5. Urinary incontinence; resolved with timed voiding. UA is normal. No bladder distention noted. No significant post void residual. Patient refused blood work. Most likely secondary to psychiatric disorder and medication induced. Case discussed with psychiatrist in detail to reduce sedatives on antipsychotic medication. Patient is currently ambulating. No neurological deficit noted. Advised behavioral therapy. Advised timed voiding. Patient will be transferred to psychiatric floor today. Case discussed with Dr. Albright in detail. We will follow-up patient closely in psychiatric unit.
[2018-09-21] MEDS ORDERED: Pantoprazole 40 mg EC Tab PO SCH (16:00)
[2018-09-21 17:51] VITALS: BP 145/81; PULSE 86; RESP 20; TEMP 98.7
== END 2018-09-21 22:34 | DRG 243 ==
LOC: ED 01:28 → ERH 03:03 → 2RNO 10:05 → PSYC 09-21 21:43
PROVIDERS: ADMIT Internal Medicine; ATTEND Internal Medicine
PROC: 0DB68ZX Excision of Stomach, Via Natural or Artificial Opening Endoscopic, Diagnostic (ICD-10-PCS; 2018-09-20)
PROC: 0DB58ZX Excision of Esophagus, Via Natural or Artificial Opening Endoscopic, Diagnostic (ICD-10-PCS; principal; 2018-09-20 08:00)
DX: K22.10 Ulcer of esophagus without bleeding (principal); K92.0 Hematemesis; K26.9 Duodenal ulcer, unspecified as acute or chronic, without hemorrhage or perforation; I10 Essential (primary) hypertension; F31.9 Bipolar disorder, unspecified; K44.9 Diaphragmatic hernia without obstruction or gangrene; K29.50 Unspecified chronic gastritis without bleeding; F11.23 Opioid dependence with withdrawal; J45.909 Unspecified asthma, uncomplicated; F17.210 Nicotine dependence, cigarettes, uncomplicated; F41.8 Other specified anxiety disorders; K21.9 Gastro-esophageal reflux disease without esophagitis; R14.2 Eructation; Z91.14 Patient's other noncompliance with medication regimen; Z93.1 Gastrostomy status; Z59.0 Homelessness

== ENCOUNTER 2018-09-21 13:19 | Inpatient (IN) | payer MEDICAID, OTHER ==
[2018-09-21 22:55] VITALS: BMI 29.6
--- NOTE | 2018-09-21 23:33 | PCM.BM ---
<Bianca Arrieta - Last Filed: 09/21/18 23:31> Treatment Plan Problems - Problems identified on initial assessmt Altered thought pattern Date Initiated: 09/21/18 Time Initiated: 22:50 Assessment reference: NA Status: Active Treatment assets and liabiliti Patient Assests: cooperative <Jose RamonMeg - Last Filed: 09/22/18 09:21> - Diagnosis (1) Bipolar 1 disorder Status: Chronic Interventions: 09/22/18 09:21 group, milieu and supportive tx * Risperdal 0.25 HS increased to 0.5 mg AMHS for psychotic behaviors. Have discontinued reglan due to NMS risk (appreciate pharmacy and nurse input today) * Ativan 1 mg po TID (2) Polysubstance abuse Status: Chronic Interventions: group, milieu and supportive tx * Risperdal 0.25 HS increased to 0.5 mg AMHS for psychotic behaviors. Have discontinued reglan due to NMS risk (appreciate pharmacy and nurse input today) * Ativan 1 mg po TID 09/22/18 09:21 <Liz Gastelum - Last Filed: 09/23/18 16:35>
[2018-09-22] MEDS: Albuterol-Ipratrop 3 mg / 0.5 (3 ml) UD IH SCH ×4 (01:41→21:05)
[2018-09-22] MEDS ORDERED: Pantoprazole 20 mg EC Tab PO SCH (06:00)
[2018-09-22 07:10] VITALS: RESP 20
[2018-09-22 07:44] LABS: BASO # 0.07 K/mm3 (0.0-2.0); BASO % 0.6 % (0.0-3.0); EOS # 0.4 (0.0-0.7); EOS % 3.2 % (1.5-5.0); HEMOGLOBIN 9.1 g/dL (14.0-18.0); LYMPH # 2.7 (1.2-3.4); LYMPH % 22.8 % (22.0-35.0); MEAN CELL VOLUME 83.2 fl (80.0-105.0); MEAN CORPUSCULAR HEMOGLOBIN 26.8 pg (25.0-35.0); MEAN CORPUSCULAR HGB CONC 32.2 g/dl (31.0-37.0); MONO # 1.5 (0.1-0.6); MONO % 12.2 % (1.0-6.0); PLATELET COUNT 349 10^3/uL (120.0-450.0); RED CELL DISTRIBUTION WIDTH 14.3 % (11.5-14.5); WHITE BLOOD COUNT 11.9 10^3/uL (4.5-11.0)
[2018-09-22 09:02] LABS: BAND 1 % (0-2); BASOPHIL 1 % (0.0-1.0); EOSINOPHIL 3 % (0.0-3.0); LARGE PLATELETS PRESENT; LYMPHOCYTE 33 % (22.0-35.0); METAMYELOCYTE 3 %; MONOCYTE 8 % (1.0-6.0); MYELOCYTE 1 %; NEUTROPHIL 50 % (50.0-70.0); PLATELET ESTIMATE NORMAL (NORMAL)
--- NOTE | 2018-09-22 09:21 | PCM.PYCHPN ---
Psychiatric Progress Note - Psychiatric Progress Note Patient seen today, length of contact: 35 min Problems Identified/Issues Discussed: Patient was recently admitted to this unit from 09/11/18-09/20/18, then transferred to the medical floor 09/20/18-09/21/18 where he was monitored and evaluated for nausea and abdominal pain. He was consulted on by this provider on 09/21/18 and then transferred back to psychiatric on 09/21/18 after medical clearance. Please refer to Dr. Ross's admission note dated 09/12/18 for full assessment. ~~~~~~~~~~~~~~~~~~~~~~~~~~~~~~~~~ Patient is 57 year old homeless male, no known previous psych h/o, self reported h/o bipolar disorder, denied previous psych admissions, denied h/o suicidal attempts, who was brought in to the hospital for evaluation of depression, inability to function and "thoughts are not right.", passive wish to be with +drug use Patient presented as a poor historian with poor personal hygiene and + strong body odor. Noted to be disorganized and acting bizarre on the unit during first hospital course. Patient was incontinent of urine and feces with tendency of smearing feces on the wall. On 09/19/18, patient complained of indigestion and vomiting. Medical team was called, pt was transferred to the emergency room and subsequently to the medical floor for further evaluation and stabilization. Medical discharge note is provided below for easy referral: Medical floor 09/20/18-09/21/18 Upon Admission: 57-year-old M with a PMH significant for bipolar disorder, heroin abuse, depression, excessive eructation, poorly controlled asthma, GERD, previous PEG tube placement (unknown reason) s/p removal, bronchitis, and urinary incontinence who presents to the ED sent from behavioral health unit at [facility] due to episodes of ground-coffee emesis. Patient is a poor historian, thus, majority of the HPI is obtained from previous reports and chart review. Per Patient's nurse in behavioral health, Patient had 1 BM yesterday that was non-bloody. Patient also admits to having eaten a snack earlier in the evening. Patient was vomiting earlier in the day, however it was previously non-bilious/non-bloody vomitus. Hospital Course: H/H dropped to 10.5 to 9.2. Pt underwent EGD which revealed non-bleeding esophageal ulcer, medium-sized hiatal hernia. Pt found to have + FOBT. No emergent bleeding was noted. Pt was started on carafate, reglan protonix. ~~~~~~~~~~~~~~~~~~~~ Patient was interviewed at bedside this morning. Thus far he has been quiet without any behavioral issues. A little more responsive with my questioning this morning than yesterday but overall still preoccupied, withdrawn and guarded. He denies any new concerns, abdominal pain and nausea have remitted fro now. Oriented x3 and responses are brief and relevant to questioning. He quickly denies experiencing any hallucinations before I am able to finish the question. Will continue to monitor as patient is unknown to me. Diagnostic Results: Rule out bipolar disorder as per history Rule out substance-induced mood disorder Polysubstance abuse Medication Change: Yes (risperdal increased, reglan d/c'ed) Medical Record Reviewed: Yes Mental Status Examination - Cognitive Function Orientation: Person Memory: Impaired Attention: Poor Concentration: Poor Fund of Knowledge: Poor - Mood Mood: Neutral - Affect Affect: Constricted, Flat - Speech Speech: Soft - Formal Thought Process Formal Thought Process: Other (preoccupied and guarded) - Suicidal Ideation Suicidal Ideation: No - Homicidal Ideation Homicidal Ideation: No Goal/Treatment Plan - Goal/Treatment Plan Progress Toward Problem(s) and Goals/Treatment Plan: * group, milieu and supportive tx * Risperdal 0.25 HS increased to 0.5 mg AMHS for psychotic behaviors. Have discontinued reglan due to NMS risk (appreciate pharmacy and nurse input today) * Ativan 1 mg po TID, taper as tolerated * Nicoderm CQ for tobacco withdrawal * Vitals reviewed and noted below: 09/22/18 07:08 Temperature 98.2 F Pulse Rate 87 Respiratory 20 Rate Blood Pressure 119/79 * New labs noted below: Laboratory Results - last 24 hr 09/22/18 07:40 WBC 11.9 H RBC 3.40 L Hgb 9.1 L Hct 28.3 L MCV 83.2 MCH 26.8 MCHC 32.2 RDW 14.3 Plt Count 349 MPV 9.0 Neut % (Auto) 61.2 Lymph % (Auto) 22.8 [place] % (Auto) 12.2 H Eos % (Auto) 3.2 Baso % (Auto) 0.6 Lymph # (Auto) 2.7 [place] # (Auto) 1.5 H Eos # (Auto) 0.4 Baso # (Auto) 0.07 Absolute Neuts (auto) 7.30 H Neutrophils % (Manual) 50 Band Neutrophils % 1 Lymphocytes % (Manual) 33 Monocytes % (Manual) 8 H Eosinophils % (Manual) 3 Basophils % (Manual) 1 Metamyelocytes % 3 Myelocytes % 1 Platelet Evaluation Normal Large Platelets Present Estimated Date of D/C: 09/27/18 - Smoking Cessation Smoking Cessation Initiated: Yes
--- NOTE | 2018-09-22 12:21 | CP.PCM.CON ---
<Seb Hagen - Last Filed: 09/22/18 12:18> History of Present Illness - History of Present Illness History of Present Illness: CONSULT NOTE FOR HOSPITALIST SERVICE- DR. TYLER Hagen PGY1 57-year-old M with a PMH significant for bipolar disorder, heroin abuse, depression, excessive eructation, poorly controlled asthma, GERD, previous PEG tube placement (unknown reason) s/p removal, bronchitis, and urinary incontinence who presents to the ED sent from [place] [facility] [place] episodes of ground-coffee emesis. Patient is a poor historian, thus, majority of the HPI is obtained from previous reports and chart review. During hospital course, H/H dropped to 10.5 to 9.2. Pt underwent EGD which revealed non-bleeding esophageal ulcer, medium-sized hiatal hernia. Pt found to have + FOBT. No emergent bleeding was noted. Pt was started on carafate, reglan protonix. Overnight, pt hasn't had any nausea or vomiting. Upon interview this am, pt has flat affect, however is denying complaints. PMH: bipolar disorder, heroin abuse, excessive eructation, poorly controlled asthma, GERD, previous PEG tube placement (unknown reason) s/p removal, bronchitis, and urinary incontinence PSH: Patient denies Medications: MAR reviewed Allergies: Fish Social Hx: Admits to smoking 1/2 ppd x 6 months, admits to social EtOH use (1 drink on weekends), admits to heroin use last used day before yesterday (snorted) Family Hx: Unknown Review of Systems - Review of Systems Review of Systems: per HPI Past Patient History - Infectious Disease Hx of Infectious Diseases: None - Past Social History Smoking Status: Light Smoker < 10 Cigarettes Daily - CARDIAC Hx Hypertension: Yes (sometimes takes medication) - PULMONARY Hx Asthma: Yes - NEUROLOGICAL Hx Neurological Disorder: No - HEENT Hx HEENT Problems: No - RENAL Hx Chronic Kidney Disease: No - ENDOCRINE/METABOLIC Hx Endocrine Disorders: No - HEMATOLOGICAL/ONCOLOGICAL Hx Blood Transfusions: (UNKNOWN) Hx Blood Transfusion Reaction: (UNKNOWN) - INTEGUMENTARY Hx Dermatological Problems: No - MUSCULOSKELETAL/RHEUMATOLOGICAL Hx Falls: No - GASTROINTESTINAL Hx Gastrointestinal Disorders: No - GENITOURINARY/GYNECOLOGICAL Hx Genitourinary Disorders: No - PSYCHIATRIC Hx Substance Use: No - SURGICAL HISTORY Hx Surgeries: Yes - ANESTHESIA Hx Anesthesia Reactions: No Hx Malignant Hyperthermia: No Meds Allergies/Adverse Reactions: Allergies Allergy/AdvReac Type Severity Reaction Status Date / Time FISH Allergy ANAPHYLAXIS Verified 09/20/18 01:36 - Medications Medications: Current Medications Albuterol/Ipratropium (Duoneb 3 Mg/0.5 Mg (3 Ml) Ud) 3 ml IH [id number] [facility] Last Admin: 09/22/18 08:11 Dose: Not Given Lorazepam (Ativan) 1 mg PO TID PRN; Protocol PRN Reason: Agitation Nicotine (Nicoderm Cq) 1 patch TD DAILY DELMY Last Admin: 09/22/18 10:04 Dose: 1 patch Ondansetron HCl (Zofran Tab) 4 mg PO Q8H PRN PRN Reason: Nausea/Vomiting Pantoprazole Sodium (Protonix Ec Tab) 40 mg PO 0600,1600 DELMY Risperidone (Risperdal Tab) 0.5 mg PO AMHS [facility]; Protocol Last Admin: 09/22/18 10:05 Dose: 0.5 mg Physical Exam - Constitutional Appears: Well, Non-toxic, No Acute Distress - Head Exam Head Exam: NORMAL INSPECTION, NORMOCEPHALIC - Eye Exam Eye Exam: EOMI, Normal appearance - ENT Exam ENT Exam: Mucous Membranes Moist, Normal Exam - Neck Exam Neck exam: Positive for: Normal Inspection - Respiratory Exam Respiratory Exam: Clear to Auscultation Bilateral - Cardiovascular Exam Cardiovascular Exam: REGULAR RHYTHM, +S1, +S2 - GI/Abdominal Exam GI & Abdominal Exam: Soft. absent: Tenderness - Extremities Exam Extremities exam: Positive for: normal inspection. Negative for: calf tenderness - Back Exam Back exam: NORMAL INSPECTION - Neurological Exam Neurological exam: Alert, Oriented x3 - Psychiatric Exam Psychiatric exam: Normal Affect, Normal Mood - Skin Skin Exam: Dry, Intact, Warm Results - Vital Signs Recent Vital Signs: Last Vital Signs Temp 98.2 F 09/22/18 07:08 Pulse 87 09/22/18 07:08 Resp 20 09/22/18 07:08 BP 119/79 09/22/18 07:08 Pulse Ox - Labs Result Diagrams: 09/22/18 07:40 Labs: Laboratory Results - last 24 hr 09/22/18 07:40 WBC 11.9 H RBC 3.40 L Hgb 9.1 L Hct 28.3 L MCV 83.2 MCH 26.8 MCHC 32.2 RDW 14.3 Plt Count 349 MPV 9.0 Neut % (Auto) 61.2 Lymph % (Auto) 22.8 Leon % (Auto) 12.2 H Eos % (Auto) 3.2 Baso % (Auto) 0.6 Lymph # (Auto) 2.7 Leon # (Auto) 1.5 H Eos # (Auto) 0.4 Baso # (Auto) 0.07 Absolute Neuts (auto) 7.30 H Neutrophils % (Manual) 50 Band Neutrophils % 1 Lymphocytes % (Manual) 33 Monocytes % (Manual) 8 H Eosinophils % (Manual) 3 Basophils % (Manual) 1 Metamyelocytes % 3 Myelocytes % 1 Platelet Evaluation Normal Large Platelets Present Assessment & Plan - Assessment and Plan (Free Text) Assessment: 57 yo M with PMH significant for poorly controlled asthma, HTN, depression, bipolar disorder, previous PEG tube placement s/p removal, bronchitis, and urinary incontinence, who was originally admitted to psychiatric floor accompanied by home health care social worker for not feeling himself. While in the psychiatric unit, patient was vomiting excessively and on 09/20 in the morning, he was found to have ground coffee emesis. Pt is s/p EGD, denies n/v/hematemesis/melena & tolerating diet. Currently back in psychiatric unit Plan: Upper GI bleed s/p endoscopy - No active bleed noted on EGD w/ biopsy taken - No episodes of hematemsis/hematochezia overnight. No nausea, vomiting. Tolerating his diet - Hemodynamically stable Active Smoker - continue nicotine - counselled on cessation Heroin Abuse - counselled on abuse and cessation Depression/Anxiety - currently on risperidone - continue psych meds per primary team Urinary Incontinence - resolved with timed voids Dispo: Pt is feeling better. He reports no nausea/vomiting. He is tolerating his diet well. We will sign off for now. Please re-consult as necessary Case reviewed with attending physician, Dr. Tyler Hagen PGY1 <Kike Jackson - Last Filed: 09/22/18 15:26> Meds - Medications Medications: Current Medications Albuterol/Ipratropium (Duoneb 3 Mg/0.5 Mg (3 Ml) Ud) 3 ml IH [id number] [facility] Last Admin: 09/22/18 08:11 Dose: Not Given Lorazepam (Ativan) 1 mg PO TID PRN; Protocol PRN Reason: Agitation Nicotine (Nicoderm Cq) 1 patch TD DAILY DELMY Last Admin: 09/22/18 10:04 Dose: 1 patch Ondansetron HCl (Zofran Tab) 4 mg PO Q8H PRN PRN Reason: Nausea/Vomiting Pantoprazole Sodium (Protonix Ec Tab) 40 mg PO 0600,1600 DELMY Risperidone (Risperdal Tab) 0.5 mg PO AMHS DELMY; Protocol Last Admin: 09/22/18 10:05 Dose: 0.5 mg Sucralfate (Carafate Oral Susp) 1 gm PO 0630,1130,1630,2200 DELMY Results - Vital Signs Recent Vital Signs: Last Vital Signs Temp 98.2 F 09/22/18 07:08 Pulse 87 09/22/18 07:08 Resp 20 09/22/18 07:08 BP 119/79 09/22/18 07:08 Pulse Ox - Labs Result Diagrams: 09/22/18 07:40 Labs: Laboratory Results - last 24 hr 09/22/18 07:40 WBC 11.9 H RBC 3.40 L Hgb 9.1 L Hct 28.3 L MCV 83.2 MCH 26.8 MCHC 32.2 RDW 14.3 Plt Count 349 MPV 9.0 Neut % (Auto) 61.2 Lymph % (Auto) 22.8 Leon % (Auto) 12.2 H Eos % (Auto) 3.2 Baso % (Auto) 0.6 Lymph # (Auto) 2.7 Leon # (Auto) 1.5 H Eos # (Auto) 0.4 Baso # (Auto) 0.07 Absolute Neuts (auto) 7.30 H Neutrophils % (Manual) 50 Band Neutrophils % 1 Lymphocytes % (Manual) 33 Monocytes % (Manual) 8 H Eosinophils % (Manual) 3 Basophils % (Manual) 1 Metamyelocytes % 3 Myelocytes % 1 Platelet Evaluation Normal Large Platelets Present Attending/Attestation - Attestation I have personally seen and examined this patient.: Yes I have fully participated in the care of the patient.: Yes I have reviewed all pertinent clinical information: Yes Notes (Text): 09/22/18 15:20 Attending note; patient Seen and examined with resident in psychiatric unit. patient is alert and awake. Denies any complaints. Denies any chest pain, shortness of breath. Denies any abdominal pain. Denies any hematemesis, melena. Tolerating diet well. 1. Status post upper GI bleed; patient had EGD. EGD showed superficial circumferential ulcer in the distal esophagus with petechiae. No active bleeding noted. Continue Protonix and Carafate. Currently hemoglobin is stable at 9.1. 2. Active smoking; smoking cessation is strongly advised . Currently on NicoDerm patch . 3. Heroin abuse; drug abuse cessation is strongly advised. 4. Anxiety depression; continue psych medications per psychiatrist. 5. Severe belching; continue Zofran as needed for nausea. Case discussed with Dr. Albright in detail. Patient is medically stable. Please reconsult as needed.
[2018-09-22] MEDS: Pantoprazole 20 mg EC Tab PO SCH (15:54)
[2018-09-22] MEDS: Sucralfate 1 gm/10 ml Oral Susp UD PO SCH ×2 (15:54→21:22)
[2018-09-23] MEDS: Albuterol-Ipratrop 3 mg / 0.5 (3 ml) UD IH SCH ×4 (01:47→19:52)
[2018-09-23] MEDS: Pantoprazole 20 mg EC Tab PO SCH ×2 (06:52→17:44)
--- NOTE | 2018-09-23 08:26 | PCM.PYCHPN ---
Psychiatric Progress Note - Psychiatric Progress Note Patient seen today, length of contact: 35 min Problems Identified/Issues Discussed: Patient was recently admitted to this unit from 09/11/18-09/20/18, then transferred to the medical floor 09/20/18-09/21/18 where he was monitored and evaluated for nausea and abdominal pain. He was consulted on by this provider on 09/21/18 and then transferred back to psychiatric on 09/21/18 after medical clearance. Please refer to Dr. Ross's admission note dated 09/12/18 for full assessment. ~~~~~~~~~~~~~~~~~~~~~~~~~~~~~~~~~ Patient is 57 year old homeless male, no known previous psych h/o, self reported h/o bipolar disorder, denied previous psych admissions, denied h/o suicidal attempts, who was brought in to the hospital for evaluation of depression, inability to function and "thoughts are not right.", passive wish to be with +drug use Patient presented as a poor historian with poor personal hygiene and + strong body odor. Noted to be disorganized and acting bizarre on the unit during first hospital course. Patient was incontinent of urine and feces with tendency of smearing feces on the wall. On 09/19/18, patient complained of indigestion and vomiting. Medical team was called, pt was transferred to the emergency room and subsequently to the medical floor for further evaluation and stabilization. Medical discharge note is provided below for easy referral: Medical floor 09/20/18-09/21/18 Upon Admission: 57-year-old M with a PMH significant for bipolar disorder, heroin abuse, depression, excessive eructation, poorly controlled asthma, GERD, previous PEG tube placement (unknown reason) s/p removal, bronchitis, and urinary incontinence who presents to the ED sent from behavioral health unit at [facility] [place] due to episodes of ground-coffee emesis. Patient is a poor historian, thus, majority of the HPI is obtained from previous reports and chart review. Per Patient's nurse in behavioral health, Patient had 1 BM yesterday that was non-bloody. Patient also admits to having eaten a snack earlier in the evening. Patient was vomiting earlier in the day, however it was previously non-bilious/non-bloody vomitus. Hospital Course: H/H dropped to 10.5 to 9.2. Pt underwent EGD which revealed non-bleeding esophageal ulcer, medium-sized hiatal hernia. Pt found to have + FOBT. No emergent bleeding was noted. Pt was started on carafate, reglan protonix. ~~~~~~~~~~~~~~~~~~~~ PROGRESS NOTE 09/23/18 Patient was interviewed at bedside this morning. Thus far he has been quiet without any behavioral issues. A little more responsive with my questioning this morning than over the weekend but overall still preoccupied, withdrawn and guarded. Staff have also observed that patient is somewhat vaguely related and only talks to them when he needs to. +thought blocking noted. He also needed to be encouraged to shower after being incontinent of urine again on Sunday09/22/18. Appetite is good. Patient denies any new concerns. Abdominal pain and nausea have remitted x2 days. Oriented x3 and responses are brief and relevant to questioning. He continues to deny experiencing any hallucinations or paranoia. Will continue to monitor as patient is unknown to me. Considering diagnosis of schizophrenia with predominantly negative symptoms. Diagnostic Results: Rule out bipolar disorder as per history Rule out substance-induced mood disorder Polysubstance abuse Medication Change: Yes (risperdal increased, reglan d/c'ed) Medical Record Reviewed: Yes Mental Status Examination - Cognitive Function Orientation: Person, Place Memory: Impaired Attention: Poor Concentration: Poor Fund of Knowledge: Poor - Mood Mood: Neutral - Affect Affect: Constricted, Flat - Speech Speech: Soft - Formal Thought Process Formal Thought Process: Other (preoccupied and guarded) - Suicidal Ideation Suicidal Ideation: No - Homicidal Ideation Homicidal Ideation: No Goal/Treatment Plan - Goal/Treatment Plan Progress Toward Problem(s) and Goals/Treatment Plan: * group, milieu and supportive tx * Appreciate f/u by Dr. Jackson/Dr. Hagen on 09/22/18~Pt is feeling better. He reports no nausea/vomiting. He is tolerating his diet well. We will sign off for now. Please re-consult as necessary * Risperdal 0.25 HS increased to 0.5 mg AMHS for psychotic behaviors on 09/22/18. Have discontinued reglan due to NMS risk (appreciate pharmacy and nurse input on 09/22/18) * Ativan 1 mg po TID, taper as tolerated * Nicoderm CQ for tobacco withdrawal * Vitals reviewed and noted below: Selected Entries 09/22/18 09/22/18 07:08 16:15 Temperature 98.2 F Pulse Rate 87 86 Respiratory 20 Rate Blood Pressure 119/79 112/79 * New labs noted below: Laboratory Results - last 24 hr 09/22/18 07:40 WBC 11.9 H RBC 3.40 L Hgb 9.1 L Hct 28.3 L MCV 83.2 MCH 26.8 MCHC 32.2 RDW 14.3 Plt Count 349 MPV 9.0 Neut % (Auto) 61.2 Lymph % (Auto) 22.8 [place] % (Auto) 12.2 H Eos % (Auto) 3.2 Baso % (Auto) 0.6 Lymph # (Auto) 2.7 [place] # (Auto) 1.5 H Eos # (Auto) 0.4 Baso # (Auto) 0.07 Absolute Neuts (auto) 7.30 H Neutrophils % (Manual) 50 Band Neutrophils % 1 Lymphocytes % (Manual) 33 Monocytes % (Manual) 8 H Eosinophils % (Manual) 3 Basophils % (Manual) 1 Metamyelocytes % 3 Myelocytes % 1 Platelet Evaluation Normal Large Platelets Present Estimated Date of D/C: 09/27/18
[2018-09-23] MEDS: Sucralfate 1 gm/10 ml Oral Susp UD PO SCH ×4 (09:06→21:27)
[2018-09-24] MEDS: Albuterol-Ipratrop 3 mg / 0.5 (3 ml) UD IH SCH ×4 (01:40→21:22)
[2018-09-24] MEDS: Pantoprazole 20 mg EC Tab PO SCH ×2 (06:26→17:55)
[2018-09-24] MEDS: Sucralfate 1 gm/10 ml Oral Susp UD PO SCH ×4 (06:26→21:30)
--- NOTE | 2018-09-24 08:00 | PCM.PYCHPN ---
Psychiatric Progress Note - Psychiatric Progress Note Patient seen today, length of contact: 35 min Problems Identified/Issues Discussed: Patient was recently admitted to this unit from 09/11/18-09/20/18, then transferred to the medical floor 09/20/18-09/21/18 where he was monitored and evaluated for nausea and abdominal pain. He was consulted on by this provider on 09/21/18 and then transferred back to psychiatric on 09/21/18 after medical clearance. Please refer to Dr. Ross's admission note dated 09/12/18 for full assessment. ~~~~~~~~~~~~~~~~~~~~~~~~~~~~~~~~~ Patient is 57 year old homeless male, no known previous psych h/o, self reported h/o bipolar disorder, denied previous psych admissions, denied h/o suicidal attempts, who was brought in to the hospital for evaluation of depression, inability to function and "thoughts are not right.", passive wish to be with +drug use Patient presented as a poor historian with poor personal hygiene and + strong body odor. Noted to be disorganized and acting bizarre on the unit during first hospital course. Patient was incontinent of urine and feces with tendency of smearing feces on the wall. On 09/19/18, patient complained of indigestion and vomiting. Medical team was called, pt was transferred to the emergency room and subsequently to the medical floor for further evaluation and stabilization. Medical discharge note is provided below for easy referral: Medical floor 09/20/18-09/21/18 Upon Admission: 57-year-old M with a PMH significant for bipolar disorder, heroin abuse, depression, excessive eructation, poorly controlled asthma, GERD, previous PEG tube placement (unknown reason) s/p removal, bronchitis, and urinary incontinence who presents to the ED [place] [facility] [place] of [place]-coffee emesis. Patient is a poor historian, thus, majority of the HPI is obtained from previous reports and chart review. Per Patient's nurse in behavioral health, Patient had 1 BM yesterday that was non-bloody. Patient also admits to having eaten a snack earlier in the evening. Patient was vomiting earlier in the day, however it was previously non-bilious/non-bloody vomitus. Hospital Course: H/H dropped to 10.5 to 9.2. Pt underwent EGD which revealed non-bleeding esophageal ulcer, medium-sized hiatal hernia. Pt found to have + FOBT. No emergent bleeding was noted. Pt was started on carafate, reglan protonix. ~~~~~~~~~~~~~~~~~~~~ PROGRESS NOTE 09/24/18 Patient was interviewed at bedside this morning with medical student Dr. Martin. Patient continues to present as quiet, preoccupied and disengaged during questioning. There have been no incidents of aggression/agitation on the unit however patient remains vaguely related and guarded. Affect is blankenship and brusque. He responds only because it is required and it is without elaboration. +thought blocking noted. He also needed to be encouraged to shower after being incontinent of urine again on Sunday09/22/18. Grooming is unkempt today. Nonetheless patient is oriented x3, appetite is good and sleep is good. Patient denies any new concerns. Abdominal pain and nausea have remitted x3 days. He continues to deny experiencing any hallucinations or paranoia. Delusions were not elicited. Considering diagnosis of schizophrenia with predominantly negative symptoms. Diagnostic Results: Rule out bipolar disorder as per history Rule out substance-induced mood disorder Polysubstance abuse Medication Change: Yes (ativan decreased) Medical Record Reviewed: Yes Mental Status Examination - Cognitive Function Orientation: Person, Place Memory: Impaired Attention: Poor Concentration: Poor Fund of Knowledge: Poor - Mood Mood: Neutral - Affect Affect: Constricted, Flat - Speech Speech: Soft - Formal Thought Process Formal Thought Process: Other (preoccupied and guarded) - Suicidal Ideation Suicidal Ideation: No - Homicidal Ideation Homicidal Ideation: No Goal/Treatment Plan - Goal/Treatment Plan Progress Toward Problem(s) and Goals/Treatment Plan: * group, milieu and supportive tx * Appreciate f/u by Dr. Jackson/Dr. Hagen on 09/22/18~Pt is feeling better. He reports no nausea/vomiting. He is tolerating his diet well. We will sign off for now. Please re-consult as necessary * Risperdal 0.25 HS increased to 0.5 mg AMHS for psychotic behaviors on 09/22/18. Have discontinued reglan due to NMS risk (appreciate pharmacy and nurse input on 09/22/18) * Ativan 1 mg po TID decreased to 1mg AMHS on 09/24/18, continue taper as tolerated * Nicoderm CQ for tobacco withdrawal * Consider naltrexone to help patient with sobriety however patient doesn't appear motivated to address his substance use at all * Vitals reviewed and noted below: Selected Entries 09/23/18 09/23/18 07:18 16:00 Temperature 97.4 F L Pulse Rate 81 102 H Respiratory 20 Rate Blood Pressure 112/73 143/80 * New labs noted below: Laboratory Results - last 24 hr 09/22/18 07:40 WBC 11.9 H RBC 3.40 L Hgb 9.1 L Hct 28.3 L MCV 83.2 MCH 26.8 MCHC 32.2 RDW 14.3 Plt Count 349 MPV 9.0 Neut % (Auto) 61.2 Lymph % (Auto) 22.8 [place] % (Auto) 12.2 H Eos % (Auto) 3.2 Baso % (Auto) 0.6 Lymph # (Auto) 2.7 [place] # (Auto) 1.5 H Eos # (Auto) 0.4 Baso # (Auto) 0.07 Absolute Neuts (auto) 7.30 H Neutrophils % (Manual) 50 Band Neutrophils % 1 Lymphocytes % (Manual) 33 Monocytes % (Manual) 8 H Eosinophils % (Manual) 3 Basophils % (Manual) 1 Metamyelocytes % 3 Myelocytes % 1 Platelet Evaluation Normal Large Platelets Present Estimated Date of D/C: 09/27/18
[2018-09-25] MEDS: Pantoprazole 20 mg EC Tab PO SCH ×2 (06:38→17:55)
[2018-09-25] MEDS: Sucralfate 1 gm/10 ml Oral Susp UD PO SCH ×4 (06:38→21:21)
--- NOTE | 2018-09-25 11:07 | PCM.PYCHPN ---
Psychiatric Progress Note - Psychiatric Progress Note Patient seen today, length of contact: 35 min Problems Identified/Issues Discussed: Patient was recently admitted to this unit from 09/11/18-09/20/18, then transferred to the medical floor 09/20/18-09/21/18 where he was monitored and evaluated for nausea and abdominal pain. He was consulted on by this provider on 09/21/18 and then transferred back to psychiatric on 09/21/18 after medical clearance. Please refer to Dr. Ross's admission note dated 09/12/18 for full assessment. ~~~~~~~~~~~~~~~~~~~~~~~~~~~~~~~~~ Patient is 57 year old homeless male, no known previous psych h/o, self reported h/o bipolar disorder, denied previous psych admissions, denied h/o suicidal attempts, who was brought in to the hospital for evaluation of depression, inability to function and "thoughts are not right.", passive wish to be with +drug use Patient presented as a poor historian with poor personal hygiene and + strong body odor. Noted to be disorganized and acting bizarre on the unit during first hospital course. Patient was incontinent of urine and feces with tendency of smearing feces on the wall. On 09/19/18, patient complained of indigestion and vomiting. Medical team was called, pt was transferred to the emergency room and subsequently to the medical floor for further evaluation and stabilization. Medical discharge note is provided below for easy referral: Medical floor 09/20/18-09/21/18 Upon Admission: 57-year-old M with a PMH significant for bipolar disorder, heroin abuse, depression, excessive eructation, poorly controlled asthma, GERD, previous PEG tube placement (unknown reason) s/p removal, bronchitis, and urinary incontinence who presents to the ED sent from behavioral health unit at [facility] [place] due to episodes of ground-coffee emesis. Patient is a poor historian, thus, majority of the HPI is obtained from previous reports and chart review. Per Patient's nurse in behavioral health, Patient had 1 BM yesterday that was non-bloody. Patient also admits to having eaten a snack earlier in the evening. Patient was vomiting earlier in the day, however it was previously non-bilious/non-bloody vomitus. Hospital Course: H/H dropped to 10.5 to 9.2. Pt underwent EGD which revealed non-bleeding esophageal ulcer, medium-sized hiatal hernia. Pt found to have + FOBT. No emergent bleeding was noted. Pt was started on carafate, reglan protonix. ~~~~~~~~~~~~~~~~~~~~ PROGRESS NOTE 09/25/18 Patient was interviewed at bedside again this morning. Patient continues to present as quiet, preoccupied and disengaged during questioning. There have been no incidents of aggression/agitation on the unit however patient remains vaguely related and guarded.He really doesn't like to talk to me or the staff. He responds only because it is required and it is without elaboration. He also needed to be encouraged to shower after being incontinent of urine again on Sunday09/22/18 and Sunday09/23/18. Grooming is unkempt today. Nonetheless patient is oriented x3, appetite is good and sleep is good. Patient denies any new concerns. Abdominal pain and nausea have remitted x4 days. He continues to deny experiencing any hallucinations or paranoia. Delusions were not elicited. Patient is requesting discharge tomorrow. There is no acute indication that he is a danger to himself or others so this provider spoke with SW and are working to accommodate his request. Diagnostic Results: Rule out bipolar disorder as per history Rule out substance-induced mood disorder Polysubstance abuse Medication Change: Yes (ativan discontinued, patient only on prns now) Medical Record Reviewed: Yes Mental Status Examination - Cognitive Function Orientation: Person, Place, Situation Memory: Impaired Attention: WNL Concentration: Poor Fund of Knowledge: Poor - Mood Mood: Neutral - Affect Affect: Constricted, Flat - Speech Speech: Soft - Formal Thought Process Formal Thought Process: No Impairment (He denies perceptual disturbance), Other (preoccupied and guarded) - Suicidal Ideation Suicidal Ideation: No - Homicidal Ideation Homicidal Ideation: No Goal/Treatment Plan - Goal/Treatment Plan Progress Toward Problem(s) and Goals/Treatment Plan: * group, milieu and supportive tx * Appreciate f/u by Dr. Jackson/Dr. Hagen on 09/22/18~Pt is feeling better. He reports no nausea/vomiting. He is tolerating his diet well. We will sign off for now. Please re-consult as necessary * Risperdal 0.25 HS increased to 0.5 mg AMHS for psychotic behaviors on 09/22/18. Have discontinued reglan due to NMS risk (appreciate pharmacy and nurse input on 09/22/18) * Ativan 1mg AMHS d/c'ed on 09/25/18, patient only provided prns at this time * Nicoderm CQ for tobacco withdrawal * Consider naltrexone to help patient with sobriety however patient doesn't appear motivated to address his substance use at all * D/C planned for 09/26/18 per patient request. * Vitals reviewed and noted below: Selected Entries 09/23/18 09/23/18 09/24/18 07:18 16:00 07:00 Temperature 97.4 F L 97.9 F Pulse Rate 81 102 H 86 Respiratory 20 Rate Blood Pressure 112/73 143/80 Blood Pressure Mean 09/24/18 16:00 Temperature Pulse Rate 86 Respiratory Rate Blood Pressure 107/68 Blood Pressure 81 Mean * New labs noted below: Laboratory Results - last 24 hr 09/22/18 07:40 WBC 11.9 H RBC 3.40 L Hgb 9.1 L Hct 28.3 L MCV 83.2 MCH 26.8 MCHC 32.2 RDW 14.3 Plt Count 349 MPV 9.0 Neut % (Auto) 61.2 Lymph % (Auto) 22.8 [place] % (Auto) 12.2 H Eos % (Auto) 3.2 Baso % (Auto) 0.6 Lymph # (Auto) 2.7 [place] # (Auto) 1.5 H Eos # (Auto) 0.4 Baso # (Auto) 0.07 Absolute Neuts (auto) 7.30 H Neutrophils % (Manual) 50 Band Neutrophils % 1 Lymphocytes % (Manual) 33 Monocytes % (Manual) 8 H Eosinophils % (Manual) 3 Basophils % (Manual) 1 Metamyelocytes % 3 Myelocytes % 1 Platelet Evaluation Normal Large Platelets Present Estimated Date of D/C: 09/27/18
[2018-09-25] MEDS: Albuterol-Ipratrop 3 mg / 0.5 (3 ml) UD IH SCH ×3 (11:31→21:50)
[2018-09-26] MEDS: Albuterol-Ipratrop 3 mg / 0.5 (3 ml) UD IH SCH ×3 (02:49→22:19)
[2018-09-26] MEDS: Pantoprazole 20 mg EC Tab PO SCH ×2 (06:42→16:19)
[2018-09-26] MEDS: Sucralfate 1 gm/10 ml Oral Susp UD PO SCH ×4 (06:42→21:39)
--- NOTE | 2018-09-26 10:33 | PCM.PYCHDC ---
Mental Status Examination - Mental Status Examination Orientation: Person, Place, Situation Memory: Intact Mood: Neutral Affect: Broad Speech: Appropriate Attention: WNL Concentration: WNL Association: WNL Fund of Knowledge: WNL Formal Thought Process: No Impairment Description of patient's judgement and insight: Improved and fair i/j Psychotic Thoughts and Behaviors: Denies hallucinations or paranoia. No delusions elicited Suicidal Ideation: No Current Homicidal Ideation?: No Discharge Summary - Discharge Note Reason for Hospitalization: Patient was recently admitted to this unit from 09/11/18-09/20/18, then transferred to the medical floor 09/20/18-09/21/18 where he was monitored and evaluated for nausea and abdominal pain. He was consulted on by this provider on 09/21/18 and then transferred back to psychiatric on 09/21/18 after medical clearance. Please refer to Dr. Ross's admission note dated 09/12/18 for full assessment. ~~~~~~~~~~~~~~~~~~~~~~~~~~~~~~~~~ Patient is 57 year old homeless male, no known previous psych h/o, self reported h/o bipolar disorder, denied previous psych admissions, denied h/o suicidal attempts, who was brought in to the hospital for evaluation of depression, inability to function and "thoughts are not right.", passive wish to be with +drug use Laboratory Data: Laboratory Tests 09/22/18 07:40 WBC 11.9 H RBC 3.40 L Hgb 9.1 L Hct 28.3 L MCV 83.2 MCH 26.8 MCHC 32.2 RDW 14.3 Plt Count 349 MPV 9.0 Neut % (Auto) 61.2 Lymph % (Auto) 22.8 [place] % (Auto) 12.2 H Eos % (Auto) 3.2 Baso % (Auto) 0.6 Lymph # (Auto) 2.7 [place] # (Auto) 1.5 H Eos # (Auto) 0.4 Baso # (Auto) 0.07 Absolute Neuts (auto) 7.30 H Neutrophils % (Manual) 50 Band Neutrophils % 1 Lymphocytes % (Manual) 33 Monocytes % (Manual) 8 H Eosinophils % (Manual) 3 Basophils % (Manual) 1 Metamyelocytes % 3 Myelocytes % 1 Platelet Evaluation Normal Large Platelets Present Consultations:: List each consultation separately and include: 1. Reason for request. 2. Findings. 3. Follow-up Consultations: DR. SCOTT 09/22/18 Summary of Hospital Course include:: 1. Description of specific treatment plan utilized for patients during their course of treatmen. 2. Summarize the time- course for resolution of acute symptoms and/or regressed behaviors. 3. Describe issues identified and worked on during hospitalization. 4. Describe medication utilized. 5. Describe medical problems identified and treated. 6. Reassessment of suicide risk Summary of Hospital Course: Patient was recently admitted to this unit from 09/11/18-09/20/18, then transferred to the medical floor 09/20/18-09/21/18 where he was monitored and eval uated for nausea and abdominal pain. He was consulted on by this provider on 09/21/18 and then transferred back to psychiatric on 09/21/18 after medical clearance. Please refer to Dr. Ross's admission note dated 09/12/18 for full assessment. ~~~~~~~~~~~~~~~~~~~~~~~~~~~~~~~~~ Patient is 57 year old homeless male, no known previous psych h/o, self reported h/o bipolar disorder, denied previous psych admissions, denied h/o suicidal attempts, who was brought in to the hospital for evaluation of depression, inability to function and "thoughts are not right.", passive wish to be with +drug use Patient presented as a poor historian with poor personal hygiene and + strong body odor. Noted to be disorganized and acting bizarre on the unit during first hospital course. Patient was incontinent of urine and feces with tendency of smearing feces on the wall. On 09/19/18, patient complained of indigestion and vomiting. Medical team was called, pt was transferred to the emergency room and subsequently to the medical floor for further evaluation and stabilization. Medical discharge note is provided below for easy referral: Medical floor 09/20/18-09/21/18 Upon Admission: 57-year-old M with a PMH significant for bipolar disorder, heroin abuse, depression, excessive eructation, poorly controlled asthma, GERD, previous PEG tube placement (unknown reason) s/p removal, bronchitis, and urinary incontinence who presents to the ED sent from behavioral health unit at [facility] [place] due to episodes of ground-coffee emesis. Patient is a poor historian, thus, majority of the HPI is obtained from previous reports and chart review. Per Patient's nurse in behavioral health, Patient had 1 BM yesterday that was non-bloody. Patient also admits to having eaten a snack earlier in the evening. Patient was vomiting earlier in the day, however it was previously non-bilious/non-bloody vomitus. Hospital Course: H/H dropped to 10.5 to 9.2. Pt underwent EGD which revealed non-bleeding esophageal ulcer, medium-sized hiatal hernia. Pt found to have + FOBT. No emergent bleeding was noted. Pt was started on carafate, reglan protonix. ~~~~~~~~~~~~~~~~~~~~ PROGRESS NOTE 09/26/18 Patient was interviewed at bedside again this morning. Patient continues to present as quiet, preoccupied and disengaged during questioning. There have been no incidents of aggression/agitation on the unit however patient remains vaguely related and guarded.He really doesn't like to talk to me or the staff. He responds only because it is required and it is without elaboration. ' Nonetheless patient is oriented x3, appetite is good and sleep is good. Patient denies any new concerns. Abdominal pain and nausea have remitted x5 days. He continues to deny experiencing any hallucinations or paranoia. Delusions were not elicited. Patient is requesting discharge today. There is no acute indication that he is a danger to himself or others so this request was accommodated. - Diagnosis (1) Bipolar 1 disorder Current Visit: No Status: Chronic (2) Polysubstance abuse Current Visit: No Status: Chronic - Final Diagnosis (DSM 5) Condition upon Discharge: FAIR DSM 5: Rule out bipolar disorder as per history Rule out substance-induced mood disorder Polysubstance abuse R/O [place] Disposition: HOME/ ROUTINE Follow-up Treatment Plan: PLEASE REFER TO SOCIAL WORK NOTE FOR DISPOSITION THE FOLLOWING MEDICATIONS WERE AUTHORIZED AT [facility], 30 DAYS, NO RF ON 09/26/18 AT 10:30 AM * Risperdal 0.5 mg AMHS * Nicoderm CQ 21mg for tobacco withdrawal * Patient deferred on naltrexone to help with sobriety (patient never appeared motivated to address his substance use at all during admission) Laboratory Results - last 24 hr 09/22/18 07:40 WBC 11.9 H RBC 3.40 L Hgb 9.1 L Hct 28.3 L MCV 83.2 MCH 26.8 MCHC 32.2 RDW 14.3 Plt Count 349 MPV 9.0 Neut % (Auto) 61.2 Lymph % (Auto) 22.8 [place] % (Auto) 12.2 H Eos % (Auto) 3.2 Baso % (Auto) 0.6 Lymph # (Auto) 2.7 [place] # (Auto) 1.5 H Eos # (Auto) 0.4 Baso # (Auto) 0.07 Absolute Neuts (auto) 7.30 H Neutrophils % (Manual) 50 Band Neutrophils % 1 Lymphocytes % (Manual) 33 Monocytes % (Manual) 8 H Eosinophils % (Manual) 3 Basophils % (Manual) 1 Metamyelocytes % 3 Myelocytes % 1 Platelet Evaluation Normal Large Platelets Present - Smoking Cessation Smoking Cessation Medication prescribed: Yes - Antipsychotic Medications Pt discharged on 2 or more routine antipsychotic medications: No
[2018-09-27] MEDS: Pantoprazole 20 mg EC Tab PO SCH (06:09)
[2018-09-27] MEDS: Sucralfate 1 gm/10 ml Oral Susp UD PO SCH ×2 (06:10→11:30)
[2018-09-27 07:12] VITALS: BP 112/72; PULSE 87; TEMP 98.2
[2018-09-27] MEDS: Albuterol-Ipratrop 3 mg / 0.5 (3 ml) UD IH SCH (08:52)
--- NOTE | 2018-09-27 15:58 | PCM.PYCHDC ---
Mental Status Examination - Mental Status Examination Orientation: Person, Place, Situation, Time Memory: Intact Mood: Neutral Affect: Broad Speech: Appropriate Attention: WNL Concentration: WNL Association: WNL Fund of Knowledge: WNL Formal Thought Process: No Impairment Description of patient's judgement and insight: Improved and fair i/j Psychotic Thoughts and Behaviors: Denies hallucinations or paranoia. No delusions elicited Suicidal Ideation: No Current Homicidal Ideation?: No Discharge Summary - Discharge Note Reason for Hospitalization: Patient was recently admitted to this unit from 09/11/18-09/20/18, then transferred to the medical floor 09/20/18-09/21/18 where he was monitored and evaluated for nausea and abdominal pain. He was consulted on by this provider on 09/21/18 and then transferred back to psychiatric on 09/21/18 after medical clearance. Please refer to Dr. Ross's admission note dated 09/12/18 for full assessment. ~~~~~~~~~~~~~~~~~~~~~~~~~~~~~~~~~ Patient is 57 year old homeless male, no known previous psych h/o, self reported h/o bipolar disorder, denied previous psych admissions, denied h/o suicidal attempts, who was brought in to the hospital for evaluation of depression, inability to function and "thoughts are not right.", passive wish to be with +drug use Psychiatric History (includes Medical, Family, Personal Hx): see hpi Laboratory Data: Laboratory Tests 09/22/18 07:40 WBC 11.9 H RBC 3.40 L Hgb 9.1 L Hct 28.3 L MCV 83.2 MCH 26.8 MCHC 32.2 RDW 14.3 Plt Count 349 MPV 9.0 Neut % (Auto) 61.2 Lymph % (Auto) 22.8 [place] % (Auto) 12.2 H Eos % (Auto) 3.2 Baso % (Auto) 0.6 Lymph # (Auto) 2.7 [place] # (Auto) 1.5 H Eos # (Auto) 0.4 Baso # (Auto) 0.07 Absolute Neuts (auto) 7.30 H Neutrophils % (Manual) 50 Band Neutrophils % 1 Lymphocytes % (Manual) 33 Monocytes % (Manual) 8 H Eosinophils % (Manual) 3 Basophils % (Manual) 1 Metamyelocytes % 3 Myelocytes % 1 Platelet Evaluation Normal Large Platelets Present Consultations:: List each consultation separately and include: 1. Reason for request. 2. Findings. 3. Follow-up Consultations: DR. SCOTT 09/22/18 Summary of Hospital Course include:: 1. Description of specific treatment plan utilized for patients during their course of treatmen. 2. Summarize the time- course for resolution of acute symptoms and/or regressed behaviors. 3. Describe issues identified and worked on during hospitalization. 4. Describe medication utilized. 5. Describe medical problems identified and treated. 6. Reassessment of suicide risk Summary of Hospital Course: Patient was recently admitted to this unit from 09/11/18-09/20/18, then transferred to the medical floor 09/20/18-09/21/18 where he was monitored and evaluated for nausea and abdominal pain. He was consulted on by this provider on 09/21/18 and then transferred back to psychiatric on 09/21/18 after medical clearance. Please refer to Dr. Ross's admission note dated 09/12/18 for full assessment. ~~~~~~~~~~~~~~~~~~~~~~~~~~~~~~~~~ Patient is 57 year old homeless male, no known previous psych h/o, self reported h/o bipolar disorder, denied previous psych admissions, denied h/o suicidal attempts, who was brought in to the hospital for evaluation of depression, inability to function and "thoughts are not right.", passive wish to be with +drug use Patient presented as a poor historian with poor personal hygiene and + strong body odor. Noted to be disorganized and acting bizarre on the unit during first hospital course. Patient was incontinent of urine and feces with tendency of smearing feces on the wall. On 09/19/18, patient complained of indigestion and vomiting. Medical team was called, pt was transferred to the emergency room and subsequently to the medical floor for further evaluation and stabilization. Medical discharge note is provided below for easy referral: Medical floor 09/20/18-09/21/18 Upon Admission: 57-year-old M with a PMH significant for bipolar disorder, heroin abuse, depression, excessive eructation, poorly controlled asthma, GERD, previous PEG tube placement (unknown reason) s/p removal, bronchitis, and urinary incontinence who presents to the ED sent from behavioral health unit at [facility] [place] due to episodes of ground-coffee emesis. Patient is a poor historian, thus, majority of the HPI is obtained from previous reports and chart review. Per Patient's nurse in behavioral health, Patient had 1 BM yesterday that was non-bloody. Patient also admits to having eaten a snack earlier in the evening. Patient was vomiting earlier in the day, however it was previously non-bilious/non-bloody vomitus. Hospital Course: H/H dropped to 10.5 to 9.2. Pt underwent EGD which revealed non-bleeding esophageal ulcer, medium-sized hiatal hernia. Pt found to have + FOBT. No emergent bleeding was noted. Pt was started on carafate, reglan protonix. ~~~~~~~~~~~~~~~~~~~~ PROGRESS AND DISCHARGE NOTE 09/27/18 Patient was interviewed at bedside again this morning. Patient continues to present as quiet, preoccupied and disengaged during questioning. There have been no incidents of aggression/agitation on the unit however patient remains vaguely related and guarded.He really doesn't like to talk to me or the staff. He responds only because it is required and it is without elaboration. ' Nonetheless patient is oriented x3, appetite is good and sleep is good. Patient denies any new concerns. Abdominal pain and nausea have remitted x5 days. He continues to deny experiencing any hallucinations or paranoia. Delusions were not elicited. Patient is requesting discharge today. There is no acute indication that he is a danger to himself or others so this request was accommodated. - Diagnosis (1) Bipolar 1 disorder Status: Chronic (2) Polysubstance abuse Status: Chronic - Final Diagnosis (DSM 5) Condition upon Discharge: FAIR DSM 5: Rule out bipolar disorder as per history Rule out substance-induced mood disorder Polysubstance abuse Disposition: HOME/ ROUTINE Follow-up Treatment Plan: PATIENT IS STABLE FOR DISCHARGE/ PLEASE REFER TO SOCIAL WORK NOTE FOR DISPOSITION THE FOLLOWING MEDICATIONS WERE AUTHORIZED AT [facility], 30 DAYS, NO RF ON 09/26/18 AT 10:30 AM * Risperdal 0.5 mg AMHS * Nicoderm CQ 21mg for tobacco withdrawal * Patient deferred on naltrexone to help with sobriety (patient never appeared motivated to address his substance use at all during admission) Laboratory Results - last 24 hr 09/22/18 07:40 WBC 11.9 H RBC 3.40 L Hgb 9.1 L Hct 28.3 L MCV 83.2 MCH 26.8 MCHC 32.2 RDW 14.3 Plt Count 349 MPV 9.0 Neut % (Auto) 61.2 Lymph % (Auto) 22.8 [place] % (Auto) 12.2 H Eos % (Auto) 3.2 Baso % (Auto) 0.6 Lymph # (Auto) 2.7 [place] # (Auto) 1.5 H Eos # (Auto) 0.4 Baso # (Auto) 0.07 Absolute Neuts (auto) 7.30 H Neutrophils % (Manual) 50 Band Neutrophils % 1 Lymphocytes % (Manual) 33 Monocytes % (Manual) 8 H Eosinophils % (Manual) 3 Basophils % (Manual) 1 Metamyelocytes % 3 Myelocytes % 1 Platelet Evaluation Normal Large Platelets Present - Smoking Cessation Smoking Cessation Medication prescribed: Yes - Antipsychotic Medications Pt discharged on 2 or more routine antipsychotic medications: No
--- NOTE | 2018-09-27 16:00 | PCM.PYCHPN ---
Psychiatric Progress Note - Psychiatric Progress Note Patient seen today, length of contact: 25 min Problems Identified/Issues Discussed: Patient was recently admitted to this unit from 09/11/18-09/20/18, then transferred to the medical floor 09/20/18-09/21/18 where he was monitored and evaluated for nausea and abdominal pain. He was consulted on by this provider on 09/21/18 and then transferred back to psychiatric on 09/21/18 after medical clearance. Please refer to Dr. Ross's admission note dated 09/12/18 for full assessment. ~~~~~~~~~~~~~~~~~~~~~~~~~~~~~~~~~ Patient is 57 year old homeless male, no known previous psych h/o, self reported h/o bipolar disorder, denied previous psych admissions, denied h/o suicidal attempts, who was brought in to the hospital for evaluation of depression, inability to function and "thoughts are not right.", passive wish to be with +drug use Patient presented as a poor historian with poor personal hygiene and + strong body odor. Noted to be disorganized and acting bizarre on the unit during first hospital course. Patient was incontinent of urine and feces with tendency of smearing feces on the wall. On 09/19/18, patient complained of indigestion and vomiting. Medical team was called, pt was transferred to the emergency room and subsequently to the medical floor for further evaluation and stabilization. Medical discharge note is provided below for easy referral: Medical floor 09/20/18-09/21/18 Upon Admission: 57-year-old M with a PMH significant for bipolar disorder, heroin abuse, depression, excessive eructation, poorly controlled asthma, GERD, previous PEG tube placement (unknown reason) s/p removal, bronchitis, and urinary incontinence who presents to the ED sent from behavioral health unit at [facility] due to episodes of ground-coffee emesis. Patient is a poor historian, thus, majority of the HPI is obtained from previous reports and chart review. Per Patient's nurse in behavioral health, Patient had 1 BM yesterday that was non-bloody. Patient also admits to having eaten a snack earlier in the evening. Patient was vomiting earlier in the day, however it was previously non-bilious/non-bloody vomitus. Hospital Course: H/H dropped to 10.5 to 9.2. Pt underwent EGD which revealed non-bleeding esophageal ulcer, medium-sized hiatal hernia. Pt found to have + FOBT. No emergent bleeding was noted. Pt was started on carafate, reglan protonix. ~~~~~~~~~~~~~~~~~~~~ PROGRESS NOTE 09/26/18 Patient was interviewed at bedside again this morning. Patient continues to present as quiet, preoccupied and disengaged during questioning. There have been no incidents of aggression/agitation on the unit however patient remains vaguely related and guarded.He really doesn't like to talk to me or the staff. He responds only because it is required and it is without elaboration. He also needed to be encouraged to shower after being incontinent of urine again on Sunday09/22/18 and Sunday09/23/18. Grooming is unkempt today. Nonetheless patient is oriented x3, appetite is good and sleep is good. Patient denies any new concerns. Abdominal pain and nausea have remitted. He continues to deny experiencing any hallucinations or paranoia. Delusions were not elicited. Patient is requesting discharge. There is no acute indication that he is a danger to himself or others so this provider spoke with SW and are working to accommodate his request. Diagnostic Results: Rule out bipolar disorder as per history Rule out substance-induced mood disorder Polysubstance abuse Medication Change: No ( ) Medical Record Reviewed: Yes Mental Status Examination - Cognitive Function Orientation: Person, Place, Situation Memory: Impaired Attention: WNL Concentration: Poor Fund of Knowledge: Poor - Mood Mood: Neutral - Affect Affect: Constricted, Flat - Speech Speech: Soft - Formal Thought Process Formal Thought Process: No Impairment (He denies perceptual disturbance), Other (preoccupied and guarded) - Suicidal Ideation Suicidal Ideation: No - Homicidal Ideation Homicidal Ideation: No Goal/Treatment Plan - Goal/Treatment Plan Progress Toward Problem(s) and Goals/Treatment Plan: * group, milieu and supportive tx * Appreciate f/u by Dr. Jackson/Dr. Hagen on 09/22/18~Pt is feeling better. He reports no nausea/vomiting. He is tolerating his diet well. We will sign off for now. Please re-consult as necessary * Risperdal 0.25 HS increased to 0.5 mg [facility] for psychotic behaviors on 09/22/18. Have discontinued reglan due to NMS risk (appreciate pharmacy and nurse input on 09/22/18) * Ativan 1mg [facility] d/c'ed on 09/25/18, patient only provided prns at this time * Nicoderm CQ for tobacco withdrawal * Consider naltrexone to help patient with sobriety however patient doesn't appear motivated to address his substance use at all * D/C planned for 09/26/18 per patient request. * Vitals reviewed and noted below: Selected Entries 09/25/18 09/25/18 07:13 16:00 Temperature 98.3 F Pulse Rate 80 108 H Respiratory 20 Rate Blood Pressure 115/72 150/98 H * New labs noted below: Laboratory Results - last 24 hr 09/22/18 07:40 WBC 11.9 H RBC 3.40 L Hgb 9.1 L Hct 28.3 L MCV 83.2 MCH 26.8 MCHC 32.2 RDW 14.3 Plt Count 349 MPV 9.0 Neut % (Auto) 61.2 Lymph % (Auto) 22.8 Phillips % (Auto) 12.2 H Eos % (Auto) 3.2 Baso % (Auto) 0.6 Lymph # (Auto) 2.7 Phillips # (Auto) 1.5 H Eos # (Auto) 0.4 Baso # (Auto) 0.07 Absolute Neuts (auto) 7.30 H Neutrophils % (Manual) 50 Band Neutrophils % 1 Lymphocytes % (Manual) 33 Monocytes % (Manual) 8 H Eosinophils % (Manual) 3 Basophils % (Manual) 1 Metamyelocytes % 3 Myelocytes % 1 Platelet Evaluation Normal Large Platelets Present Estimated Date of D/C: 09/27/18
== END 2018-09-27 12:25 | disposition home or self-care (01) | DRG 753 ==
LOC: PSYC 13:19
PROVIDERS: ADMIT Psychiatry & Neurology Psychiatry; ATTEND Psychologist
PROC: GZ3ZZZZ Medication Management (ICD-10-PCS; principal; 2018-09-22)
DX: F31.9 Bipolar disorder, unspecified (principal); K22.10 Ulcer of esophagus without bleeding; F17.213 Nicotine dependence, cigarettes, with withdrawal; F11.10 Opioid abuse, uncomplicated; I10 Essential (primary) hypertension; R32 Unspecified urinary incontinence; K21.9 Gastro-esophageal reflux disease without esophagitis; J45.909 Unspecified asthma, uncomplicated; F41.8 Other specified anxiety disorders; K44.9 Diaphragmatic hernia without obstruction or gangrene; Z59.0 Homelessness

== ENCOUNTER 2018-09-27 20:58 | Emergency (ER) | payer OTHER ==
[2018-09-27 21:13] VITALS: BMI 32.6
[2018-09-27 21:23] VITALS: TEMP 97.7
--- NOTE | 2018-09-27 21:31 | ED PDOC ---
Arrival/HPI <Julio César Phillips - Last Filed: 09/27/18 23:28> - General Historian: Patient - History of Present Illness Narrative History of Present Illness (Text): 57 year old male, whose past medical history includes bipolar disorder, depression, heroin abuse, asthma, GERD, who presents to the ED requesting psychiatric evaluation. Patient was recently discharged from the psychiatric floor here at [facility] and states he went to follow-up with the facility recommended to him. Patient states he was rejected and came back here. Patient admits to using 1 bag of heroin intranasally. Patient denies any suicidal ideation, homicidal ideation, chest pain, shortness of breath, nausea, vomiting, diarrhea, urinary symptoms, or any other somatic complaints. Symptom Onset: Gradual Symptom Course: Unchanged Activities at Onset: Light Context: Street <Chelle Calero - Last Filed: 09/28/18 02:13> - General Chief Complaint: Psychiatric Evaluation Time Seen by Provider: 09/27/18 21:23 Past Medical History - Provider Review Nursing Documentation Reviewed: Yes - Infectious Disease Hx of Infectious Diseases: None - Cardiac Hx Hypertension: Yes (sometimes takes medication) - Pulmonary Hx Asthma: Yes - Neurological Hx Neurological Disorder: No - HEENT Hx HEENT Disorder: No - Renal Hx Renal Disorder: No - Endocrine/Metabolic Hx Endocrine Disorders: No - Hematological/Oncological Hx Blood Transfusions: (UNKNOWN) Hx Blood Transfusion Reaction: (UNKNOWN) - Integumentary Hx Dermatological Disorder: No - Musculoskeletal/Rheumatological Hx Falls: No - Gastrointestinal Hx Gastrointestinal Disorders: No - Genitourinary/Gynecological Hx Genitourinary Disorders: No - Psychiatric Hx Bipolar Disorder: Yes Hx Depression: Yes Hx Schizophrenia: Yes Hx Substance Use: Yes (last used 09/27/18) - Surgical History Other/Comment: peg tube insertion - Anesthesia Hx Anesthesia Reactions: No Hx Malignant Hyperthermia: No <Chelle Calero - Last Filed: 09/28/18 02:13> Family/Social History - Physician Review Nursing Documentation Reviewed: Yes Family/Social History: No Known Family HX Smoking Status: Light Smoker < 10 Cigarettes Daily Hx Alcohol Use: No Hx Substance Use: Yes (last used 09/27/18) Substance used: heroine <Chelle Calero - Last Filed: 09/28/18 02:13> Allergies/Home Meds <Julio César Phillips - Last Filed: 09/27/18 23:28> <Chelle Calero - Last Filed: 09/28/18 02:13> Allergies/Adverse Reactions: Allergies FISH Allergy (Verified 09/27/18 21:14) ANAPHYLAXIS Review of Systems - Review of Systems Constitutional: Normal. absent: Fevers Eyes: Normal. absent: Vision Changes ENT: Normal. absent: Sore Throat, Sinus Congestion Respiratory: Normal. absent: SOB Cardiovascular: Normal. absent: Chest Pain, Palpitations Gastrointestinal: Normal. absent: Abdominal Pain, Nausea, Vomiting Genitourinary Male: Normal. absent: Dysuria Musculoskeletal: Normal. absent: Back Pain, Neck Pain Skin: Normal. absent: Rash Neurological: Normal. absent: Headache, Dizziness Psychiatric: Depression. absent: Suicidal Ideation <Chelle Calero - Last Filed: 09/28/18 02:13> Physical Exam Vital Signs Temp Pulse Resp BP Pulse Ox 09/27/18 21:23 97.7 F 100 H 18 112/78 97 <Julio César Phillips - Last Filed: 09/27/18 23:28> Vital Signs Reviewed: Yes Vital Signs Temp Pulse Resp BP Pulse Ox 09/27/18 21:23 97.7 F 100 H 18 112/78 97 Temperature: Afebrile Blood Pressure: Normal Pulse: Regular Respiratory Rate: Normal Appearance: Positive for: Well-Appearing, Non-Toxic, Comfortable Pain Distress: None Mental Status: Positive for: Alert and Oriented X 3 - Systems Exam Head: Present: Atraumatic, Normocephalic Pupils: Present: PERRL Extroacular Muscles: Present: EOMI Conjunctiva: Present: Normal Mouth: Present: Moist Mucous Membranes Neck: Present: Normal Range of Motion. No: Meningeal Signs, Paraspinal Tenderness Respiratory/Chest: Present: Clear to Auscultation, Good Air Exchange. No: Respiratory Distress, Accessory Muscle Use Cardiovascular: Present: Regular Rate and Rhythm, Normal S1, S2, Peripheal Pulses Present Abdomen: Present: Normal Bowel Sounds. No: Tenderness, Distention, Peritoneal Signs Back: Present: Normal Inspection. No: CVA Tenderness Upper Extremity: Present: Normal Inspection, Normal ROM, NORMAL PULSES, Neurovascularly Intact, Capillary Refill < 2s. No: Cyanosis, Edema, Temperature Abnormalties Lower Extremity: Present: Normal Inspection, Normal ROM Neurological: Present: GCS=15, Speech Normal, Motor Func Grossly Intact, Normal Sensory Function, Gait Normal Skin: Present: Warm, Dry, Normal Color. No: Rashes Psychiatric: Present: Alert, Oriented x 3. No: Normal Affect (flat affect) <Chelle Calero - Last Filed: 09/28/18 02:13> Medical Decision Making - Lab Interpretations Lab Results: Total Bilirubin 0.1 mg/dL (0.2-1.3) L 09/27/18 21:45 AST 17 U/L (17-59) D 09/27/18 21:45 ALT 18 U/L (7-56) 09/27/18 21:45 Alkaline Phosphatase 85 U/L (38-126) 09/27/18 21:45 Total Protein 7.4 g/dL (5.8-8.3) 09/27/18 21:45 Albumin 4.0 g/dL (3.0-4.8) 09/27/18 21:45 Globulin 3.5 gm/dL 09/27/18 21:45 Albumin/Globulin Ratio 1.1 (1.1-1.8) 09/27/18 21:45 - RAD Interpretation Radiology Orders: 09/27/18 21:32 CHEST PORTABLE [RAD] Stat <Julio César Phillips - Last Filed: 09/27/18 23:28> ED Course and Treatment: 09/27/18 22:12 Initial Plan: * CBC, CMP * Alcohol, acetaminophen, salicylate levels * UA * UDS * EKG * CXR * PES Eval 09/28/18 01:14 Repeat CBC shows improvement in leukocytosis and anemia. Pt pending urine. - Lab Interpretations Lab Results: 09/28/18 00:18 09/27/18 21:45 Lab Results 09/28/18 00:18: WBC 9.9 D, RBC 3.47 L, Hgb 10.0 L, Hct 29.1 L, MCV 83.9, MCH 28.8, MCHC 34.4, RDW 14.8 H, Plt Count 184, MPV 10.4, Neut % (Auto) 75.3 H, Lymph % (Auto) 16.5 L, Kane % (Auto) 7.2 H, Eos % (Auto) 0.8 L, Baso % (Auto) 0.2, Lymph # (Auto) 1.6, Kane # (Auto) 0.7 H, Eos # (Auto) 0.1, Baso # (Auto) 0.02, Absolute Neuts (auto) 7.44 H 09/27/18 21:45: Alcohol, Quantitative < 10 09/27/18 21:45: Salicylates < 1 L, Acetaminophen < 10.0 L 09/27/18 21:45: Sodium 137, Potassium 3.9, Chloride 102, Carbon Dioxide 25, Anion Gap 14, BUN 19, Creatinine 1.3, Est GFR ( Amer) > 60, Est GFR (Non- Af Amer) 57, Random Glucose 106, Calcium 9.2, Total Bilirubin 0.1 L, AST 17 D, ALT 18, Alkaline Phosphatase 85, Total Protein 7.4, Albumin 4.0, Globulin 3.5, Albumin/Globulin Ratio 1.1 09/27/18 21:45: WBC 15.7 H D, RBC 3.47 L, Hgb 9.4 L, Hct 28.8 L, MCV 83.0, MCH 27.1, MCHC 32.6, RDW 14.6 H, Plt Count 432, MPV 9.0, Neut % (Auto) 69.7 H, Lymph % (Auto) 19.9 L, Kane % (Auto) 9.2 H, Eos % (Auto) 1.0 L, Baso % (Auto) 0.2, Lymph # (Auto) 3.1, Kane # (Auto) 1.4 H, Eos # (Auto) 0.2, Baso # (Auto) 0.03, Absolute Neuts (auto) 10.93 H 09/27/18 01:30: Urine Opiates Screen Positive H, Urine Methadone Screen Negative, Ur Barbiturates Screen Negative, Ur Phencyclidine Scrn Negative, Ur Amphetamines Screen Negative, U Benzodiazepines Scrn Negative, U Oth Cocaine Metabols Positive H, U Cannabinoids Screen Negative I have reviewed the lab results: Yes - RAD Interpretation Retail Presentation Specialist: Radiologist <Chelle Calero - Last Filed: 09/28/18 02:13> - PA / [employer] / Resident Statement MD/DO has reviewed & agrees with the documentation as recorded. <Julio César Phillips - Last Filed: 09/27/18 23:28> - Scribe Statement The provider has reviewed the documentation as recorded by the Sandeep Chahal Provider Scribe Attestation: All medical record entries made by the Scribe were at my direction and pe rsonally dictated by me. I have reviewed the chart and agree that the record accurately reflects my personal performance of the history, physical exam, medical decision making, and the department course for this patient. I have also personally directed, reviewed, and agree with the discharge instructions and disposition. <Chelle Calero - Last Filed: 09/28/18 02:13> Disposition/Present on Arrival <Julio César Phillips - Last Filed: 09/27/18 23:28> - Present on Arrival Any Indicators Present on Arrival: No History of DVT/PE: No History of Uncontrolled Diabetes: No Urinary Catheter: No History of Decub. Ulcer: No History Surgical Site Infection Following: Orthopedic Procedures - Disposition Have Diagnosis and Disposition been Completed?: Yes Disposition Time: 02:13 Patient Plan: Discharge <Chelle Calero - Last Filed: 09/28/18 02:13> - Disposition Diagnosis: Depression, Lower resp. tract infection, Heroin use disorder, mild Disposition: HOME/ ROUTINE Patient Problems: Current Active Problems Problem Status Onset Depression Acute Lower resp. tract infection Acute Heroin use disorder, mild Acute Condition: IMPROVED Discharge Instructions (ExitCare): Depression, Adult (DC) Additional Instructions: Take Zpak as directed Followup as directed by the psychiatric team Discontinue drug use Return to ER with any new/worsening symptoms Prescriptions: Azithromycin [Z-Martin] 250 mg PO DAILY #6 tab Referrals: [facility]] - Follow up with primary Forms: CoverMyMeds (Maori), WORK NOTE
[2018-09-27 21:53] LABS: BASO # 0.03 K/mm3 (0.0-2.0); BASO % 0.2 % (0.0-3.0); EOS # 0.2 (0.0-0.7); HEMOGLOBIN 9.4 g/dL (14.0-18.0); LYMPH # 3.1 (1.2-3.4); LYMPH % 19.9 % (22.0-35.0); MEAN CORPUSCULAR HEMOGLOBIN 27.1 pg (25.0-35.0); MEAN CORPUSCULAR HGB CONC 32.6 g/dl (31.0-37.0); MONO # 1.4 (0.1-0.6); MONO % 9.2 % (1.0-6.0); RBC 3.47 10^6/uL (3.5-6.1); RED CELL DISTRIBUTION WIDTH 14.6 % (11.5-14.5); WHITE BLOOD COUNT 15.7 10^3/uL (4.5-11.0)
[2018-09-27 22:09] LABS: ALB/GLOB RATIO 1.1 (1.1-1.8); ALT/SGPT 18 U/L (7-56); AST/SGOT 17 U/L (17-59); BLOOD UREA NITROGEN 19 mg/dL (7-21); CALCIUM 9.2 mg/dL (8.4-10.5); GFR NON-AFRICAN AMERICAN 57
[2018-09-27 22:11] LABS: ACETAMINOPHEN < 10.0 ug/ml (10.0-20.0); SALICYLATE < 1 mg/dL (2.0-20.0)
[2018-09-28 00:48] LABS: RBC 3.47 10^6/uL (3.5-6.1); WHITE BLOOD COUNT 9.9 10^3/uL (4.5-11.0)
[2018-09-28 00:49] LABS: MEAN CELL VOLUME 83.9 fl (80.0-105.0); MEAN CORPUSCULAR HEMOGLOBIN 28.8 pg (25.0-35.0); MEAN CORPUSCULAR HGB CONC 34.4 g/dl (31.0-37.0); RED CELL DISTRIBUTION WIDTH 14.8 % (11.5-14.5)
[2018-09-28 00:50] LABS: BASO # 0.02 K/mm3 (0.0-2.0); BASO % 0.2 % (0.0-3.0); EOS # 0.1 (0.0-0.7); EOS % 0.8 % (1.5-5.0); LYMPH # 1.6 (1.2-3.4); LYMPH % 16.5 % (22.0-35.0); MEAN PLATELET VOLUME 10.4 fl (7.0-11.0); MONO # 0.7 (0.1-0.6); MONO % 7.2 % (1.0-6.0)
[2018-09-28 01:42] LABS: URINE BILIRUBIN NEGATIVE (NEGATIVE); URINE BLOOD NEGATIVE (NEGATIVE); URINE GLUCOSE (UA) NEGATIVE (NEGATIVE); URINE LEUKOCYTE ESTERASE NEGATIVE Leu/uL (NEGATIVE); URINE PROTEIN NEGATIVE mg/dL (<30 mg/dL); URINE UROBILINOGEN 0.2 E.U./dL (<1 E.U./dL)
[2018-09-28 02:10] LABS: BARBITURATES, UR NEGATIVE (NEGATIVE); BENZODIAZEPINES, UR NEGATIVE (NEGATIVE); OPIATES, UR POSITIVE (NEGATIVE); PHENCYCLIDINE, UR NEGATIVE (NEGATIVE)
[2018-09-28 02:42] LABS: URINE APPEARANCE CLEAR (CLEAR); URINE COLOR YELLOW (YELLOW)
[2018-09-28 03:13] VITALS: BP 133/89; PULSE 78; RESP 17; O2SAT 100
--- NOTE | 2018-09-28 09:38 | RAD ---
Date of service: 09/27/2018 HISTORY: psych COMPARISON: Chest radiograph dated 09/20/2018. TECHNIQUE: 1 view obtained. FINDINGS: LUNGS: No active pulmonary disease. PLEURA: No significant pleural effusion identified, no pneumothorax apparent. CARDIOVASCULAR: No aortic atherosclerotic calcification present. Normal cardiac size. No pulmonary vascular congestion. OSSEOUS STRUCTURES: No significant abnormalities. VISUALIZED UPPER ABDOMEN: Normal. OTHER FINDINGS: Right chest wall soft tissue round metallic fragments, unchanged IMPRESSION: No active disease.
--- NOTE | 2018-09-28 15:03 | CARD ---
APPROVED REPORT Date of service: 09/27/2018 EKG Measurement Heart [id number] <Conclusion> Normal sinus rhythm Normal ECG
== END 2018-09-28 03:12 | disposition home or self-care (01) ==
LOC: ED 20:58
DX: F32.9 Major depressive disorder, single episode, unspecified (principal); J22 Unspecified acute lower respiratory infection; F11.90 Opioid use, unspecified, uncomplicated; I10 Essential (primary) hypertension; F25.0 Schizoaffective disorder, bipolar type; F17.210 Nicotine dependence, cigarettes, uncomplicated